=== PATIENT | male | born 1955 | race Caucasian/White ===

== ENCOUNTER → 2021-09-19 | Outpatient (CLI) | payer MEDICARE | LOC: CARD 11:30 | PROVIDERS: ATTEND Nurse Practitioner | DX: I35.1 Nonrheumatic aortic (valve) insufficiency (principal); I10 Essential (primary) hypertension | CPT/HCPCS: 93306 ==

== ENCOUNTER → 2021-11-07 | Outpatient (CLI) | payer MEDICARE ==
[~2021-11-07] MED LIST: RT-ALBUTEROL SULF 2.5 MG/3 ML PRE-MIX VIAL INH ONE
== END ==
LOC: RT 13:00
PROVIDERS: ATTEND Nurse Practitioner Family
DX: R06.02 Shortness of breath (principal)
CPT/HCPCS: 94060; 94726; 94729

== ENCOUNTER → 2021-11-09 | Outpatient (CLI) | payer MEDICARE ==
[~2021-11-09] MED LIST changes: +CATHETER FLUSH 10 ML SYR IVP PRN; +REGADENOSON 0.4 MG/5 ML SYR (LEXISCAN) IV ONE; -RT-ALBUTEROL SULF 2.5 MG/3 ML PRE-MIX VIAL INH ONE
[2021-11-09 08:48] VITALS: BP 148/60
== END ==
LOC: CARD 07:53
PROVIDERS: ATTEND Internal Medicine Cardiovascular Disease
DX: R06.09 Other forms of dyspnea (principal)
CPT/HCPCS: 78452; 93017; A9502

== ENCOUNTER → 2021-11-13 | Outpatient (CLI) | payer MEDICARE ==
[~2021-11-13] MED LIST changes: -CATHETER FLUSH 10 ML SYR IVP PRN; +GADOTERATE 0.5 MMOL/ML (CLARISCAN) 20 ML VIAL IV ONE; -REGADENOSON 0.4 MG/5 ML SYR (LEXISCAN) IV ONE
--- NOTE | 2021-11-13 15:44 | Diagnostic Imaging Report ---
PROCEDURE: MR imaging of the brain with and without contrast. TECHNIQUE: Multiplanar, multisequence MR imaging of the brain was performed with and without contrast. INDICATION: Balance issues. COMPARISON: No prior studies are available for comparison. FINDINGS: Ventricles and sulci are prominent, consistent with cerebral atrophy. Extensive periventricular and subcortical white matter changes are noted, consistent with chronic microvascular ischemia. 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 There appears to be an old infarct in the left occipital lobe. No diffusion restriction is seen to suggest acute ischemia. There are old infarcts in the bilateral thalami. The normal expected flow-voids within the carotid siphons are seen. No abnormal enhancement is identified following contrast administration. The corpus callosum is unremarkable. The sella and parasellar structures are unremarkable. IMPRESSION: Chronic changes, as described. No acute abnormality is detected. Dictated by: Dictated on workstation # [id number]
== END ==
LOC: RAD 14:45
PROVIDERS: ATTEND Nurse Practitioner
DX: R26.89 Other abnormalities of gait and mobility (principal)
CPT/HCPCS: 70553

== ENCOUNTER 2021-12-25 16:51 | Emergency (ER) | payer MEDICARE ==
[~2021-12-25] VITALS: Ht 177 cm; Wt 69.0 kg
[2021-12-25] MEDS ORDERED: LACTATED RINGERS 1,000 ML IV STA (17:08)
--- NOTE | 2021-12-25 17:14 | ED General ---
General Chief Complaint: Dizziness/Syncope Stated Complaint: MULTIPLE FALLS,LIGHTHEADED,DIZZY Nursing Triage Note: PT TO ED IN WC WITH DAUGHTER BY [place] WITH C/O DIZZINESS X 2 DAYS. DENIES CP, SOB, N/V/D, URINARTY SX, FEVER, OR ANY OTHER SX AT THIS TIME. PT REPORTS HE FELL MULTIPLE TIMES OVER THE LAST FEW DAYS. DENIES INJURIES, LOC, OR HEAD INJURY. Source of Information: Patient, Family Exam Limitations: No Limitations History of Present Illness Date Seen by Provider: Dec 25, 2021 Time Seen by Provider: 16:53 Initial Comments 66-year-old male with past medical history of CAD with no stenting and normal cardiac work-up recently (within the past couple months has had a normal stress test, carotid duplex ultrasound with no concerns, and TTE with no concerns), hypertension, hyperlipidemia, depression, current smoker coming in due to feeling lightheaded and multiple falls over the past few days. He states he has not been eating and drinking well, and when he stands his vision starts to go out. If he sits back down it gets better. The falls started over the weekend and he has had at least 5 of them. He states he always can feel it coming because he starts to blackout, and he is able to get himself to the ground slowly. He has not had any big falls where he hit his head or pass out. He always has maintained his consciousness each time without full loss of it. He is able to get up and ambulate after each event as well. He is denying any pain anywhere including any chest pain, shortness of breath, abdominal pain, nausea, vomiting, diarrhea, fever, chills, weakness focally, numbness, headache, vision changes, neck stiffness, or any other concerns. He recently started an antidepressant, but otherwise has been on his blood pressure medicine for several months. Allergies and Home Medications Allergies Coded Allergies: morphine (Unverified Allergy, Mild, Itching, 11/07/21) Uncoded Allergies: codine (Allergy, Mild, Itching, 11/07/21) Patient Home Medication List Home Medication List Reviewed: Yes Review of Systems Review of Systems Constitutional: No fever EENTM: No blurred vision Respiratory: no symptoms reported Cardiovascular: other (Near syncope) Gastrointestinal: no symptoms reported Genitourinary: no symptoms reported Musculoskeletal: no symptoms reported Skin: no symptoms reported Psychiatric/Neurological: Other (Lightheaded) Hematologic/Lymphatic: No Symptoms Reported Immunological/Allergic: no symptoms reported All Other Systems Reviewed Negative Unless Noted: Yes Past Diasvzz-Kcsfyb-Cwcytp Hx Patient Social History Tobacco Use?: Yes Tobacco type used: Cigarettes Past Medical History Surgery/Hospitalization HX: femoral bypass, meniscus, hernia repair Surgeries: Yes Physical Exam Vital Signs Vital Signs - First Documented 12/25/21 16:59 Temp 36.3 Pulse 84 Resp 21 B/P (MAP) 142/102 (115) Pulse Ox 98 O2 Delivery Room Air Capillary Refill : Less Than 3 Seconds Height, Weight, BMI Height: '" Weight: lbs. oz. kg; 22.00 BMI Method: General Appearance: No Apparent Distress, WD/WN Eyes: Bilateral Eye Normal Inspection, Bilateral Eye PERRL, Bilateral Eye EOMI HEENT: PERRL/EOMI, Normal ENT Inspection, Pharynx Normal Neck: Full Range of Motion, Normal Inspection, Non Tender, Supple Respiratory: Chest Non Tender, Lungs Clear, Normal Breath Sounds, No Accessory Muscle Use, No Respiratory Distress Cardiovascular: Regular Rate, Rhythm, No Edema, Normal Peripheral Pulses Gastrointestinal: Normal Bowel Sounds, Non Tender, Soft; No Distended, No Guarding Back: Normal Inspection, No CVA Tenderness, No Vertebral Tenderness Extremity: Normal Capillary Refill, Normal Inspection, Normal Range of Motion, Non Tender, No Calf Tenderness, No Pedal Edema Neurologic/Psychiatric: Alert, Oriented x3, No Motor/Sensory Deficits, Normal 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, 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 Norm as Tested, Other (Normal zdvyqs-hj-kweo, normal fndc-ff-ieet, normal gait, normal voice, normal recognition, normal visual ac uity and visual waddell) Skin: Normal Color, Warm/Dry Lymphatic: No Adenopathy Progress/Results/Core Measures Suspected Sepsis SIRS Temperature: Pulse: 84 Respiratory Rate: 21 Laboratory Tests 12/25/21 17:03: White Blood Count 6.8 Blood Pressure 142 /102 Mean: 115 Laboratory Tests 12/25/21 17:03: Creatinine 0.88, Platelet Count 173, Total Bilirubin 0.5 Results/Orders Lab Results Laboratory Tests Test 12/25/21 17:03 Range/Units White Blood Count 6.8 4.3-11.0 10^3/uL Red Blood Count 4.45 4.30-5.52 10^6/uL Hemoglobin 14.7 13.3-17.7 g/dL Hematocrit 42 40-54 % Mean Corpuscular Volume 95 80-99 fL Mean Corpuscular Hemoglobin 33 25-34 pg Mean Corpuscular Hemoglobin Concent 35 32-36 g/dL Red Cell Distribution Width 12.0 10.0-14.5 % Platelet Count 173 130-400 10^3/uL Mean Platelet Volume 10.2 9.0-12.2 fL Immature Granulocyte % (Auto) 0 % Neutrophils (%) (Auto) 74 42-75 % Lymphocytes (%) (Auto) 18 12-44 % Monocytes (%) (Auto) 7 0-12 % Eosinophils (%) (Auto) 1 0-10 % Basophils (%) (Auto) 0 0-10 % Neutrophils # (Auto) 5.0 1.8-7.8 10^3/uL Lymphocytes # (Auto) 1.2 1.0-4.0 10^3/uL Monocytes # (Auto) 0.5 0.0-1.0 10^3/uL Eosinophils # (Auto) 0.0 0.0-0.3 10^3/uL Basophils # (Auto) 0.0 0.0-0.1 10^3/uL Immature Granulocyte # (Auto) 0.0 0.0-0.1 10^3/uL Sodium Level 138 135-145 MMOL/L Potassium Level 4.1 3.6-5.0 MMOL/L Chloride Level 103 98-107 MMOL/L Carbon Dioxide Level 24 21-32 MMOL/L Anion Gap 11 5-14 MMOL/L Blood Urea Nitrogen 14 7-18 MG/DL Creatinine 0.88 0.60-1.30 MG/DL Estimat Glomerular Filtration Rate 94 BUN/Creatinine Ratio 16 Glucose Level 257 H 70-105 MG/DL Calcium Level 10.1 8.5-10.1 MG/DL Corrected Calcium 10.2 H 8.5-10.1 MG/DL Magnesium Level 2.0 1.6-2.4 MG/DL Total Bilirubin 0.5 0.1-1.0 MG/DL Aspartate Amino Transf (AST/SGOT) 13 5-34 U/L Alanine Aminotransferase (ALT/SGPT) 17 0-55 U/L Alkaline Phosphatase 70 40-136 U/L Troponin I < 0.028 <0.028 NG/ML B-Type Natriuretic Peptide 84.8 <100.0 PG/ML Total Protein 6.4 6.4-8.2 GM/DL Albumin 3.9 3.2-4.5 GM/DL My Orders Orders - LORENA GILBERT MD Chest 1 View, Ap/Pa Only (12/25/21 17:08) Bnp [place] (12/25/21 17:08) Cbc With Automated Diff (12/25/21 17:08) Comprehensive Metabolic Panel (12/25/21 17:08) Magnesium (12/25/21 17:08) Troponin I [place] (12/25/21 17:08) Ed Iv/Invasive Line Start (12/25/21 17:08) Ekg Tracing (12/25/21:) Monitor-Rhythm Ecg Trace Only (12/25/21 17:08) Lactated Ringers (Lr 1000 Ml Iv Solution (12/25/21 17:08) Vital Signs/I&O 12/25/21 16:59 Temp 36.3 Pulse 84 Resp 21 B/P (MAP) 142/102 (115) Pulse Ox 98 O2 Delivery Room Air Capillary Refill : Less Than 3 Seconds Blood Pressure Mean: 115 Progress Note : Progress Note 66-year-old male with above history coming in feeling lightheaded with multiple near syncopal episodes. He had multiple falls where he is slowly taken himself to the ground with no real trauma or injury. EKG with no acute ischemic changes. An IV was placed and basic labs were obtained including cardiac biomarkers. Chest x-ray ordered as well. I personally did orthostatics on the patient and his blood pressure dropped 30 points and his heart rate jumped by 20 which is consistent with orthostasis. He has within the past several months increased blood pressure medications and recently has been eating and drinking less. We will give him some IV fluids here. Patient's labs unremarkable including negative troponin. Chest x-ray with no acute findings. The patient previously had alcohol use disorder, and has recently stopped drinking quite a bit over the past couple months. I will recommend he start B12, thiamine, and folate at home. ECG Initial ECG Impression Date: Dec 25, 2021 Initial ECG Impression Time: 17:12 Initial ECG Rate: 63 Initial ECG Rhythm: Normal Sinus Comment Normal sinus rhythm, narrow QRS, normal axis, no significant ST changes or T wave abnormalities Diagnostic Imaging Diagonstic Imaging: Xray Plain Films/CT/US/NM/MRI: chest Comments [facility]. [place], [place] NAME: JUSTIN HERNANDEZ I [facility] REC#: [id number] PT STATUS: REG ER : 1955 PHYSICIAN: LORENA GILBERT MD ADMIT DATE: 12/25/21/ER Draft Date of Exam:12/25/21 CHEST 1 VIEW, AP/PA ONLY INDICATION: syncope and multiple falls COMPARISON: None FINDINGS: Single frontal view of the chest demonstrates normal heart size and pulmonary vascularity. The lungs are well aerated and clear. No large pleural effusion or pneumothorax is seen. The visualized osseous structures show no acute abnormalities. IMPRESSION: 1. No acute cardiopulmonary process. Dictated on workstation # [id number] Dict: 12/25/211734 Trans: 12/25/211735 CVB [id number] Interpreted by: BULMARO MCKEON MD Electronically signed by: Departure Impression Primary Impression: Orthostatic dizziness Disposition: HOME, SELF-CARE Condition: Stable Departure-Patient Inst. Decision time for Depature: 18:00 [place]: [facility] [place] Primary Care Physician CODY BEAN APRN (Family) Primary Care Physician Patient Instructions: Orthostatic Hypotension (DC) Add. Discharge Instructions: Your blood pressure does drop and your heart rate races when you stand up from lying while in the ER. This typically is related to medications or being dehydrated. We did give you some IV fluids. Her lab work was otherwise unremar kable. It is less likely to be the new paroxetine and more likely to be related to your blood pressure medicines. I would try cutting your amlodipine back in half for a week to see if your symptoms improve. Follow-up with your regular doctor if things are not improving to discuss other medication changes potentially. I do recommend you buy [id number]-[id number] vitamin B1, B12, and folate. I recommend taking this daily. Work/School Note: Work Release Form Date Seen in the Emergency Department: Dec 25, 2021 Return to Work: Dec 26, 2021 Restrictions: No Restrictions LORENA GILBERT MD Dec 25, 2021 17:14
[2021-12-25 17:21] LABS: BASOPHILS % (AUTO) 0 % (0-10); EOSINOPHILS % (AUTO) 1 % (0-10); HEMATOCRIT 42 % (40-54); HEMOGLOBIN 14.7 g/dL (13.3-17.7); LYMPHOCYTES # (AUTO) 1.2 10^3/uL (1.0-4.0); LYMPHOCYTES % (AUTO) 18 % (12-44); MEAN CORPUSCULAR HEMOGLOBIN 33 pg (25-34); MEAN CORPUSCULAR HGB CONC 35 g/dL (32-36); MEAN CORPUSCULAR VOLUME 95 fL (80-99); MEAN PLATELET VOLUME 10.2 fL (9.0-12.2); MONOCYTES # (AUTO) 0.5 10^3/uL (0.0-1.0); MONOCYTES % (AUTO) 7 % (0-12); NEUTROPHILS % (AUTO) 74 % (42-75); PLATELET COUNT 173 10^3/uL (130-400); WHITE BLOOD COUNT 6.8 10^3/uL (4.3-11.0)
--- NOTE | 2021-12-25 17:37 | Diagnostic Imaging Report ---
INDICATION: syncope and multiple falls COMPARISON: None FINDINGS: Single frontal view of the chest demonstrates normal heart size and pulmonary vascularity. The lungs are well aerated and clear. No large pleural effusion or pneumothorax is seen. The visualized osseous structures show no acute abnormalities. IMPRESSION: 1. No acute cardiopulmonary process. Dictated by: Dictated on workstation # [id number]
[2021-12-25 17:41] LABS: ALANINE AMINOTRANSFERASE 17 U/L (0-55); ALBUMIN 3.9 GM/DL (3.2-4.5); ALKALINE PHOSPHATASE 70 U/L (40-136); BILIRUBIN,TOTAL 0.5 MG/DL (0.1-1.0); BUN/CREATININE RATIO 16; CALCIUM 10.1 MG/DL (8.5-10.1); CARBON DIOXIDE 24 MMOL/L (21-32); CHLORIDE 103 MMOL/L (98-107); CREATININE SERUM 0.88 MG/DL (0.60-1.30); GFR ESTIMATED 94; GLUCOSE 257 MG/DL (70-105); POTASSIUM 4.1 MMOL/L (3.6-5.0); SODIUM 138 MMOL/L (135-145); TOTAL PROTEIN 6.4 GM/DL (6.4-8.2)
[2021-12-25 18:00] VITALS: BP 136/82
== END 2021-12-25 18:00 | disposition home or self-care (01) ==
LOC: EDUNIT# 16:51 → ER 16:54
DX: R42 Dizziness and giddiness (principal); R55 Syncope and collapse; R29.6 Repeated falls; F17.210 Nicotine dependence, cigarettes, uncomplicated; Z28.310 Unvaccinated for COVID-19
CPT/HCPCS: 36415; 71045; 80053; 83735; 83880; 84484; 85025; 93005; 93041

== ENCOUNTER → 2022-01-14 | Outpatient (CLI) | payer MEDICARE ==
[~2022-01-14] MED LIST changes: +FUROSEMIDE 40 MG/4 ML INJ (LASIX) IVP ONE; +FUROSEMIDE 40 MG/4 ML INJ (LASIX) ONE; -GADOTERATE 0.5 MMOL/ML (CLARISCAN) 20 ML VIAL IV ONE
[2022-01-14] MEDS: CATHETER FLUSH 10 ML SYR IVP PRN ×2 (07:22→07:37)
--- NOTE | 2022-01-14 15:42 | Diagnostic Imaging Report ---
EXAMINATION: Lasix renogram INDICATION: Left ureteral obstruction COMPARISON: None TECHNIQUE: Following the IV administration of 4.99 mCi of Tc 99m MAG3, sequential dynamic images of the kidneys were obtained in the posterior projection for 30 minutes. After the IV administration of Lasix, 40 mg, additional images were acquired for 30 minutes. Time activity whole kidney curves were analyzed. FINDINGS: There is slight asymmetric uptake and distribution of the radiopharmaceutical within the renal cortex of each kidney and the differential function is 45.2 % for the right and 54.8 % for the left kidney. The right kidney is slightly smaller than the left kidney. On the right, the time to peak activity is 4.48 minutes with a T-one-half emptying time of 7 minutes. Following Lasix administration, there is continued emptying of the pelvis with a Lasix T-one-half emptying time of 4.5 minutes. On the left, the time to peak activity is delayed at 16.48minutes with a T-one-half emptying time of 10 minutes. Following Lasix administration, there is continued emptying of the pelvis with a Lasix T-one-half emptying time of 10 minutes. IMPRESSION: 1. Slightly smaller right kidney compared to the left kidney. 2. Relatively normal function of the RIGHT kidney. 3. Findings do suggest obstructive features of the LEFT kidney/ureter. Dictated by: Dictated on workstation # [id number]
== END ==
LOC: CARD 07:00
PROVIDERS: ATTEND Urology
DX: N27.0 Small kidney, unilateral (principal); N13.5 Crossing vessel and stricture of ureter without hydronephrosis
CPT/HCPCS: 78708; A9562

== ENCOUNTER → 2022-02-22 | Outpatient (CLI) | payer MEDICARE ==
--- NOTE | 2022-02-22 16:11 | Diagnostic Imaging Report ---
CLINICAL INDICATION: Patient has chronic cervical spine pain. Patient has history of old injury. EXAM: MRI of the cervical spine performed without IV contrast. Sequences include sagittal T2, sagittal T1, sagittal STIR, and axial T2. COMPARISON: None. FINDINGS: There is no acute cervical spine fracture or dislocation. There are Modic type I degenerative signal changes involving the C3-C4 and C5-C6 levels. There are hypertrophic spurs involving the cervical spine and facet arthropathy. Limited visualization of posterior fossa is unremarkable. There is intraosseous hemangioma within the T3 vertebra. There is localized deformity of the cord seen at the C5-C6 levels. There is motion artifact and CSF flow artifact which limits evaluation of the cervical cord. There are hypertrophic spurs involving the cervical spine. C1-C2: There are degenerative spurs involving the atlantoodontoid interval. There is no significant central canal narrowing. C2-C3: There is mild bilateral facet arthropathy. There is a small posterior disk bulge. There is no significant central canal narrowing. There is mild right neural foramen narrowing. There is no significant left neural foramen narrowing. C3-C4: There is mild diffuse disk bulge. There are hypertrophic disk spurs in the right subarticular region. There is mild to moderate central canal stenosis. There is severe right neural foramen narrowing. There is no significant left neural foramen narrowing. C4-C5: There is diffuse disk bulge and small right uncinate spurs. There is mild central canal narrowing. There is moderate to severe bilateral neural foramen narrowing with the right side worse than the left. C5-C6: There is a diffuse disk bulge with moderate loss of disk space height and bilateral uncinate spurs. There is severe bilateral neural foramen narrowing. There is severe central canal stenosis. C6-C7: There is diffuse disk bulge with a posterior disk bulge. There is moderate left facet arthropathy/hypertrophy and moderate right facet arthropathy. There is mild to moderate central canal stenosis. There is moderate left neural foramen narrowing and mild right neural foramen narrowing. C7-T1: There is no significant central canal or neural foramen narrowing. T1-T2: There is a small posterior disk bulge. There is no significant central canal narrowing. There is mild bilateral neural foramen narrowing. IMPRESSION: There is multilevel cervical spine degenerative disk disease which is described above. Dictated by: Dictated on workstation # [id number]
== END ==
LOC: RAD 14:45
PROVIDERS: ATTEND Nurse Practitioner
DX: M48.03 Spinal stenosis, cervicothoracic region (principal); M48.05 Spinal stenosis, thoracolumbar region; M47.812 Spondylosis without myelopathy or radiculopathy, cervical region; M50.23 Other cervical disc displacement, cervicothoracic region; Z87.828 Personal history of other (healed) physical injury and trauma
CPT/HCPCS: 72141

== ENCOUNTER 2022-03-04 22:52 | Emergency (ER) | payer MEDICARE ==
[~2022-03-04] VITALS: Ht 177.8 cm; Wt 70.3 kg
[2022-03-04 23:06] LABS: BASOPHILS % (AUTO) 1 % (0-10); EOSINOPHILS % (AUTO) 1 % (0-10); HEMATOCRIT 41 % (40-54); HEMOGLOBIN 14.3 g/dL (13.3-17.7); LYMPHOCYTES # (AUTO) 1.1 10^3/uL (1.0-4.0); LYMPHOCYTES % (AUTO) 19 % (12-44); MEAN CORPUSCULAR HEMOGLOBIN 33 pg (25-34); MEAN CORPUSCULAR HGB CONC 35 g/dL (32-36); MEAN CORPUSCULAR VOLUME 93 fL (80-99); MEAN PLATELET VOLUME 9.9 fL (9.0-12.2); MONOCYTES # (AUTO) 0.4 10^3/uL (0.0-1.0); MONOCYTES % (AUTO) 7 % (0-12); NEUTROPHILS # (AUTO) 4.2 10^3/uL (1.8-7.8); NEUTROPHILS % (AUTO) 72 % (42-75); PLATELET COUNT 181 10^3/uL (130-400); WHITE BLOOD COUNT 5.8 10^3/uL (4.3-11.0)
[2022-03-04 23:15] LABS: POTASSIUM 3.9 MMOL/L (3.6-5.0)
[2022-03-04] MEDS ORDERED: LACTATED RINGERS 1,000 ML IV ONE (23:15)
[2022-03-04 23:16] LABS: CALCIUM 9.5 MG/DL (8.5-10.1)
[2022-03-04 23:21] LABS: CREATININE SERUM 0.84 MG/DL (0.60-1.30)
[2022-03-04 23:23] LABS: MAGNESIUM 2.1 MG/DL (1.6-2.4)
[2022-03-04 23:53] LABS: BILIRUBIN,URINE NEGATIVE (NEGATIVE); CLARITY,URINE CLEAR; COLOR,URINE YELLOW; GLUCOSE, URINE (UA) 1+ (NEGATIVE); KETONES,URINE NEGATIVE (NEGATIVE); LEUKOCYTE ESTERASE ,URINE TRACE (NEGATIVE); NITRITE,URINE NEGATIVE (NEGATIVE); PROTEIN,URINE NEGATIVE (NEGATIVE)
[2022-03-05 00:13] LABS: BACTERIA,URINE NEGATIVE /HPF
[2022-03-05] MEDS ORDERED: TETANUS,DIPTH,PERTUSS P/F (BOOSTRIX) 0.5 ML VIAL IM ONE (02:30)
--- NOTE | 2022-03-05 02:33 | ED Fall/Injury ---
General Chief Complaint: Trauma-Non Activation Stated Complaint: FALL,ALCOHOL INTOXICATION Nursing Triage Note: PT TO ED BY EMS WITH C/O FALL AND ETOH/MARIJUANA INTOXICATION. EMS REPORTS THEY WERE CALLED BY PT FOR FALL, PT HAD GOTTEN OFF FLOOR AND AMB BACK TO BED PRIOR TO EMS ARRIVAL. C/O R SHOULDER AND ELBOW PAIN. DENIES LOC. PT REPORTS HE DRANK A 6 PACK AND AND SMOKE 2 BOWLS OF MARIJUANA TONIGHT. Source: patient, EMS, old records Exam Limitations: no limitations (KULWANT TILLEY) History of Present Illness Date Seen by Provider: Mar 04, 2022 Time Seen by Provider: 22:53 Initial Comments This is a 66yo M with pmhx of HTN, HLD, CAD, depression, tobacco use d/o, alcohol use d/o, marijuana use, stroke (most recent 8mo ago), T2DM, and orthostatic hypotension who was brought by EMS following a fall on the night of 04Mar2022. Endorses drinking a 6 pack of beer and smoking 2 bowls of marijuana the same night prior to the fall. Pt was urinating when he fell in the bathroom and remembers the fall. Fell on his right side, denies loss of consciousness or trauma to the head or neck. Pt was able to ambulate himself back to the bed which was where EMS found the patient. Blood sugar 188, BP 114/96 by EMS. Patient lives on his own and ambulates with a walker. Occurred: just prior to arrival Severity: mild Injuries/Pain Location: head (abrasion at right ear), upper extremity (abration at right and left upper extremity) Context: other (EtOH and Marijuana Intoxication) Loss of Consciousness: no loss of consciousness (KULWANT TILLEY) Allergies and Home Medications Allergies Coded Allergies: morphine (Unverified Allergy, Mild, Itching, 11/07/21) Uncoded Allergies: codine (Allergy, Mild, Itching, 11/07/21) Patient Home Medication List Home Medication List Reviewed: Yes (BASHIR VAIL MD) Review of Systems Review of Systems Constitutional: no symptoms reported Eyes: No Symptoms Reported Respiratory: no symptoms reported Cardiovascular: no symptoms reported Gastrointestinal: no symptoms reported Musculoskeletal: muscle pain (right shoulder and neck), muscle stiffness (right shoulder and neck) Skin: other (Abrasions of right arm, left arm, and right ear) (KULWANT TILLEY) Past Xgtkhbg-Kuvbfz-Jqttno Hx Patient Social History Tobacco Use?: Yes Tobacco type used: Cigarettes Smoking Status: Current Everyday Smoker Use of E-Cig and/or Vaping dev: No Substance use?: Yes Substance type: Marijuana Substance frequency: Daily Alcohol Use?: Yes Alcohol type: Beer Alcohol Frequency: Couple times a week Pt feels they are or have been: No (KULWANT TILLEY) Immunizations Up To Date Influenza Vaccine Up-to-Date: No; Not Current (KULWANT TILLEY) Past Medical History Surgery/Hospitalization HX: femoral bypass, meniscus, hernia repair, HTN Surgeries: Yes (KULWANT TILLEY) Physical Exam Vital Signs Vital Signs - First Documented 03/04/22 22:55 Temp 36.5 Pulse 80 Resp 16 B/P (MAP) 130/85 (100) Pulse Ox 97 O2 Delivery Room Air (BASHIR VAIL MD) Vital Signs Capillary Refill : Less Than 3 Seconds (KULWANT TILLEY) Height, Weight, BMI Height: '" Weight: lbs. oz. kg; 22.00 BMI Method: General Appearance: WD/WN, no apparent distress Cardiovascular: regular rate, rhythm, no edema, no murmur Respiratory: chest non-tender, lungs clear, normal breath sounds, no respiratory distress, no accessory muscle use Extremities: normal range of motion, other (abrasions on right ear, right arm, and left arm. Muscle spasms of the upper cervical spine and right shoulder that patient endorsed "feels good" as it is palpated.) Neurologic/Psychiatric: oriented x 3, abnormal gait (Shuffling gait, pt does use a walker at home but has some ability to ambulate without walker), other (Intoxicated on marijuana and alcohol, euphoric in demeanor) Skin: normal color, warm/dry (KULWANT TILLEY) [place] Coma Score Best Eye Response: (4) Open Spontaneously Best Verbal Response: (5) Oriented Best Motor Response: (6) Obeys Commands Mariia Total: 15 (KULWANT TILLEY) Progress/Results/Core Measures Results/Orders Lab Results Laboratory Tests Test 03/04/22 22:58 03/04/22 23:48 Range/Units White Blood Count 5.8 4.3-11.0 10^3/uL Red Blood Count 4.40 4.30-5.52 10^6/uL Hemoglobin 14.3 13.3-17.7 g/dL Hematocrit 41 40-54 % Mean Corpuscular Volume 93 80-99 fL Mean Corpuscular Hemoglobin 33 25-34 pg Mean Corpuscular Hemoglobin Concent 35 32-36 g/dL Red Cell Distribution Width 12.2 10.0-14.5 % Platelet Count 181 130-400 10^3/uL Mean Platelet Volume 9.9 9.0-12.2 fL Immature Granulocyte % (Auto) 0 % Neutrophils (%) (Auto) 72 42-75 % Lymphocytes (%) (Auto) 19 12-44 % Monocytes (%) (Auto) 7 0-12 % Eosinophils (%) (Auto) 1 0-10 % Basophils (%) (Auto) 1 0-10 % Neutrophils # (Auto) 4.2 1.8-7.8 10^3/uL Lymphocytes # (Auto) 1.1 1.0-4.0 10^3/uL Monocytes # (Auto) 0.4 0.0-1.0 10^3/uL Eosinophils # (Auto) 0.0 0.0-0.3 10^3/uL Basophils # (Auto) 0.0 0.0-0.1 10^3/uL Immature Granulocyte # (Auto) 0.0 0.0-0.1 10^3/uL Sodium Level 136 135-145 MMOL/L Potassium Level 3.9 3.6-5.0 MMOL/L Chloride Level 103 98-107 MMOL/L Carbon Dioxide Level 22 21-32 MMOL/L Anion Gap 11 5-14 MMOL/L Blood Urea Nitrogen 12 7-18 MG/DL Creatinine 0.84 0.60-1.30 MG/DL Estimat Glomerular Filtration Rate 95 BUN/Creatinine Ratio 14 Glucose Level 172 H 70-105 MG/DL Calcium Level 9.5 8.5-10.1 MG/DL Magnesium Level 2.1 1.6-2.4 MG/DL Serum Alcohol 155 H <10 MG/DL Urine Color YELLOW Urine Clarity CLEAR Urine pH 6.0 5-9 Urine Specific [place] <=1.005 1.016-1.022 Urine Protein NEGATIVE NEGATIVE Urine Glucose (UA) 1+ H NEGATIVE Urine Ketones NEGATIVE NEGATIVE Urine Nitrite NEGATIVE NEGATIVE Urine Bilirubin NEGATIVE NEGATIVE Urine Urobilinogen 0.2 < = 1.0 MG/DL Urine Leukocyte Esterase TRACE H NEGATIVE Urine RBC (Auto) NEGATIVE NEGATIVE Urine RBC NONE /HPF Urine WBC NONE /HPF Urine Crystals NONE /LPF Urine Bacteria NEGATIVE /HPF Urine Casts NONE /LPF Urine Mucus NEGATIVE /LPF Urine Culture Indicated NO (BASHIR VAIL MD) My Orders Orders - BASHIR VAIL MD Alcohol (03/04/22 23:01) Basic Metabolic Panel (03/04/22 23:01) Cbc With Automated Diff (03/04/22 23:01) Magnesium (03/04/22 23:01) Ed Iv/Invasive Line Start (03/04/22 23:01) Ua Culture If Indicated (03/04/22 23:01) Ct Head/Cervical Spine Wo (03/04/22 23:01) Chest 1 View, Ap/Pa Only (03/04/22 23:01) Lactated Ringers (Lr 1000 Ml Iv Solution (03/04/22 23:15) Dipht,Pertuss(Acell),Tet Adult (Boostrix (03/05/22 02:30) (BASHIR VALI MD) Medications Given in ED (BASHIR VAIL MD) Vital Signs/I&O 03/04/22 03/05/22 22:55 03:00 Temp 36.5 Pulse 80 72 Resp 16 18 B/P (MAP) 130/85 (100) 124/79 Pulse Ox 97 97 O2 Delivery Room Air Room Air 03/05/22 00:00 Intake Total 1000 ml Balance 1000 ml (BASHIR VAIL MD) Blood Pressure Mean: 100 Progress Progress Note : Progress Note Patient was interviewed and examined by me personally along with MS 4. He was found to have some minor abrasions of the upper extremities and the right shoulder. He was experiencing muscle tension in the musculature of the upper back medial to the right scapula. He was noted to have a spasming muscle in this area that was tender to palpation but he felt relief with pressure on palpation. Patient was alert and oriented but appeared intoxicated. He was cheerful and demeanor. CT of the head and cervical spine revealed no significant injury. Labs were relatively unremarkable except for elevated alcohol level. Patient was hydrated and allowed to sober for about 4 hours. He demonstrated safe ambulation at baseline. He normally uses a walker. He was discharged home in stable condition with his daughter. He is scheduled to have some urologic procedures in the near future. He was strongly advised to quit drinking so as to not cause complications or interference with these needed procedures. Patient had multiple abrasions and a tetanus booster was administered. (BASHIR VAIL MD) Diagnostic Imaging Diagonstic Imaging: CT Plain Films/CT/US/NM/MRI: c-spine, head Comments CT head and cervical spine [facility] reports reviewed. There were no acute intracranial injuries or skull fractures appreciated. There was moderate spondylosis with protruding disc disease and mild spinal stenosis noted on the CT of cervical spine. No acute traumatic injury was noted to the cervical spine. NAME: JUSTIN HERNANDEZ REC#: [id number] PT STATUS: DEP ER : 1955 PHYSICIAN: BASHIR VAIL MD ADMIT DATE: 03/04/22/ER Draft Date of Exam:03/04/22 CT HEAD/CERVICAL SPINE WO Clinical Indication: Patient is status post fall. Exam: Head CT without IV contrast with sagittal and coronal reformations. Axial CT scan of the cervical spine with sagittal and coronal reformations. Auto Exposure Controls were utilized during the CT exam to meet ALARA standards for radiation dose reduction. Comparison: MRI of the brain without contrast dated 11/13/2021. MRI of the cervical spine without contrast dated 02/22/2022. Findings: Head CT: There is no evidence of acute intracranial process, brain herniation or midline shift. There is no hydrocephalus. Stable small chronic infarct involving left cerebellar hemisphere and left parietal lobe. Stable small chronic infarcts involving the bilateral thalamic region and posterior limb of the right internal capsule region. There are multiple focal, patchy and confluent areas of low-attenuation white matter changes involving both cerebral hemispheres and periventricular regions, likely representing chronic small vessel ischemic disease and necrosis. Stable low-density area involving the right side of the andrae right midbrain which may be related to a layering and degeneration. The extracranial soft tissues, skull, and orbits are unremarkable. Paranasal sinuses and mastoid air cells are clear. Cervical spine: No acute cervical spine fracture or dislocation. There are diffuse disk bulges seen at the C3-C7 levels. There is moderate left C5-C6 neural foramen narrowing due to uncinate spurs. There is severe right C3-C4 neural foramen narrowing due to uncinate spurs. There is at least mild central canal narrowing seen from the C2-C7 levels. Small calcifications within left thyroid lobe is seen. Emphysematous lung disease is seen. IMPRESSION: 1: There is no evidence of acute intracranial process. There is no intracranial hemorrhage. There is no skull fracture. 2: There is cervical spine degenerative disease with no acute fracture or dislocation. I agree with [facility] report. Dictated on workstation # [id number] Dict: 03/05/22 0803 Trans: 03/05/22 0915 [facility] [id number] Interpreted by: YOHANA TRAN MD Diagonstic Imaging: Xray Plain Films/CT/US/NM/MRI: chest Comments Chest x-ray was viewed by me. Radiologist report not available. No acute abnormalities were appreciated by my interpretation. (BASHIR VAIL MD) Departure Impression Primary Impression: Alcohol intoxication Qualified Codes: F10.920 - Alcohol use, unspecified with intoxication, u ncomplicated Additional Impressions: Fall on same level Qualified Codes: W18.30XA - Fall on same level, unspecified, initial encounter Multiple abrasions Disposition: HOME, SELF-CARE Condition: Improved Departure-Patient Inst. Decision time for Depature: 02:54 (BASHIR VAIL MD) Referrals: [facility] [place] (PCP) Primary Care Physician CODY BEAN APRN (Family) Primary Care Physician Patient Instructions: ALCOHOL AND SUBSTANCE ABUSE, Preventing Falls ED Add. Discharge Instructions: Avoid drinking alcohol as this greatly increases your risk for falls. Follow-up with your primary care provider soon as possible. Use your walker when you get up and ambulate. Return to care if you have any worsening of symptoms. All discharge instructions reviewed with patient and/or family. Voiced understanding. Medical Student Attestation and Attending Note: I have personally interviewed and examined this patient along with Kulwant Tilley, MS 4. I have reviewed student documentation including history, physical, and assessments. I agree with the documentation except where otherwise noted. Exam: General: Alert, oriented, no acute distress, well developed, appears intoxicated HEENT: Normocephalic and atraumatic, abrasion on the pinna of the right ear without active bleeding Heart: Regular rate and rhythm without murmur Lungs: Clear to auscultation bilaterally with normal effort Abdomen: Soft, nontender, nondistended, normal bowel sounds Extremities: Normal range of motion, scattered abrasions on the arms and right shoulder Neuropsych: Alert, oriented, no focal deficits Skin: Warm and dry without rashes (BASHIR VAIL MD) Copy Copies To 1: [facility]/KULWANT GAVIRIA Mar 05, 2022 02:33 BASHIR VAIL MD Mar 05, 2022 02:55
[2022-03-05 03:00] VITALS: BP 124/79
--- NOTE | 2022-03-05 09:15 | Diagnostic Imaging Report ---
Clinical Indication: Patient is status post fall. Exam: Head CT without IV contrast with sagittal and coronal reformations. Axial CT scan of the cervical spine with sagittal and coronal reformations. Auto Exposure Controls were utilized during the CT exam to meet ALARA standards for radiation dose reduction. Comparison: MRI of the brain without contrast dated 11/13/2021. MRI of the cervical spine without contrast dated 02/22/2022. Findings: Head CT: There is no evidence of acute intracranial process, brain herniation or midline shift. There is no hydrocephalus. Stable small chronic infarct involving left cerebellar hemisphere and left parietal lobe. Stable small chronic infarcts involving the bilateral thalamic region and posterior limb of the right internal capsule region. There are multiple focal, patchy and confluent areas of low-attenuation white matter changes involving both cerebral hemispheres and periventricular regions, likely representing chronic small vessel ischemic disease and necrosis. Stable low-density area involving the right side of the andrae right midbrain which may be related to a layering and degeneration. The extracranial soft tissues, skull, and orbits are unremarkable. Paranasal sinuses and mastoid air cells are clear. Cervical spine: No acute cervical spine fracture or dislocation. There are diffuse disk bulges seen at the C3-C7 levels. There is moderate left C5-C6 neural foramen narrowing due to uncinate spurs. There is severe right C3-C4 neural foramen narrowing due to uncinate spurs. There is at least mild central canal narrowing seen from the C2-C7 levels. Small calcifications within left thyroid lobe is seen. Emphysematous lung disease is seen. IMPRESSION: 1: There is no evidence of acute intracranial process. There is no intracranial hemorrhage. There is no skull fracture. 2: There is cervical spine degenerative disease with no acute fracture or dislocation. I agree with [facility] report. Dictated by: Dictated on workstation # [id number]
--- NOTE | 2022-03-05 10:29 | Diagnostic Imaging Report ---
INDICATION: Fall with chest pain Frontal chest obtained at 1126 p.m. COMPARISON: 12/25/2021 The heart is mildly enlarged. Mediastinal silhouette is unremarkable. There are chronic appearing increased interstitial markings. There is no definite consolidation or pneumothorax or pleural fluid. There is a calcified granulomata in the left midlung IMPRESSION: Marked COPD changes with hyperinflation and chronic increased interstitial markings. No acute process in the chest. Dictated by: Dictated on workstation # [id number]
== END 2022-03-05 03:00 | disposition home or self-care (01) ==
LOC: EDUNIT# 22:52 → ER 22:53
DX: S40.211A Abrasion of right shoulder, initial encounter (principal); S00.411A Abrasion of right ear, initial encounter; S40.812A Abrasion of left upper arm, initial encounter; S40.811A Abrasion of right upper arm, initial encounter; F10.229 Alcohol dependence with intoxication, unspecified; F17.210 Nicotine dependence, cigarettes, uncomplicated; Y90.6 Blood alcohol level of 120-199 mg/100 ml; Z28.310 Unvaccinated for COVID-19; W18.30XA Fall on same level, unspecified, initial encounter; Y92.002 Bathroom of unspecified non-institutional (private) residence as the place of occurrence of the external cause
CPT/HCPCS: 70450; 71045; 72125; 80048; 81000; 83735; 85025; 99283; G0480; 36415; 80320; 90715

== ENCOUNTER 2022-03-05 05:34 | Outpatient (CLI) | payer MEDICARE ==
[~2022-03-05] VITALS: Ht 175.3 cm; Wt 70.3 kg
[2022-03-07] MEDS ORDERED: TIOT18CA2 IH (11:38)
[2022-03-07] MEDS ORDERED: BUDE10.2 IH (11:38)
[2022-03-07] MEDS ORDERED: LISI40TA9 PO (11:38)
[2022-03-07] MEDS ORDERED: FLUO10CA29 PO (11:38)
[2022-03-07] MEDS ORDERED: ASPI-999 PO (11:38)
[2022-03-07] MEDS ORDERED: ATOR20TA66 PO (11:38)
[2022-03-07] MEDS ORDERED: ALBU8.5H6 (11:38)
[2022-03-07] MEDS ORDERED: AMLO-250 PO (11:38)
== END 2022-03-07 11:48 | disposition home or self-care (01) ==
LOC: PREOP 05:34
PROVIDERS: ATTEND Surgery
DX: Z01.818 Encounter for other preprocedural examination (principal)

== ENCOUNTER 2022-03-12 09:35 | Day surgery (SDC) | payer MEDICARE ==
[2022-03-12] VITALS (8 sets, daily range): BP systolic 112–162; BP diastolic 69–85
[~2022-03-12] VITALS: Ht 175.3 cm; Wt 70.3 kg
[~2022-03-12 09:35] MED LIST changes: +ALBU8.5H6; +AMLO-250 PO; +ASPI-999 PO; +ATOR20TA66 PO; +BUDE10.2 IH; +FLUO10CA29 PO; -FUROSEMIDE 40 MG/4 ML INJ (LASIX) IVP ONE; -FUROSEMIDE 40 MG/4 ML INJ (LASIX) ONE; +LISI40TA9 PO; +TIOT18CA2 IH
[2022-03-12] MEDS ORDERED: LACTATED RINGERS 1,000 ML IV STA (09:36)
[2022-03-12] MEDS ORDERED: HURRICAINE EXT TUBE (BENZOCAINE) XX PRN (09:45)
[2022-03-12] MEDS ORDERED: PROPOFOL INJECTION 50 ML IV ONE (10:08)
[2022-03-12] MEDS ORDERED: KETAMINE 50 MG/5 ML SYRINGE ONE (10:09)
[2022-03-12] MEDS ORDERED: TMSL.4C PO (10:19)
[2022-03-12] MEDS ORDERED: MONT-40 PO (10:19)
[2022-03-12] MEDS ORDERED: CETI10TA17 PO (10:19)
[2022-03-12] MEDS ORDERED: MELA1TAB15 PO (10:19)
[2022-03-12] MEDS ORDERED: ATOR40TA70 PO (10:19)
[2022-03-12] MEDS ORDERED: FLUO10CA33 PO (10:19)
--- NOTE | 2022-03-12 10:46 | Discharge Inst-Simple/Standard ---
Discharge Inst-Standard Patient Instructions/Follow Up Plan of Care/Instructions/FU: Becca - 2 weeks Activity as Tolerated: Yes Discharge Diet: Regular Diet RAHUL VALLEJO DO Mar 12, 2022 10:46
--- NOTE | 2022-03-12 10:56 | Anesthesia-General Post-Op ---
MAC Patient Condition Mental Status/LOC: Same as Preop Cardiovascular: Satisfactory Nausea/Vomiting: Absent Respiratory: Satisfactory Pain: Controlled Complications: Absent Post Op Complications Complications None Follow Up Care/Instructions Patient Instructions None needed. Anesthesiology Discharge Order Discharge Order Patient is doing well, no complaints, stable vital signs, no apparent adverse anesthesia problems. No complications reported per nursing. BRITTNI MARCANO CRNA Mar 12, 2022 10:56
--- NOTE | 2022-03-12 19:19 | OPERATIVE REPORT ---
DATE OF SERVICE: 03/12/2022 PREOPERATIVE DIAGNOSIS: GERD and screening colonoscopy. POSTOPERATIVE DIAGNOSIS: Reactive gastropathy and sigmoid colon polyp. PROCEDURE: EGD with biopsies, colonoscopy with snare polypectomy x1. SURGEON: Rahul Brown DO ANESTHESIA: Per DATABASE PROGRAMMER. ESTIMATED BLOOD LOSS: None. COMPLICATIONS: None. INDICATIONS: The patient is a 66-year-old male with GERD symptoms and needing screening colonoscopy. He understands risks and benefits of procedure and wished to proceed. Consent was on chart. DESCRIPTION OF PROCEDURE: The patient was taken to the endoscopy suite, placed in left lateral position. A timeout was performed. Scope was inserted in the mouth, down the esophagus, stomach and into the duodenum without difficulty. There were no polyps, masses or ulcerations within the duodenum. Scope was slowly retracted. The stomach was further insufflated. Changes appear noted with reactive gastropathy present. Biopsy antrum was obtained. Scope was retroflexed noting no other pathology. Scope was returned to neutral position slowly withdrawn. The distal esophagus, some changes of some possible reflux esophagitis with slight mucosal change at the GE junction. Biopsy of this area was obtained. Scope was slowly retracted back completely removed, noting no other pathology. Digital rectal exam was performed. No palpable polyps, masses or ulcerations. Scope was inserted in the rectum and advanced all the way to the cecum with minimal difficulty. Prep was adequate. Scope was slowly retracted back. No polyps, masses, or ulceration in the cecum, ascending, transverse and descending colon. Sigmoid colon polyp was present where snare polypectomy was performed. Scope was then continuously directed back no pulse pressure ulcerations with remainder of the sigmoid and colon. Scope was then continued to be drawn back into the rectum, which also retroflexed noting some internal hemorrhoids. Scope was returned to its normal position. Slowly withdrawn until completely removed. The patient tolerated the procedure well without any complications, taken to recovery room in stable condition. RECOMMENDATIONS: The patient will need repeat colonoscopy in 5 years and any issues before that we will see him at that time. We will await biopsy results for further recommendations of the EGD. I would continue on all current medications. Job ID: [id number] DocumentID: [id number] Dictated Date: 03/12/2022 10:54:29 Restaurant Crew Person Date: 03/12/2022 19:18:00 Dictated By: RAHUL BROWN DO
== END 2022-03-12 11:50 | disposition home or self-care (01) ==
LOC: ENDO 09:35
PROVIDERS: ATTEND Surgery
DX: Z12.11 Encounter for screening for malignant neoplasm of colon (principal); D12.5 Benign neoplasm of sigmoid colon; K21.00 Gastro-esophageal reflux disease with esophagitis, without bleeding; K29.70 Gastritis, unspecified, without bleeding; K31.89 Other diseases of stomach and duodenum; E11.9 Type 2 diabetes mellitus without complications; F17.210 Nicotine dependence, cigarettes, uncomplicated; Z28.310 Unvaccinated for COVID-19
CPT/HCPCS: 82947

== ENCOUNTER → 2022-04-09 | Outpatient (CLI) | payer MEDICARE ==
[~2022-04-09] MED LIST changes: +ATOR40TA70 PO; +CETI10TA17 PO; +FLUO10CA33 PO; +MELA1TAB15 PO; +MONT-40 PO; +TMSL.4C PO
--- NOTE | 2022-04-09 18:14 | Diagnostic Imaging Report ---
PROCEDURE: US Bilateral lower extremity arterial. TECHNIQUE: Multiple real-time grayscale images are obtained through both lower extremity arterial systems with color Doppler imaging and color Doppler spectral analysis. INDICATION: Peripheral vascular disease. Hypertension, coronary artery disease, and smoking. COMPARISON: None available. FINDINGS: RIGHT SIDE: Common femoral, proximal deep femoral, superficial femoral, popliteal, posterior tibial, and dorsalis pedis arteries are all patent by color Doppler imaging. There are predominantly biphasic waveforms throughout the right lower extremity. A femoral-femoral bypass graft is present, and there is a focal stenosis at its anastomosis with the right common femoral artery, and peak systolic velocity is 412 cm/s in this region. LEFT SIDE: Color Doppler imaging shows patency of the common femoral, proximal deep femoral, superficial femoral, popliteal, posterior tibial, and dorsalis pedis arteries. There are triphasic waveforms above the knee. Below the knee, there is a mixture of biphasic and monophasic waveforms. No stenosis at the anastomosis of the femoral-femoral bypass graft. Ankle-brachial indices were not reported on this exam. IMPRESSION: 1. Patent femoral-femoral bypass graft likely supplying [id number] flow. There is severe stenosis at the anastomosis of the bypass graft with the right common femoral artery. 2. No additional sites of high-grade arterial stenosis in the bilateral lower extremities. Dictated by: Dictated on workstation # [id number]
== END ==
LOC: RAD 12:30
PROVIDERS: ATTEND Internal Medicine Cardiovascular Disease
DX: I70.701 Unspecified atherosclerosis of other type of bypass graft(s) of the extremities, right leg (principal); I10 Essential (primary) hypertension; F17.210 Nicotine dependence, cigarettes, uncomplicated
CPT/HCPCS: 93925

== ENCOUNTER 2022-05-23 19:00 | Emergency (ER) | payer MEDICARE ==
[~2022-05-23] VITALS: Ht 177.8 cm; Wt 63.3 kg
[2022-05-23 19:07] VITALS: BP 126/82
--- NOTE | 2022-05-23 19:34 | ED General ---
General Chief Complaint: General Problems/Pain Stated Complaint: WEIGHT LOSS/NAUSEA/NOT EATING/LIGHTHEADED/DIZZY Nursing Triage Note: Pt presents via wheelchair to ER. Pt's daughter states he's had overall health decline over the past approx 2 weeks. Pt without specific complaint at this time. Pt daughter states he has had increased weight loss, decreased appetite, nausea, dizziness and light headedness that is worse than normal. Pt was to see his PCP today and was rescheduled for next week prompting the ER visit. Source of Information: Patient Exam Limitations: No Limitations History of Present Illness Date Seen by Provider: May 23, 2022 Time Seen by Provider: 19:22 Initial Comments Patient is a 66-year-old male with multiple chronic medical problems including diabetes, chronic neck and back pain, coronary artery disease and peripheral vascular disease who presents with his daughter with a chief complaint of concern for dehydration and poor nutrition. The daughter provides the majority of the history and states that he has had fairly significant weight loss over the last 2 weeks, not eating and drinking as much as she feels he needs to. He is a former alcoholic. Still smokes a significant amount. He was unable to get into his primary care physician today and they recommended that he come to the emergency room for evaluation. Patient endorses dizziness with position change. He feels lightheaded and near syncopal when he gets up and moves around. His dizziness has been going on for "months". He has fairly significant cervical spine disease according to his daughter and is awaiting surgery for this. He gets nauseous when he starts to eat. Daughter reports that he has had both fair ly recent EGD and colonoscopy which were unremarkable. He denies any chest pain or shortness of breath. No discrete abdominal pain. No diarrhea, black or bloody stool. No urinary complaints. No swelling in his legs. Daughter is concerned that he might have a urinary tract infection however he has no complaints of urgency frequency hesitancy. In discussion with the patient he really has no complaints whatsoever currently other than dizziness when he gets up and moves around. Patient has a follow-up appointment with his primary care provider next week. Timing/Duration: Other (chronic, worsening) Modifying Factors: improves with Movement (Movement makes his dizziness worse) Associated Systoms: Loss of Appetite, Malaise, Nausea/Vomiting (Nausea without vomiting) Allergies and Home Medications Allergies Coded Allergies: morphine (Unverified Allergy, Mild, Itching, 03/07/22) Uncoded Allergies: codine (Allergy, Mild, Itching, 11/07/21) Patient Home Medication List Home Medication List Reviewed: Yes Albuterol Sulfate (Ventolin Hfa) Unknown Strength Hfa.aer.ad, Unknown Dose, (Reported) Entered as Reported by: GREGORY ESQUIVEL on 03/07/22 1138 Amlodipine Besylate (Amlodipine Besylate) 5 Mg Tablet, 5 MG PO DAILY, (Reported) Entered as Reported by: GREGORY ESQUIVEL on 03/07/22 1138 Aspirin (Aspirin) 81 Mg Tab.chew, 81 MG PO DAILY, (Reported) Entered as Reported by: GREGORY ESQUIVEL on 03/07/22 1138 Atorvastatin Calcium (Atorvastatin Calcium) 40 Mg Tablet, 40 MG PO DAILY, (Reported) Entered as Reported by: JOAO BAEZA on 03/12/22 1019 Budesonide/Formoterol Fumarate (Symbicort 160-4.5 Mcg Inhaler) 160 Mcg-4.5 Mcg/Actuation Hfa.aer.ad, 2 PUFF IH BID, (Reported) Entered as Reported by: GREGORY ESQUIVEL on 03/07/22 1138 Cetirizine HCl (Cetirizine HCl) 10 Mg Tablet, 10 MG PO DAILY, (Reported) Entered as Reported by: JOAO BAEZA on 03/12/22 1019 Fluoxetine HCl (Fluoxetine HCl) 10 Mg Capsule, 10 MG PO DAILY, (Reported) Entered as Reported by: JOAO BAEZA on 03/12/22 1019 Lisinopril (Lisinopril) 40 Mg Tablet, 40 MG PO DAILY, (Reported) Entered as Reported by: GREGORY ESQUIVEL on 03/07/22 1138 Meclizine HCl (Meclizine HCl) 25 Mg Tablet, 25 MG PO Q6H PRN for DIZZINESS Prescribed by: COLE NEWTON on 05/23/222051 Melatonin/Pyridoxine (Melatonin 5 mg Tablet) 5 Mg-1 Mg Tablet, 1 EACH PO DAILY, (Reported) Entered as Reported by: JOAO BAEZA on 03/12/22 1019 Montelukast Sodium (Montelukast Sodium) 10 Mg Tablet, 10 MG PO DAILY, (Reported) Entered as Reported by: JOAO BAEZA on 03/12/22 1019 Ondansetron (Ondansetron Odt) 4 Mg Tab.rapdis, 4 MG SL Q8H PRN for NAUSEA/VOMITING Prescribed by: COLE NEWTON on 05/23/222051 Tamsulosin HCl (Flomax) 0.4 Mg Cap, 0.4 MG PO DAILY, (Reported) Entered as Reported by: JOAO BAEZA on 03/12/22 1019 Review of Systems Review of Systems Constitutional: see HPI EENTM: no symptoms reported Respiratory: no symptoms reported Cardiovascular: no symptoms reported Gastrointestinal: loss of appetite, nausea, other (Weight loss) Genitourinary: no symptoms reported Musculoskeletal: back pain (Chronic neck and back pain) Skin: no symptoms reported Psychiatric/Neurological: Other (Dizziness with position to) All Other Systems Reviewed Negative Unless Noted: Yes Past Lnoqvcp-Wjyczg-Soinxa Hx Immunizations Up To Date First/Initial COVID19 Vaccinat: no Second COVID19 Vaccination Sriram: no Third COVID19 Vaccination Date: no Seasonal Allergies Seasonal Allergies: No Past Medical History Surgery/Hospitalization HX: femoral bypass, meniscus, hernia repair, HTN Surgeries: Yes (HERNIA REPAIR W/MESH, 3 FEMORAL ARTERY BYPASS LAST ONE 2016) Respiratory: Yes COPD Cardiac: Yes (CAROTID <50%, BILATERAL CAROTID STENOSIS) Coronary Artery Disease, High Cholesterol, Hypertension Neurological: Yes Stroke, TIA Genitourinary: Yes ( 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)) Kidney Stones Gastrointestinal: Yes (HERNIA) Gastroesophageal Reflux Musculoskeletal: Yes Degenerate Disk Disease, Arthritis Endocrine: Yes (TYPE ii JUST RECENTLY DIAGNOSED WILL SEE PCP FOR MEDICATION) HEENT: Yes Hearing Impairment: Hard of Hearing 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 oz. kg; 20.00 BMI Method: General Appearance: No Apparent Distress, Thin Eyes: Bilateral Eye Normal Inspection, Bilateral Eye PERRL, Bilateral Eye EOMI HEENT: PERRL/EOMI, Pharynx Normal (Appears adequately hydrated) Neck: Normal Inspection, Supple Respiratory: Lungs Clear, Normal Breath Sounds, No Accessory Muscle Use, No Respiratory Distress Cardiovascular: Regular Rate, Rhythm, Normal Peripheral Pulses (2+ radial pulses bilaterally) Gastrointestinal: Non Tender, Soft Extremity: Normal Capillary Refill, Normal Inspection, Normal Range of Motion, Non Tender, No Pedal Edema, Other (Mild calf tenderness bilaterally without swelling or palpable cords) Neurologic/Psychiatric: Alert, Oriented x3, No Motor/Sensory Deficits, Normal Mood/Affect, tie cutter II-XII Norm as Tested, Other (Patient does look to his daughter for answers to questions) Skin: Normal Color, Warm/Dry Progress/Results/Core Measures Suspected Sepsis SIRS Temperature: Pulse: 88 Respiratory Rate: 18 Laboratory Tests 05/23/22 19:15: White Blood Count 7.9 Blood Pressure 126 /82 Mean: 97 Laboratory Tests 05/23/22 19:15: Creatinine 0.86, Platelet Count 198 Results/Orders Lab Results Laboratory Tests Test 05/23/22 19:15 Range/Units White Blood Count 7.9 4.3-11.0 10^3/uL Red Blood Count 4.54 4.30-5.52 10^6/uL Hemoglobin 14.9 13.3-17.7 g/dL Hematocrit 42 40-54 % Mean Corpuscular Volume 93 80-99 fL Mean Corpuscular Hemoglobin 33 25-34 pg Mean Corpuscular Hemoglobin Concent 35 32-36 g/dL Red Cell Distribution Width 12.7 10.0-14.5 % Platelet Count 198 130-400 10^3/uL Mean Platelet Volume 10.5 9.0-12.2 fL Immature Granulocyte % (Auto) 0 % Neutrophils (%) (Auto) 73 42-75 % Lymphocytes (%) (Auto) 19 12-44 % Monocytes (%) (Auto) 7 0-12 % Eosinophils (%) (Auto) 1 0-10 % Basophils (%) (Auto) 1 0-10 % Neutrophils # (Auto) 5.7 1.8-7.8 10^3/uL Lymphocytes # (Auto) 1.5 1.0-4.0 10^3/uL Monocytes # (Auto) 0.5 0.0-1.0 10^3/uL Eosinophils # (Auto) 0.1 0.0-0.3 10^3/uL Basophils # (Auto) 0.0 0.0-0.1 10^3/uL Immature Granulocyte # (Auto) 0.0 0.0-0.1 10^3/uL Sodium Level 141 135-145 MMOL/L Potassium Level 3.8 3.6-5.0 MMOL/L Chloride Level 105 98-107 MMOL/L Carbon Dioxide Level 24 21-32 MMOL/L Anion Gap 12 5-14 MMOL/L Blood Urea Nitrogen 20 H 7-18 MG/DL Creatinine 0.86 0.60-1.30 MG/DL Estimat Glomerular Filtration Rate 94 BUN/Creatinine Ratio 23 Glucose Level 126 H 70-105 MG/DL Calcium Level 10.2 H 8.5-10.1 MG/DL My Orders Orders - COLE NEWTON MD Ed Iv/Invasive Line Start (05/23/22 19:34) Cbc With Automated Diff (05/23/22 19:34) Basic Metabolic Panel (05/23/22 19:34) Vital Signs/I&O 05/23/22 19:07 Temp 35.3 Pulse 88 Resp 18 B/P (MAP) 126/82 (97) Capillary Refill : Less Than 3 Seconds 2 Blood Pressure Mean: 97 Progress Note : Time: 20:40 Progress Note Patient seen and evaluated by me. Evaluation today includes physical exam, CBC, basic metabolic panel. Physical exam pertinent for thin appearing elderly male in no acute distress. HEENT exam is generally unremarkable, moist mucous membranes. Heart is regular, lungs are clear albeit diminished at the bases. Abdomen is soft. Moves all extremities equally. Skin turgor is good, prominent veins indicating adequate hydration. He does appear to have some memory issues as he looks at his daughter frequently for answers to questions. He is pleasant and affable in no acute distress. Differential diagnosis based on history and physical, metabolic derangement, hypokalemia, hyponatremia secondary to poor nutrition. Dehydration. Labs independently reviewed by me, CBC is normal, basic metabolic panel is normal. Consideration for urinalysis however history and physical do not support the need. Consideration for chest x-ray however history and physical do not support the need. Low suspicion for sepsis picture as the patient is afebrile, not tachycardic, not hypotensive. No focal neurologic deficits to suggest any type of cerebrovascular accident or TIA. I do not feel at this time that the patient needs fluid resuscitation because clinically he looks well- hydrated and his labs reflect this. Reassurance provided to the patient and his daughter. Recommend keeping his follow-up appointment with his primary care provider next week. Return precautions given. They verbalized understanding. All questions are sought and answered. Patient is stable for discharge. Departure Impression Primary Impression: chronic dizziness Additional Impression: Poor appetite Disposition: HOME, SELF-CARE Condition: Stable Departure-Patient Inst. Decision time for Depature: 20:49 Referrals: [facility] (PCP) Primary Care Physician DARRELL STRATTON APRN (Family) Primary Care Physician Patient Instructions: Dealing With Poor Appetite From the Drugs You Take Add. Discharge Instructions: Smaller meals frequently throughout the day. Try and only drink fluids when you eat so you are not getting full on liquids during the day. Follow up with your primary care doctor. Meclizine 25mg every 6 hours as needed for dizziness. Zofran (ondansetron) every 8 hours as needed for nausea. Return to the Emergency Department for any new, emergent or concerning symptoms. Scripts Ondansetron (Ondansetron Odt) 4 Mg Tab.rapdis 4 MG SL Q8H PRN for NAUSEA/VOMITING, #20 TAB Prov: COLE NEWTON MD 05/23/22 Meclizine HCl (Meclizine HCl) 25 Mg Tablet 25 MG PO Q6H PRN for DIZZINESS, #30 TAB Prov: COLE NEWTON MD 05/23/22 Copy Copies To 1: BRIDGET LEONARDO KATHRYN M MD May 23, 2022 19:34
[2022-05-23 19:39] LABS: BASOPHILS % (AUTO) 1 % (0-10); EOSINOPHILS # (AUTO) 0.1 10^3/uL (0.0-0.3); EOSINOPHILS % (AUTO) 1 % (0-10); HEMATOCRIT 42 % (40-54); HEMOGLOBIN 14.9 g/dL (13.3-17.7); LYMPHOCYTES # (AUTO) 1.5 10^3/uL (1.0-4.0); LYMPHOCYTES % (AUTO) 19 % (12-44); MEAN CORPUSCULAR HEMOGLOBIN 33 pg (25-34); MEAN CORPUSCULAR HGB CONC 35 g/dL (32-36); MEAN CORPUSCULAR VOLUME 93 fL (80-99); MEAN PLATELET VOLUME 10.5 fL (9.0-12.2); MONOCYTES # (AUTO) 0.5 10^3/uL (0.0-1.0); MONOCYTES % (AUTO) 7 % (0-12); NEUTROPHILS # (AUTO) 5.7 10^3/uL (1.8-7.8); NEUTROPHILS % (AUTO) 73 % (42-75); PLATELET COUNT 198 10^3/uL (130-400); WHITE BLOOD COUNT 7.9 10^3/uL (4.3-11.0)
[2022-05-23 19:46] LABS: CALCIUM 10.2 MG/DL (8.5-10.1)
[2022-05-23 19:50] LABS: CREATININE SERUM 0.86 MG/DL (0.60-1.30)
[2022-05-23 20:16] LABS: POTASSIUM 3.8 MMOL/L (3.6-5.0)
[2022-05-23] MEDS ORDERED: MECL-149 PO (20:52)
[2022-05-23] MEDS ORDERED: ONDA4TAB11 SL (20:52)
== END 2022-05-23 21:15 | disposition home or self-care (01) ==
LOC: EDUNIT# 19:00 → ER 19:03
DX: R42 Dizziness and giddiness (principal); R63.0 Anorexia; R11.0 Nausea; R63.4 Abnormal weight loss; Z28.310 Unvaccinated for COVID-19
CPT/HCPCS: 36415; 80048; 85025

== ENCOUNTER 2022-05-30 10:46 | Emergency (ER) | payer MEDICARE ==
[~2022-05-30 10:46] MED LIST changes: +MECL-149 PO; +ONDA4TAB11 SL
--- NOTE | 2022-05-30 11:25 | ED GU-Male ---
General Chief Complaint: - Reproductive Stated Complaint: CANNOT URINATE Nursing Triage Note: PT AMB TO [facility] 6 WITH C/O NOT BEING ABLE TO FULLY EMPTY BLADDER FOR ABOUT 2 WEEKS. PT STATES HE HAS THE URGE TO URINATE BUT JUST DRIBBLES. PT SEES UROLOGIST AT Source: patient, family Exam Limitations: no limitations History of Present Illness Date Seen by Provider: May 30, 2022 Time Seen by Provider: 11:00 Initial Comments 66-year-old male presents the ED with daughter for concerns of trouble emptying his bladder for 2 weeks. He reports that he has been dribbling. Reports urgency, states he begins dribbling if he does not get to the bathroom in time. Denies frequency and dysuria. Reports feeling like he is unable to empty his bladder completely. States that his last urologist told him he had mildly enlarged prostate in December 2021. He currently sees Dr. Sue, urology, at . He reports that he has been drinking a lot of water. Patient seems to have some trouble with memory. He was seen 1 week ago, and he did not mention these symptoms to the provider. When questioning patient about this, he states that the symptoms started after he was here. Daughter states that he just told her about it 2 days ago. 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 Daughter reports that he had a normal renal scan in April. He denies fevers, chest pain, shortness of breath, abdominal pain, nausea, vomiting, flank pain. Past medical history includes coronary artery disease, peripheral vascular disease, HDL, HTN, DM type II, COPD. Allergies and Home Medications Allergies Coded Allergies: morphine (Unverified Allergy, Mild, Itching, 03/07/22) Uncoded Allergies: codine (Allergy, Mild, Itching, 11/07/21) Patient Home Medication List Home Medication List Reviewed: Yes Albuterol Sulfate (Ventolin Hfa) Unknown Strength Hfa.aer.ad, Unknown Dose, (Reported) Entered as Reported by: GREGORY ESQUIVEL on 03/07/22 1138 Amlodipine Besylate (Amlodipine Besylate) 5 Mg Tablet, 5 MG PO DAILY, (Reported) Entered as Reported by: GREGORY ESQUIVEL on 03/07/22 1138 Aspirin (Aspirin) 81 Mg Tab.chew, 81 MG PO DAILY, (Reported) Entered as Reported by: GREGORY ESQUIVEL on 03/07/22 1138 Atorvastatin Calcium (Atorvastatin Calcium) 40 Mg Tablet, 40 MG PO DAILY, (Reported) Entered as Reported by: JOAO BAEZA on 03/12/22 1019 Budesonide/Formoterol Fumarate (Symbicort 160-4.5 Mcg Inhaler) 160 Mcg-4.5 Mcg/Actuation Hfa.aer.ad, 2 PUFF IH BID, (Reported) Entered as Reported by: GREGORY ESQUIVEL on 03/07/22 1138 Cefuroxime Axetil (Cefuroxime) 500 Mg Tablet, 500 MG PO BID Prescribed by: Romina Velazquez on 05/30/22 1301 Cetirizine HCl (Cetirizine HCl) 10 Mg Tablet, 10 MG PO DAILY, (Reported) Entered as Reported by: JOAO BAEZA on 03/12/22 1019 Fluoxetine HCl (Fluoxetine HCl) 10 Mg Capsule, 10 MG PO DAILY, (Reported) Entered as Reported by: JOAO BAEZA on 03/12/22 1019 Lisinopril (Lisinopril) 40 Mg Tablet, 40 MG PO DAILY, (Reported) Entered as Reported by: GREGORY ESQUIVEL on 03/07/22 1138 Meclizine HCl (Meclizine HCl) 25 Mg Tablet, 25 MG PO Q6H PRN for DIZZINESS Prescribed by: COLE NEWTON on 05/23/222051 Melatonin/Pyridoxine (Melatonin 5 mg Tablet) 5 Mg-1 Mg Tablet, 1 EACH PO DAILY, (Reported) Entered as Reported by: JOAO BAEZA on 03/12/22 1019 Montelukast Sodium (Montelukast Sodium) 10 Mg Tablet, 10 MG PO DAILY, (Reported) Entered as Reported by: JOAO BAEZA on 03/12/22 1019 Ondansetron (Ondansetron Odt) 4 Mg Tab.rapdis, 4 MG SL Q8H PRN for NAUSEA/VOMITING Prescribed by: COLE NEWTON on 05/23/222051 Tamsulosin HCl (Flomax) 0.4 Mg Cap, 0.4 MG PO DAILY, (Reported) Entered as Reported by: JOAO BAEZA on 03/12/22 1019 Review of Systems Review of Systems Constitutional: see HPI Past Gaycbdk-Xrllbo-Vztsmz Hx Patient Social History Tobacco Use?: Yes Tobacco type used: Cigarettes Substance use?: Yes Substance type: Marijuana Alcohol Use?: No Pt feels they are or have been: No Immunizations Up To Date Influenza Vaccine Up-to-Date: No; Not Current First/Initial COVID19 Vaccinat: no Second COVID19 Vaccination Sriram: no Third COVID19 Vaccination Date: no Seasonal Allergies Seasonal Allergies: No Past Medical History Surgery/Hospitalization HX: femoral bypass, meniscus, hernia repair, HTN, RENAL STENT, GERD, DM, HLD, COPD Surgeries: Yes (HERNIA REPAIR W/MESH, 3 FEMORAL ARTERY BYPASS LAST ONE 2016) Respiratory: Yes COPD Cardiac: Yes (CAROTID <50%, BILATERAL CAROTID STENOSIS) Coronary Artery Disease, High Cholesterol, Hypertension Neurological: Yes Stroke, TIA Genitourinary: Yes ( 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)) Kidney Stones Gastrointestinal: Yes (HERNIA) Gastroesophageal Reflux Musculoskeletal: Yes Degenerate Disk Disease, Arthritis Endocrine: Yes (TYPE ii JUST RECENTLY DIAGNOSED WILL SEE PCP FOR MEDICATION) HEENT: Yes Hearing Impairment: Hard of Hearing 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 oz. kg; 20.00 BMI Method: General Appearance: WD/WN, no apparent distress Neck: supple, normal inspection Cardiovascular: regular rate, rhythm, no edema, no gallop, no JVD Respiratory: lungs clear, normal breath sounds, no respiratory distress, no accessory muscle use Extremities: normal range of motion, normal inspection Neurologic/Psychiatric: alert, normal mood/affect Skin: normal color, warm/dry Progress/Results/Core Measures Suspected Sepsis SIRS Temperature: Pulse: 83 Respiratory Rate: 20 Laboratory Tests 05/30/22 11:49: White Blood Count 5.7 Blood Pressure 128 /78 Mean: 95 Laboratory Tests 05/30/22 11:49: Creatinine 0.88, Platelet Count 197 Results/Orders Lab Results Laboratory Tests Test 05/30/22 11:49 05/30/22 12:08 Range/Units White Blood Count 5.7 4.3-11.0 10^3/uL Red Blood Count 4.29 L 4.30-5.52 10^6/uL Hemoglobin 13.7 13.3-17.7 g/dL Hematocrit 40 40-54 % Mean Corpuscular Volume 92 80-99 fL Mean Corpuscular Hemoglobin 32 25-34 pg Mean Corpuscular Hemoglobin Concent 35 32-36 g/dL Red Cell Distribution Width 13.1 10.0-14.5 % Platelet Count 197 130-400 10^3/uL Mean Platelet Volume 10.0 9.0-12.2 fL Immature Granulocyte % (Auto) 0 % Neutrophils (%) (Auto) 78 H 42-75 % Lymphocytes (%) (Auto) 13 12-44 % Monocytes (%) (Auto) 7 0-12 % Eosinophils (%) (Auto) 1 0-10 % Basophils (%) (Auto) 1 0-10 % Neutrophils # (Auto) 4.5 1.8-7.8 10^3/uL Lymphocytes # (Auto) 0.8 L 1.0-4.0 10^3/uL Monocytes # (Auto) 0.4 0.0-1.0 10^3/uL Eosinophils # (Auto) 0.1 0.0-0.3 10^3/uL Basophils # (Auto) 0.0 0.0-0.1 10^3/uL Immature Granulocyte # (Auto) 0.0 0.0-0.1 10^3/uL Sodium Level 141 135-145 MMOL/L Potassium Level 4.2 3.6-5.0 MMOL/L Chloride Level 109 H 98-107 MMOL/L Carbon Dioxide Level 22 21-32 MMOL/L Anion Gap 10 5-14 MMOL/L Blood Urea Nitrogen 23 H 7-18 MG/DL Creatinine 0.88 0.60-1.30 MG/DL Estimat Glomerular Filtration Rate 94 BUN/Creatinine Ratio 26 Glucose Level 177 H 70-105 MG/DL Calcium Level 9.6 8.5-10.1 MG/DL Urine Color YELLOW Urine Clarity CLEAR Urine pH 7.5 5-9 Urine Specific [place] 1.020 1.016-1.022 Urine Protein 1+ H NEGATIVE Urine Glucose (UA) 3+ H NEGATIVE Urine Ketones TRACE H NEGATIVE Urine Nitrite NEGATIVE NEGATIVE Urine Bilirubin NEGATIVE NEGATIVE Urine Urobilinogen 1.0 < = 1.0 MG/DL Urine Leukocyte Esterase TRACE H NEGATIVE Urine RBC (Auto) 3+ H NEGATIVE Urine RBC >100 H /HPF Urine WBC 25-50 H /HPF Urine Squamous Epithelial Cells RARE /HPF Urine Crystals NONE /LPF Urine Bacteria NEGATIVE /HPF Urine Casts NONE /LPF Urine Mucus NEGATIVE /LPF Urine Culture Indicated YES My Orders Orders - ROMINA VELAZQUEZ APRN Ua Culture If Indicated (05/30/22 10:59) Cbc With Automated Diff (05/30/22 11:18) Basic Metabolic Panel (05/30/22 11:18) Urine Culture (05/30/22 12:08) Ceftriaxone (Rocephin) (05/30/22 13:00) Lidocaine 1% Inj 20 Ml (Xylocaine 1% Inj (05/30/22 13:00) Lidocaine 1% Inj 10 Ml (Xylocaine 1% Inj (05/30/22 13:01) Medications Given in ED Current Medications Medications Dose Ordered Sig/Gadiel Route Start Time Stop Time Status Last Admin Dose Admin Ceftriaxone Sodium 1,000 mg ONCE ONCE IM 05/30/22 13:00 05/30/22 13:01 DC 05/30/22 13:06 1,000 MG Lidocaine HCl 10 ml STK-MED ONCE .ROUTE 05/30/22 13:01 05/30/22 13:03 DC 05/30/22 13:09 2.1 ML Vital Signs/I&O 05/30/22 05/30/22 10:58 13:25 Temp 35.0 35.0 Pulse 83 80 Resp 20 20 B/P (MAP) 128/78 (95) 120/68 Capillary Refill : Blood Pressure Mean: 95 Progress Note : Time: 11:26 Progress Note Patient seen and evaluated, resting comfortably, no acute distress. Based on exam and symptoms, differential diagnosis includes but is not limited to, UTI, enlarged prostate, kidney failure. Work-up initiated included CBC, BMP, UA. 1257 Labs reviewed. CBC shows slightly decreased RBC 4.29, slightly elevated neutrophils 78. CMP shows slightly elevated chloride 109, slightly elevated BUN 3, creatinine 0.88, GFR 94. Kidney function similar to previous labs done 1 week ago. Glucose elevated 177. UA shows trace leukocytes, greater than 100 RBCs, 25-50 WBCs. Will treat for urinary tract infection. Considered CT or abdominal x-ray due to elevated RBCs. Patient denies any flank pain, so deferred. Will have patient follow-up with his urologist. Patient's daughter states that he has had blood in his urine in the past due to his kidney issues, but it was clear the last time they checked. Discharge instructions and return precautions provided. Departure Impression Primary Impression: Urinary tract infection Disposition: HOME, SELF-CARE Condition: Stable Departure-Patient Inst. Decision time for Depature: 13:00 Referrals: [facility] (PCP) Primary Care Physician DARRELL STRATTON APRN (Family) Primary Care Physician Patient Instructions: Urinary Tract Infection, Adult (DC) Add. Discharge Instructions: Complete full course of antibiotic, even if symptoms improve. Follow-up with urology, call them today. Return for inability to urinate, fever, recurrent vomiting, or any other new, concerning, or worsening symptoms. All discharge instructions reviewed with patient and/or family. Voiced understanding. Scripts Cefuroxime Axetil (Cefuroxime) 500 Mg Tablet 500 MG PO BID for 14 Days, #20 TAB 0 Refills Prov: ROMINA VELAZQUEZ APRN 05/30/22 ROMINA VELAZQUEZ APRN May 30, 2022 11:25
[2022-05-30 11:56] LABS: BASOPHILS % (AUTO) 1 % (0-10); EOSINOPHILS # (AUTO) 0.1 10^3/uL (0.0-0.3); EOSINOPHILS % (AUTO) 1 % (0-10); HEMATOCRIT 40 % (40-54); HEMOGLOBIN 13.7 g/dL (13.3-17.7); LYMPHOCYTES # (AUTO) 0.8 10^3/uL (1.0-4.0); LYMPHOCYTES % (AUTO) 13 % (12-44); MEAN CORPUSCULAR HEMOGLOBIN 32 pg (25-34); MEAN CORPUSCULAR HGB CONC 35 g/dL (32-36); MEAN CORPUSCULAR VOLUME 92 fL (80-99); MONOCYTES # (AUTO) 0.4 10^3/uL (0.0-1.0); MONOCYTES % (AUTO) 7 % (0-12); NEUTROPHILS # (AUTO) 4.5 10^3/uL (1.8-7.8); NEUTROPHILS % (AUTO) 78 % (42-75); PLATELET COUNT 197 10^3/uL (130-400); WHITE BLOOD COUNT 5.7 10^3/uL (4.3-11.0)
[2022-05-30 12:09] LABS: POTASSIUM 4.2 MMOL/L (3.6-5.0)
[2022-05-30 12:10] LABS: CALCIUM 9.6 MG/DL (8.5-10.1)
[2022-05-30 12:15] LABS: CREATININE SERUM 0.88 MG/DL (0.60-1.30)
[2022-05-30 12:17] LABS: BILIRUBIN,URINE NEGATIVE (NEGATIVE); CLARITY,URINE CLEAR; COLOR,URINE YELLOW; GLUCOSE, URINE (UA) 3+ (NEGATIVE); KETONES,URINE TRACE (NEGATIVE); LEUKOCYTE ESTERASE ,URINE TRACE (NEGATIVE); NITRITE,URINE NEGATIVE (NEGATIVE); PH,URINE 7.5 (5-9); PROTEIN,URINE 1+ (NEGATIVE)
[2022-05-30 12:34] LABS: BACTERIA,URINE NEGATIVE /HPF; RBC,URINE >100 /HPF; SQUAMOUS EPITHELIAL CELL,UR RARE /HPF; WBC,URINE 25-50 /HPF
[2022-05-30] MEDS ORDERED: cefTRIAXone 1,000 MG VIAL IM ONE (13:00)
[2022-05-30] MEDS ORDERED: LIDOCAINE 1% INJ 20 ML VIAL INJ ONE (13:00)
[2022-05-30] MEDS ORDERED: LIDOCAINE 1% INJ 10 ML VIAL ONE (13:01)
[2022-05-30] MEDS ORDERED: CEFU500T63 PO (13:01)
[2022-05-30 13:25] VITALS: BP 120/68
== END 2022-05-30 13:29 | disposition home or self-care (01) ==
LOC: EDUNIT# 10:46 → ER 10:48
DX: N39.0 Urinary tract infection, site not specified (principal); E87.8 Other disorders of electrolyte and fluid balance, not elsewhere classified; R71.8 Other abnormality of red blood cells; R79.89 Other specified abnormal findings of blood chemistry; F17.210 Nicotine dependence, cigarettes, uncomplicated; Z28.310 Unvaccinated for COVID-19
CPT/HCPCS: 36415; 80048; 81000; 85025; 87088; 99284

== ENCOUNTER 2022-06-10 17:33 | Emergency (ER) | payer MEDICARE ==
[~2022-06-10 17:33] MED LIST changes: +CEFU500T63 PO
[2022-06-10] MEDS ORDERED: ORPHENADRINE 60 MG/2 ML (NORFLEX) AMP (ED ONLY) IM ONE (18:45)
[2022-06-10] MEDS ORDERED: HYDROcodone/APAP 5 MG/325 MG (LORTAB) TAB PO ONE (18:45)
[2022-06-10] MEDS ORDERED: KETOROLAC 30 MG/ML VIAL IM ONE (18:45)
--- NOTE | 2022-06-10 18:48 | ED Neck-Back Pain/Injury ---
General Chief Complaint: Head/Cervical Problems Stated Complaint: NECK PAIN Nursing Triage Note: PT AMB TO RM 7 WITH CC OF NECK PAIN SINCE TODAY. PT STATES HAS HX OF STNOSIS. PT SCHEDULED FOR SX NEXT FRIDAY. PT DENIES INJURY. Source of Information: Patient Exam Limitations: No Limitations (LORENA PATHAK) History of Present Illness Date Seen by Provider: Jun 10, 2022 Time Seen by Provider: 18:44 Initial Comments Patient is a 66-year-old male with a history of cervical spinal stenosis who presents to ED with neck pain. This started few hours ago. Patient Was leaving his Cardilogist appointment from Dr. Gonzalez to get clear for a neck fusion next week at [facility]. Patient has surgery scheduled by Dr. Davila neurosurgeon for a fusion of his cervical spine next week. History of chronic n lina pain. Typically can keep his head still during episodes of pain which improved except today he started having spasming in the neck with a sharp shooting pain down the right arm. He states that he is starting develop numbness and tingling to his hand secondary to a cervical stenosis. He is able to use the right and left hand. Denies of any fever, chest pain, shortness of breath, cough, headache, dizziness, visual changes. Patient denies taking thing for pain. Typically takes Tylenol as needed. Patient had a cervical MRI performed January of last year that showed multilevel degenerative disc disease (LORENA PATHAK) Allergies and Home Medications Allergies Coded Allergies: morphine (Unverified Allergy, Mild, Itching, 03/07/22) Uncoded Allergies: codine (Allergy, Mild, Itching, 11/07/21) Patient Home Medication List Home Medication List Reviewed: Yes (LORENA PATHAK) Albuterol Sulfate (Ventolin Hfa) Unknown Strength Hfa.aer.ad, Unknown Dose, (Rep orted) Entered as Reported by: GREGORY ESQUIVEL on 03/07/22 1138 Amlodipine Besylate (Amlodipine Besylate) 5 Mg Tablet, 5 MG PO DAILY, (Reported) Entered as Reported by: GREGORY ESQUIVEL on 03/07/22 1138 Aspirin (Aspirin) 81 Mg Tab.chew, 81 MG PO DAILY, (Reported) Entered as Reported by: GREGORY ESQUIVEL on 03/07/22 1138 Atorvastatin Calcium (Atorvastatin Calcium) 40 Mg Tablet, 40 MG PO DAILY, (Reported) Entered as Reported by: JOAO BAEZA on 03/12/22 1019 Budesonide/Formoterol Fumarate (Symbicort 160-4.5 Mcg Inhaler) 160 Mcg-4.5 Mcg/Actuation Hfa.aer.ad, 2 PUFF IH BID, (Reported) Entered as Reported by: GREGORY ESQUIVEL on 03/07/22 1138 Cefuroxime Axetil (Cefuroxime) 500 Mg Tablet, 500 MG PO BID Prescribed by: Romina Villafana on 05/30/22 1301 Cetirizine HCl (Cetirizine HCl) 10 Mg Tablet, 10 MG PO DAILY, (Reported) Entered as Reported by: JOAO BAEZA on 03/12/22 1019 Cyclobenzaprine HCl (Cyclobenzaprine HCl) 10 Mg Tablet, 10 MG PO TID Prescribed by: RADHA EID on 06/12/22 1308 Fluoxetine HCl (Fluoxetine HCl) 10 Mg Capsule, 10 MG PO DAILY, (Reported) Entered as Reported by: JOAO BAEZA on 03/12/22 1019 Hydrocodone/Acetaminophen (Hydrocodone-Acetamin 5-325 mg) 5 Mg-325 Mg Tablet, 1 TAB PO Q4H PRN for PAIN-MODERATE (5-7) Prescribed by: RADHA EID on 06/12/22 1309 Lisinopril (Lisinopril) 40 Mg Tablet, 40 MG PO DAILY, (Reported) Entered as Reported by: GREGORY ESQUIVEL on 03/07/22 1138 Meclizine HCl (Meclizine HCl) 25 Mg Tablet, 25 MG PO Q6H PRN for DIZZINESS Prescribed by: COLE NEWTON on 05/23/222051 Melatonin/Pyridoxine (Melatonin 5 mg Tablet) 5 Mg-1 Mg Tablet, 1 EACH PO DAILY, (Reported) Entered as Reported by: JOAO BAEZA on 03/12/22 1019 Montelukast Sodium (Montelukast Sodium) 10 Mg Tablet, 10 MG PO DAILY, (Reported) Entered as Reported by: JOAO BAEZA on 03/12/22 1019 Ondansetron (Ondansetron Odt) 4 Mg Tab.rapdis, 4 MG SL Q8H PRN for NAUSEA/VOMITING Prescribed by: COLE NEWTON on 05/23/222051 Tamsulosin HCl (Flomax) 0.4 Mg Cap, 0.4 MG PO DAILY, (Reported) Entered as Reported by: JOAO BAEZA on 03/12/22 1019 Review of Systems Constitutional: No chills, No diaphoresis, No malaise, No weakness EENTM: No ear pain, No blurred vision, No double vision Respiratory: No cough, No dyspnea on exertion Cardiovascular: No chest pain Gastrointestinal: No abdominal pain, No diarrhea, No nausea, No vomiting Musculoskeletal: No back pain; joint pain; No joint swelling; muscle pain, muscle stiffness Skin: No change in color, No change in hair/nails (LORENA PATHAK) Past Ovqtumc-Ovpfsa-Xmkiie Hx Patient Social History Tobacco Use?: Yes Tobacco type used: Cigarettes Substance use?: Yes Substance type: Marijuana Substance frequency: Daily Alcohol Use?: No Pt feels they are or have been: No (LORENA PATHAK) Immunizations Up To Date First/Initial COVID19 Vaccinat: no Second COVID19 Vaccination Sriram: no Third COVID19 Vaccination Date: no (LORENA PATHAK) Seasonal Allergies Seasonal Allergies: No (LORENA PATHAK) Past Medical History Surgery/Hospitalization HX: femoral bypass, meniscus, hernia repair, HTN, RENAL STENT, GERD, DM, HLD, COPD Surgeries: Yes (HERNIA REPAIR W/MESH, 3 FEMORAL ARTERY BYPASS LAST ONE 2016) Respiratory: Yes COPD Cardiac: Yes (CAROTID <50%, BILATERAL CAROTID STENOSIS) Coronary Artery Disease, High Cholesterol, Hypertension Neurological: Yes Stroke, TIA Genitourinary: Yes ( 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)) Kidney Stones Gastrointestinal: Yes (HERNIA) Gastroesophageal Reflux Musculoskeletal: Yes Degenerate Disk Disease, Arthritis Endocrine: Yes (TYPE ii JUST RECENTLY DIAGNOSED WILL SEE PCP FOR MEDICATION) HEENT: Yes Hearing Impairment: Hard of Hearing 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 oz. kg; 20.00 BMI Method: General Appearance: No Apparent Distress, WD/WN HEENT: PERRL/EOMI, TMs Normal, Normal ENT Inspection, Pharynx Normal Neck: Full Range of Motion, Normal Inspection, Non Tender, Supple, Other (Neg ative Spurling sign. 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 Afebrile. No meningeal signs. Patient playing on his phone without any difficulties. 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 Negative Spurling sign. Muscular tension versus chronic cervical neck pain. MRI cervical spine performed January 2022 showed multilevel degenerative disc disease. Spinal stenosis. Scheduled for a fusion at [facility] Dr. Davila next week. Patient received IM Toradol, Norflex and a dose of [place]. Improvement of pain. Patient without any focal neural deficits. Denies chest pain or shortness of breath. Return precaution were discussed such as worsening pain. No emergent intervention without any acute neurological red flag findings. (LORENA PATHAK) Impression Primary Impression: Neck pain Disposition: 01 HOME, SELF-CARE Condition: Stable Departure-Patient Inst. Decision time for Depature: 18:48 (LORENA PATHAK) Referrals: [facility] (PCP) Primary Care Physician DARRELL STRATTON APRN (Family) Primary Care Physician Patient Instructions: Neck Pain ED ATTENDING PHYSICIAN NOTE: I WAS PHYSICALLY PRESENT ER PHYSICIAN, BUT I WAS NOT INVOLVED IN ANY DECISION MAKING OR ANY CARE OF THIS PATIENT AND I AM NOT COLLABORATING PHYSICIAN. (JUSTIN DOWNS DO) LORENA PATHAK Jun 10, 2022 18:48 JUSTIN DOWNS DO Jun 13, 2022 01:39
[2022-06-10 19:33] VITALS: BP 150/89
== END 2022-06-10 19:34 | disposition home or self-care (01) ==
LOC: EDUNIT# 17:33 → ER 17:35
DX: M48.02 Spinal stenosis, cervical region (principal); F17.210 Nicotine dependence, cigarettes, uncomplicated; Z88.5 Allergy status to narcotic agent; Z28.310 Unvaccinated for COVID-19
CPT/HCPCS: 99284

== ENCOUNTER 2022-06-12 12:38 | Emergency (ER) | payer MEDICARE ==
[~2022-06-12] VITALS: Ht 177.8 cm; Wt 62.5 kg
--- NOTE | 2022-06-12 13:07 | ED Neck-Back Pain/Injury ---
General Chief Complaint: Head/Cervical Problems Stated Complaint: NECK PAIN Source of Information: Patient Exam Limitations: No Limitations History of Present Illness Date Seen by Provider: Jun 12, 2022 Time Seen by Provider: 13:02 Initial Comments Patient is a 66-year-old male who presents ED with right-sided neck pain. Patient has a history of degenerative disc disease in his neck. He reports numbness and tingling bilateral hands which she states is been getting worse over the past few months. He scheduled follow-up with Dr. Davila neurosurgeon at [facility] this next Friday for effusion. Patient states they did not tell him that this neck pain would likely get worse. Patient denies any fall. Patient was seen here Friday improvement after injection of pain medication. States pain started last night difficulty sleeping secondary to the pain of the right side of the neck. Shooting pain down into the right arm. Denies chest pain, cough, shortness of breath, vomiting, diarrhea, fever, chills. Some pain with right-sided head movement. Denies taking thing for pain at home. Has a scheduled follow-up with his primary care physician tomorrow Allergies and Home Medications Allergies Coded Allergies: morphine (Unverified Allergy, Mild, Itching, 03/07/22) Uncoded Allergies: codine (Allergy, Mild, Itching, 11/07/21) Patient Home Medication List Home Medication List Reviewed: Yes Albuterol Sulfate (Ventolin Hfa) Unknown Strength Hfa.aer.ad, Unknown Dose, (Reported) Entered as Reported by: GREGORY ESQUIVEL on 03/07/22 1138 Amlodipine Besylate (Amlodipine Besylate) 5 Mg Tablet, 5 MG PO DAILY, (Reported) Entered as Reported by: GREGORY ESQUIVEL on 03/07/22 1138 Aspirin (Aspirin) 81 Mg Tab.chew, 81 MG PO DAILY, (Reported) Entered as Reported by: GREGORY ESQUIVEL on 03/07/22 1138 Atorvastatin Calcium (Atorvastatin Calcium) 40 Mg Tablet, 40 MG PO DAILY, (Re ported) Entered as Reported by: JOAO BAEZA on 03/12/22 1019 Budesonide/Formoterol Fumarate (Symbicort 160-4.5 Mcg Inhaler) 160 Mcg-4.5 Mcg/Actuation Hfa.aer.ad, 2 PUFF IH BID, (Reported) Entered as Reported by: GREGORY ESQUIVEL on 03/07/22 1138 Cefuroxime Axetil (Cefuroxime) 500 Mg Tablet, 500 MG PO BID Prescribed by: Romina Villafana on 05/30/22 1301 Cetirizine HCl (Cetirizine HCl) 10 Mg Tablet, 10 MG PO DAILY, (Reported) Entered as Reported by: JOAO BAEZA on 03/12/22 1019 Cyclobenzaprine HCl (Cyclobenzaprine HCl) 10 Mg Tablet, 10 MG PO TID Prescribed by: RADHA EID on 06/12/22 1308 Fluoxetine HCl (Fluoxetine HCl) 10 Mg Capsule, 10 MG PO DAILY, (Reported) Entered as Reported by: JOAO BAEZA on 03/12/22 1019 Hydrocodone/Acetaminophen (Hydrocodone-Acetamin 5-325 mg) 5 Mg-325 Mg Tablet, 1 TAB PO Q4H PRN for PAIN-MODERATE (5-7) Prescribed by: RADHA EID on 06/12/22 1309 Lisinopril (Lisinopril) 40 Mg Tablet, 40 MG PO DAILY, (Reported) Entered as Reported by: GREGORY ESQUIVEL on 03/07/22 1138 Meclizine HCl (Meclizine HCl) 25 Mg Tablet, 25 MG PO Q6H PRN for DIZZINESS Prescribed by: COLE NEWTON on 05/23/222051 Melatonin/Pyridoxine (Melatonin 5 mg Tablet) 5 Mg-1 Mg Tablet, 1 EACH PO DAILY, (Reported) Entered as Reported by: JOAO BAEZA on 03/12/22 1019 Montelukast Sodium (Montelukast Sodium) 10 Mg Tablet, 10 MG PO DAILY, (Reported) Entered as Reported by: JOAO BAEZA on 03/12/22 1019 Ondansetron (Ondansetron Odt) 4 Mg Tab.rapdis, 4 MG SL Q8H PRN for NAUSEA/VOMITING Prescribed by: COLE NEWTON on 05/23/222051 Tamsulosin HCl (Flomax) 0.4 Mg Cap, 0.4 MG PO DAILY, (Reported) Entered as Reported by: JOAO BAEZA on 03/12/22 1019 Review of Systems Constitutional: No chills, No diaphoresis, No malaise, No weakness EENTM: No ear pain, No double vision, No vision loss, No mouth pain, No mouth swelling, No nose pain, No throat pain Respiratory: No cough, No dyspnea on exertion, No orthopnea, No short of breath Cardiovascular: No chest pain Gastrointestinal: No abdominal pain, No diarrhea, No nausea, No vomiting Genitourinary: No decreased output Musculoskeletal: No back pain; joint pain, muscle pain All Other Systems Reviewed Negative Unless Noted: Yes Past Vvlnsor-Dvpfft-Qsrmqb Hx Patient Social History Tobacco Use?: Yes Tobacco type used: Cigars Substance use?: Yes Substance type: Marijuana Alcohol Use?: No Immunizations Up To Date First/Initial COVID19 Vaccinat: no Second COVID19 Vaccination Sriram: no Third COVID19 Vaccination Date: no Seasonal Allergies Seasonal Allergies: No Past Medical History Surgery/Hospitalization HX: femoral bypass, meniscus, hernia repair, HTN, RENAL STENT, GERD, DM, HLD, COPD Surgeries: Yes (HERNIA REPAIR W/MESH, 3 FEMORAL ARTERY BYPASS LAST ONE 2016) Respiratory: Yes COPD Cardiac: Yes (CAROTID <50%, BILATERAL CAROTID STENOSIS) Coronary Artery Disease, High Cholesterol, Hypertension Neurological: Yes Stroke, TIA Genitourinary: Yes ( 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)) Kidney Stones Gastrointestinal: Yes (HERNIA) Gastroesophageal Reflux Musculoskeletal: Yes Degenerate Disk Disease, Arthritis Endocrine: Yes (TYPE ii JUST RECENTLY DIAGNOSED WILL SEE PCP FOR MEDICATION) HEENT: Yes Hearing Impairment: Hard of Hearing Cancer: Yes (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 oz. kg; 20.00 BMI Method: General Appearance: No Apparent Distress, WD/WN HEENT: PERRL/EOMI, TMs Normal, Normal ENT Inspection, Pharynx Normal Neck: Full Range of Motion, Normal Inspection, Supple, Other (Tenderness to palpate right trapezius muscle. No cervical midline tenderness. Negative Spurling sign) Cardiovascular: Regular Rate, Rhythm, No Edema, No Gallop, No JVD, No Murmur Respiratory: Chest Non Tender, Lungs Clear, Normal Breath Sounds, No Accessory Muscle Use, No Respiratory Distress Gastrointestinal: Normal Bowel Sounds, No Organomegaly, No Pulsatile Mass, Non Tender Back: Normal Inspection, No CVA Tenderness, No Vertebral Tenderness Extremity: Normal Capillary Refill, Normal Inspection, Non Tender, Other (Limited range of motion the right shoulder.) Skin: Normal Color, Warm/Dry Progress/Results/Core Measures Results/Orders My Orders Orders - LORENA PATHAK Orphenadrine Inj (Ed Only) (Norflex Inje (06/12/22 13:15) Ketorolac Injection (Toradol Injection) (06/12/22 13:15) Hydrocodone/Apap 5/325 Tablet (Lortab 5 (06/12/22 13:15) Medications Given in ED Current Medications Medications Dose Ordered Sig/Gadiel Route Start Time Stop Time Status Last Admin Dose Admin Acetaminophen/ Hydrocodone Bitart 1 ea ONCE ONCE PO 06/12/22 13:15 06/12/22 13:16 DC 06/12/22 13:15 1 EA Ketorolac Tromethamine 30 mg ONCE ONCE IM 06/12/22 13:15 06/12/22 13:16 DC 06/12/22 13:15 30 MG Orphenadrine Citrate 60 mg ONCE ONCE IM 06/12/22 13:15 06/12/22 13:16 DC 06/12/22 13:14 60 MG Vital Signs/I&O 06/12/22 12:53 Pulse 70 B/P (MAP) 164/99 (120) Pulse Ox 97 O2 Delivery Room Air Departure Communication (PCP) Patient with a history of degenerative disc disease in his neck. Patient reports numbness and tingling bilateral upper extremities over the past few months that has progressively worsened. Does have appropriate strength on exam. Equal pulses bilateral. Patient currently playing on his phone. denies chest pain or shortness of breath. Tenderness to palpate the right trapezius. Negative Spurling sign. Adequate strength of upper extremities bilateral upper extremity. patient was seen here Friday and received IM Toradol and Norflex with improvement of his pain. Was given a another dose here with hydrocodone with improvement. He scheduled follow-up with Dr. Davila neurosurgeon at [facility] next Friday. Refused any further lab work, imaging at this time. Due to the tenderness on palpation suspect more muscular. MRI 02/22/2022 showed There is multilevel cervical spine degenerative disk disease which is described above. Patient states symptoms improved significantly after shot. He is requesting be discharged. He has a follow-up with primary care physician tomorrow. If any worsening symptoms return back to ED for further evaluation. Impression Primary Impression: Neck pain Disposition: HOME, SELF-CARE Condition: Stable Departure-Patient Inst. Decision time for Depature: 13:04 Referrals: [facility] [place] [place] ([place]P) Primary Care Physician DARRELL STRATTON APRN (Family) Primary Care Physician Patient Instructions: Neck Pain ED Scripts Cyclobenzaprine HCl (Cyclobenzaprine HCl) 10 Mg Tablet 10 MG PO TID, #14 TAB Prov: LORENA PATHAK 06/12/22 Hydrocodone/Acetaminophen (Hydrocodone-Acetamin 5-325 mg) 5 Mg-325 Mg Tablet 1 TAB PO Q4H PRN for PAIN-MODERATE (5-7), #8 TAB Prov: LORENA PATHAK 06/12/22 LORENA PATHAK Jun 12, 2022 13:07
[2022-06-12] MEDS ORDERED: ACHD5005 PO (13:08)
[2022-06-12] MEDS ORDERED: CYCL10TA25 PO (13:08)
[2022-06-12] MEDS ORDERED: KETOROLAC 30 MG/ML VIAL IM ONE (13:15)
[2022-06-12] MEDS ORDERED: ORPHENADRINE 60 MG/2 ML (NORFLEX) AMP (ED ONLY) IM ONE (13:15)
[2022-06-12] MEDS ORDERED: HYDROcodone/APAP 5 MG/325 MG (LORTAB) TAB PO ONE (13:15)
[2022-06-12 13:45] VITALS: BP 158/90
== END 2022-06-12 13:45 | disposition home or self-care (01) ==
LOC: EDUNIT# 12:38 → ER 12:40
DX: M54.2 Cervicalgia (principal); F17.290 Nicotine dependence, other tobacco product, uncomplicated; Z88.6 Allergy status to analgesic agent
CPT/HCPCS: 99284

== ENCOUNTER 2022-07-23 16:39 | Emergency (ER) | payer MEDICARE ==
[~2022-07-23] VITALS: Ht 177 cm; Wt 60.3 kg
[~2022-07-23 16:39] MED LIST changes: +ACHD5005 PO; +CYCL10TA25 PO
[2022-07-23] MEDS ORDERED: NS IV 1000 ML 1,000 ML IV STA (17:20)
[2022-07-23 17:21] LABS: BILIRUBIN,URINE NEGATIVE (NEGATIVE); CLARITY,URINE SL CLOUDY; COLOR,URINE YELLOW; GLUCOSE, URINE (UA) NEGATIVE (NEGATIVE); KETONES,URINE TRACE (NEGATIVE); LEUKOCYTE ESTERASE ,URINE 3+ (NEGATIVE); NITRITE,URINE NEGATIVE (NEGATIVE); PROTEIN,URINE 2+ (NEGATIVE)
--- NOTE | 2022-07-23 17:23 | ED GU-Male ---
General Chief Complaint: - Reproductive Stated Complaint: DIFFICULTY URINATING Nursing Triage Note: PT PRESENTS TO ED WITH COMPLAINTS OF DIFFICULTY WITH URINATION. PT STATES HE HAD A STENT PLACED IN HIS L KIDNEY AND HAD 2 STONES REMOVED 07/04. PT STATES HE STARTED TO DRINKING BEER TO GET HIMSELF TO URINATE WHICH SEEMED TO HELP. PT ALSO REPORTS L FLANK PAIN. Source: patient Exam Limitations: no limitations History of Present Illness Date Seen by Provider: July 23, 2022 Time Seen by Provider: 17:21 Initial Comments Patient is a 66-year-old male with a history of kidney stones who presents ED with difficulty urinating. Symptoms over the past 2 or 3 days. States he has noticed a slight decrease in urination. Reports dribbling of urine. Mild burning with urination. Started drinking alcohol beer which seemed to improve. Has had some mild left flank discomfort but no specific pain at this time. Patient states he had 2 stones removed 07/04 at . Patient had a ureter stent placed. Patient reports history of urinary tract infections since that he had a stent placed back in March. States he did vomit once a few days ago. Denies of any diarrhea, chest pain, abdominal pain, headache, dizziness, fever, chills, body aches. Allergies and Home Medications Allergies Coded Allergies: morphine (Unverified Allergy, Mild, Itching, 03/07/22) Uncoded Allergies: codine (Allergy, Mild, Itching, 11/07/21) Patient Home Medication List Home Medication List Reviewed: Yes Albuterol Sulfate (Ventolin Hfa) Unknown Strength Hfa.aer.ad, Unknown Dose, (Reported) Entered as Reported by: GREGORY ESQUIVEL on 03/07/22 1138 Amlodipine Besylate (Amlodipine Besylate) 5 Mg Tablet, 5 MG PO DAILY, (Reported) Entered as Reported by: GREGORY ESQUIVEL on 03/07/22 1138 Aspirin (Aspirin) 81 Mg Tab.chew, 81 MG PO DAILY, (Reported) Entered as Reported by: GREGORY ESQUIVEL on 03/07/22 1138 Atorvastatin Calcium (Atorvastatin Calcium) 40 Mg Tablet, 40 MG PO DAILY, (Reported) Entered as Reported by: JOAO BAEZA on 03/12/22 1019 Budesonide/Formoterol Fumarate (Symbicort 160-4.5 Mcg Inhaler) 160 Mcg-4.5 Mcg/Actuation Hfa.aer.ad, 2 PUFF IH BID, (Reported) Entered as Reported by: GREGORY ESQUIVEL on 03/07/22 1138 Cefuroxime Axetil (Cefuroxime) 500 Mg Tablet, 500 MG PO BID Prescribed by: Romina Villafana on 05/30/22 1301 Cephalexin (Cephalexin) 500 Mg Tablet, 500 MG PO BID Prescribed by: RADHA EID on 07/23/22 1827 Cetirizine HCl (Cetirizine HCl) 10 Mg Tablet, 10 MG PO DAILY, (Reported) Entered as Reported by: JOAO BAEZA on 03/12/22 1019 Cyclobenzaprine HCl (Cyclobenzaprine HCl) 10 Mg Tablet, 10 MG PO TID Prescribed by: RADHA EID on 06/12/22 1308 Fluoxetine HCl (Fluoxetine HCl) 10 Mg Capsule, 10 MG PO DAILY, (Reported) Entered as Reported by: JOAO BAEZA on 03/12/22 1019 Hydrocodone/Acetaminophen (Hydrocodone-Acetamin 5-325 mg) 5 Mg-325 Mg Tablet, 1 TAB PO Q4H PRN for PAIN-MODERATE (5-7) Prescribed by: RADHA EID on 06/12/22 1309 Lisinopril (Lisinopril) 40 Mg Tablet, 40 MG PO DAILY, (Reported) Entered as Reported by: GREGORY ESQUIVEL on 03/07/22 1138 Meclizine HCl (Meclizine HCl) 25 Mg Tablet, 25 MG PO Q6H PRN for DIZZINESS Prescribed by: COLE NEWTON on 05/23/222051 Melatonin/Pyridoxine (Melatonin 5 mg Tablet) 5 Mg-1 Mg Tablet, 1 EACH PO DAILY, (Reported) Entered as Reported by: JOAO BAEZA on 03/12/22 101 Montelukast Sodium (Montelukast Sodium) 10 Mg Tablet, 10 MG PO DAILY, (Reported) Entered as Reported by: JOAO BAEZA on 03/12/22 101 Ondansetron (Ondansetron Odt) 4 Mg Tab.rapdis, 4 MG SL Q8H PRN for NAUSEA/VOMITING Prescribed by: COLE NEWTON on 05/23/222051 Tamsulosin HCl (Flomax) 0.4 Mg Cap, 0.4 MG PO DAILY, (Reported) Entered as Reported by: JOAO BAEZA on 03/12/22 1019 Review of Systems Review of Systems Constitutional: No chills, No diaphoresis, No fever, No malaise, No weakness EENTM: No ear pain, No blurred vision, No double vision Respiratory: No dyspnea on exertion Cardiovascular: No chest pain Gastrointestinal: No abdominal pain, No diarrhea; nausea, vomiting Genitourinary: burning; denies discharge; dysuria, frequency, other (Decreased urine output) Psychiatric/Neurological: Denies Anxiety, Denies Depressed All Other Systemes Reviewed Negative Unless Noted: Yes Past Psmdgzn-Jsrpfs-Hwbfmy Hx Patient Social History Tobacco Use?: Yes Tobacco type used: Cigarettes Smoking Status: Current Everyday Smoker Substance use?: Yes Substance type: Marijuana Alcohol Use?: Yes Alcohol Frequency: Rarely Pt feels they are or have been: No Immunizations Up To Date First/Initial COVID19 Vaccinat: no Second COVID19 Vaccination Sriram: no Third COVID19 Vaccination Date: no Seasonal Allergies Seasonal Allergies: No Past Medical History Surgery/Hospitalization HX: femoral bypass, meniscus, hernia repair, HTN, RENAL STENT, GERD, DM, HLD, COPD Surgeries: Yes (HERNIA REPAIR W/MESH, 3 FEMORAL ARTERY BYPASS LAST ONE 2016) Respiratory: Yes COPD Cardiac: Yes (CAROTID <50%, BILATERAL CAROTID STENOSIS) Coronary Artery Disease, High Cholesterol, Hypertension Neurological: Yes Stroke, TIA Genitourinary: Yes ( 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)) Kidney Stones Gastrointestinal: Yes (HERNIA) Gastroesophageal Reflux Musculoskeletal: Yes Degenerate Disk Disease, Arthritis Endocrine: Yes (TYPE ii JUST RECENTLY DIAGNOSED WILL SEE PCP FOR MEDICATION) HEENT: Yes Hearing Impairment: Hard of Hearing 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 oz. kg; 19.00 BMI Method: General Appearance: WD/WN, no apparent distress HEENT: PERRL/EOMI, normal ENT inspection, TMs normal, pharynx normal Neck: non-tender, full range of motion, supple Cardiovascular: regular rate, rhythm, no edema, no gallop, no JVD Respiratory: chest non-tender, lungs clear, normal breath sounds, no respiratory distress, no accessory muscle use Gastrointestinal: normal bowel sounds, non tender, soft, no organomegaly, no pulsatile mass Back: normal inspection, no CVA tenderness, no vertebral tenderness Neurologic/Psychiatric: data typist II-XII nml as tested, no motor/sensory deficits, alert, normal mood/affect, oriented x 3 Skin: normal color, warm/dry Progress/Results/Core Measures Suspected Sepsis SIRS Temperature: Pulse: 92 Respiratory Rate: 18 Laboratory Tests 07/23/22 17:48: White Blood Count 4.5 Blood Pressure 160 /60 Mean: 93 Laboratory Tests 07/23/22 17:48: Creatinine 0.84, Platelet Count 239, Total Bilirubin 0.5 Results/Orders Lab Results Laboratory Tests Test 07/23/22 17:15 07/23/22 17:48 Range/Units Urine Color YELLOW Urine Clarity SL CLOUDY Urine pH 6.0 5-9 Urine Specific [place] 1.020 1.016-1.022 Urine Protein 2+ H NEGATIVE Urine Glucose (UA) NEGATIVE NEGATIVE Urine Ketones TRACE H NEGATIVE Urine Nitrite NEGATIVE NEGATIVE Urine Bilirubin NEGATIVE NEGATIVE Urine Urobilinogen 0.2 < = 1.0 MG/DL Urine Leukocyte Esterase 3+ H NEGATIVE Urine RBC (Auto) 2+ H NEGATIVE Urine RBC 2-5 H /HPF Urine WBC >100 H /HPF Urine Crystals NONE /LPF Urine Bacteria MODERATE H /HPF Urine Casts NONE /LPF Urine Mucus NEGATIVE /LPF Urine Yeast MODERATE H /HPF Urine Culture Indicated YES White Blood Count 4.5 4.3-11.0 10^3/uL Red Blood Count 5.05 4.30-5.52 10^6/uL Hemoglobin 15.9 13.3-17.7 g/dL Hematocrit 47 40-54 % Mean Corpuscular Volume 94 80-99 fL Mean Corpuscular Hemoglobin 32 25-34 pg Mean Corpuscular Hemoglobin Concent 34 32-36 g/dL Red Cell Distribution Width 13.1 10.0-14.5 % Platelet Count 239 130-400 10^3/uL Mean Platelet Volume 9.4 9.0-12.2 fL Immature Granulocyte % (Auto) 0 % Neutrophils (%) (Auto) 60 42-75 % Lymphocytes (%) (Auto) 25 12-44 % Monocytes (%) (Auto) 12 0-12 % Eosinophils (%) (Auto) 1 0-10 % Basophils (%) (Auto) 1 0-10 % Neutrophils # (Auto) 2.7 1.8-7.8 X 10^3 Lymphocytes # (Auto) 1.2 1.0-4.0 X 10^3 Monocytes # (Auto) 0.6 0.0-1.0 X 10^3 Eosinophils # (Auto) 0.1 0.0-0.3 10^3/uL Basophils # (Auto) 0.0 0.0-0.1 10^3/uL Immature Granulocyte # (Auto) 0.0 0.0-0.1 10^3/uL Sodium Level 139 135-145 MMOL/L Potassium Level 4.2 3.6-5.0 MMOL/L Chloride Level 103 98-107 MMOL/L Carbon Dioxide Level 23 21-32 MMOL/L Anion Gap 13 5-14 MMOL/L Blood Urea Nitrogen 10 7-18 MG/DL Creatinine 0.84 0.60-1.30 MG/DL Estimat Glomerular Filtration Rate 95 BUN/Creatinine Ratio 12 Glucose Level 162 H 70-105 MG/DL Calcium Level 10.7 H 8.5-10.1 MG/DL Corrected Calcium 10.6 H 8.5-10.1 MG/DL Total Bilirubin 0.5 0.1-1.0 MG/DL Aspartate Amino Transf (AST/SGOT) 11 5-34 U/L Alanine Aminotransferase (ALT/SGPT) 9 0-55 U/L Alkaline Phosphatase 80 40-136 U/L Total Protein 7.2 6.4-8.2 GM/DL Albumin 4.1 3.2-4.5 GM/DL My Orders Orders - LORENA PATHAK Ua Culture If Indicated (07/23/22 16:48) Bladder Scan (07/23/22 16:48) Cbc With Automated Diff (07/23/22 17:20) Comprehensive Metabolic Panel (07/23/22 17:20) Ns Iv 1000 Ml (Sodium Chloride 0.9%) (07/23/22 17:20) Ct Abd/Pelvis Wo(Kidney Stone) (07/23/22 17:20) Urine Culture (07/23/22 17:15) Ceftriaxone Pre-Mix (Rocephin Pre-Mix) (07/23/22 17:42) Vital Signs/I&O 07/23/22 16:46 Temp 36.5 Pulse 92 Resp 18 B/P (MAP) 160/60 (93) Pulse Ox 98 Capillary Refill : Blood Pressure Mean: 93 Departure Communication (PCP) Reviewed previous ER visits, H&P, lab testing. Patient follows a urologist at [facility]. Patient Had a ureter stent placed on July 04. Patient reports difficulty urinating over the past few days. Reports dribbling with urination. Has been drinking beer to help urinate. Patient was able to provide urine sample here. He is afebrile. Reports some mild left flank pain but that pain improves. No current abdominal pain or perineum pain. Does not appear in acute distress. CBC, CMP, urinalysis, CT abdomen pelvis was ordered. CBC, CMP grossly unremarkable. Refuse anything for pain. Urinalysis positive for infection. Postvoid bladder scan did not show urine. Not concern for outlet obstruction. CT abdomen pelvis shows nonobstructing left-sided nephrolithiasis 12 mm. Double-J nephroureteral stent on the left. No calculi along the course of the stent. Moderate dilation of the left renal pelvis. Prostamegaly. History of enlarged prostate. Patient received a dose of Rocephin. Patient Was able to urinate twice here. Concern for cystitis versus prostatitis. He states he has a known history of enlarged prostate. We will start patient on Keflex at this time. Patient has no perineal pain suggesting prostatitis. If no improvement may need to switch to Bactrim versus Cipro. Patient will follow-up with his urologist tomorrow regarding the nephrolithiasis. Patient does not appear toxic or septic. Return precaution were discussed Impression Primary Impression: Nephrolithiasis Additional Impression: UTI (urinary tract infection) Disposition: HOME, SELF-CARE Condition: Stable Departure-Patient Inst. Decision time for Depature: 18:27 Referrals: [facility] (PCP) Primary Care Physician DARRELL STRATTON APRN (Family) Primary Care Physician Patient Instructions: Urinary Tract Infection, Adult (DC) Add. Discharge Instructions: Take antibiotics as prescribed. Follow-up with urology. If not able to urinate with increasing abdominal pain to return back to ED All discharge instructions reviewed with patient and/or family. Voiced understanding. Scripts Fluconazole (Diflucan) 150 Mg Tablet 150 MG PO DAILY, #1 TAB Prov: LORENA PATHAK 07/23/22 Cephalexin (Cephalexin) 500 Mg Tablet 500 MG PO BID for 10 Days, #20 TAB Prov: LORENA PATHAK 07/23/22 LORENA PATHAK July 23, 2022 17:23
[2022-07-23 17:41] LABS: BACTERIA,URINE MODERATE /HPF; WBC,URINE >100 /HPF; YEAST,URINE MODERATE /HPF
[2022-07-23] MEDS ORDERED: cefTRIAXone PRE-MIX 50 ML IV STA (17:42)
--- NOTE | 2022-07-23 17:48 | Diagnostic Imaging Report ---
PROCEDURE: CT urinary tract, rule out kidney stone. TECHNIQUE: Multiple contiguous axial images were obtained through the abdomen and pelvis without the use of intravenous contrast. Auto Exposure Controls were utilized during the CT exam to meet ALARA standards for radiation dose reduction. INDICATION: Difficulty urinating. Patient had a recent ureteral stent placement. No prior studies are available for comparison. FINDINGS: The lung bases are clear. There is a small low-attenuation lesion in the left lobe of the liver measuring 12 mm, most consistent with a cyst. The gallbladder is unremarkable. There is no biliary ductal dilatation. The pancreas and spleen are unremarkable. No adrenal mass is identified. The right kidney is unremarkable. The left kidney does contain nonobstructing calculi, largest in the lower pole measuring approximately 12 mm. There is a double-J nephroureteral stent extending from the renal pelvis into the bladder. Renal pelvis is moderately dilated. No definite calculi are identified along the course of the stent. No bladder calculi are seen. Aorta is heavily calcified but nonaneurysmal. Bowel loops are normal in caliber. There is no ascites. Prostate is enlarged. IMPRESSION: 1. Nonobstructing left-sided nephrolithiasis. There is a double-J nephroureteral stent on the left. No definite calculi are identified along the course of the stent. There is moderate dilatation of the left renal pelvis. 2. Prostatomegaly. 3. No other significant abnormality is detected. Dictated by: Dictated on workstation # [id number]
[2022-07-23 17:52] LABS: BASOPHILS % (AUTO) 1 % (0-10); EOSINOPHILS # (AUTO) 0.1 10^3/uL (0.0-0.3); EOSINOPHILS % (AUTO) 1 % (0-10); HEMATOCRIT 47 % (40-54); HEMOGLOBIN 15.9 g/dL (13.3-17.7); LYMPHOCYTES # (AUTO) 1.2 X 10^3 (1.0-4.0); LYMPHOCYTES % (AUTO) 25 % (12-44); MEAN CORPUSCULAR HEMOGLOBIN 32 pg (25-34); MEAN CORPUSCULAR HGB CONC 34 g/dL (32-36); MEAN CORPUSCULAR VOLUME 94 fL (80-99); MEAN PLATELET VOLUME 9.4 fL (9.0-12.2); MONOCYTES # (AUTO) 0.6 X 10^3 (0.0-1.0); MONOCYTES % (AUTO) 12 % (0-12); NEUTROPHILS # (AUTO) 2.7 X 10^3 (1.8-7.8); NEUTROPHILS % (AUTO) 60 % (42-75); PLATELET COUNT 239 10^3/uL (130-400); WHITE BLOOD COUNT 4.5 10^3/uL (4.3-11.0)
[2022-07-23 18:16] LABS: ALBUMIN 4.1 GM/DL (3.2-4.5); POTASSIUM 4.2 MMOL/L (3.6-5.0)
[2022-07-23 18:17] LABS: CALCIUM 10.7 MG/DL (8.5-10.1)
[2022-07-23 18:18] LABS: TOTAL PROTEIN 7.2 GM/DL (6.4-8.2)
[2022-07-23 18:20] LABS: BILIRUBIN,TOTAL 0.5 MG/DL (0.1-1.0)
[2022-07-23 18:22] LABS: CREATININE SERUM 0.84 MG/DL (0.60-1.30)
[2022-07-23] MEDS ORDERED: CEPH500T PO (18:27)
[2022-07-23 18:46] VITALS: BP 166/80
[2022-07-23] MEDS ORDERED: FLUC150T PO (18:46)
== END 2022-07-23 18:46 | disposition home or self-care (01) ==
LOC: EDUNIT# 16:39 → ER 16:41
DX: N20.0 Calculus of kidney (principal); N39.0 Urinary tract infection, site not specified; F17.210 Nicotine dependence, cigarettes, uncomplicated; Z28.310 Unvaccinated for COVID-19; Z96.0 Presence of urogenital implants
CPT/HCPCS: 36415; 74176; 80053; 81000; 85025; 87088

== ENCOUNTER 2022-10-01 16:14 | Emergency (ER) | payer MEDICARE ==
[~2022-10-01] VITALS: Ht 178 cm; Wt 57.0 kg
[~2022-10-01 16:14] MED LIST changes: +CEPH500T PO; +FLUC150T PO
--- NOTE | 2022-10-01 16:31 | ED Syncope ---
General Chief Complaint: Neurological Problems Stated Complaint: STROKE LIKE SYMPTOMS Nursing Triage Note: PT WITH DAUGHTER SENT FROM [facility] WITH CC OF DIZZY SPELL, INABILITY TO SPEAK, VISUAL ISSUESS THAT STARTED ABOUT 1400, EQUAL WEAKNESS IN ARMS AND LEGS BOTH, STROKE 05/2021 AND TIA'S. THIS HAS HAPPENED A FEW TIMES OVER THE LAST COUPLE MONTHS. PT HAS FALLEN FROM THIS AND IT HAPPENS AFTER HE STANDS UP Source of Information: Patient Exam Limitations: No Limitations (BASHIR VAIL MD) History of Present Illness Date Seen by Provider: Oct 01, 2022 Time Seen by Provider: 16:19 Initial Comments Patient was referred to ER by the [facility] clinic. He has reported multiple episodes of near syncope and a couple episodes of syncope at home over the past few months, usually upon standing. He is on Lisinopril 40 mg and Amlodipine 5 mg daily. Family comments that his dosing requirements may have changed as he has lost weight recently. Patient reported carotid artery ultrasound performed in the clinic setting with Dr. Sylvester within the last year demonstrating less than 50% stenosis. He denies chest pain or SOA. There are not focal neurologic deficits that persist beyond a few minutes after the episodes. He presently has a left renal stent and sees urology at [facility]. (BASHIR VAIL MD) Initial Comments This is a 67 year old male who presents to the ED complaining of dizzy spells and weakness in arms and legs. The patients daughter is present who helps facilitate history. Daughter states that he came from the [facility] clinic when the episode happened at around 2pm and his BP was 90/68. The patient takes Amlodipine and Lisinopril for HTN. Patient reports that when he has these "episodes" his legs become weak and the room spins. This has happened 2-3 times over the last couple months. Patient reports that he becomes dizzy when he stands up from his chair and if he tries to stand up from lying in his bed. He states that when this happens he has to grab onto something to prevent from falling down. Patient reports after the "episodes" it feels like he is floating around. Patient reports a history of stroke on 05/2021. Patient has a history of daily alcohol use, THC and smokes 1.5 PPD. Patient currently denies fever, chills, nausea, vomiting, palpitations, headache, changes in vision. (SHAE RICE) Allergies and Home Medications Allergies Coded Allergies: morphine (Unverified Allergy, Mild, Itching, 03/07/22) Uncoded Allergies: codine (Allergy, Mild, Itching, 11/07/21) Patient Home Medication List Home Medication List Reviewed: Yes (BASHIR VAIL MD) Albuterol Sulfate (Ventolin Hfa) Unknown Strength Hfa.aer.ad, Unknown Dose, (Reported) Entered as Reported by: GREGORY ESQUIVEL on 03/07/22 1138 Amlodipine Besylate (Amlodipine Besylate) 5 Mg Tablet, 5 MG PO DAILY, (Reported) Entered as Reported by: GREGORY ESQUIVEL on 03/07/22 1138 Aspirin (Aspirin) 81 Mg Tab.chew, 81 MG PO DAILY, (Reported) Entered as Reported by: GREGORY ESQUIVEL on 03/07/22 1138 Atorvastatin Calcium (Atorvastatin Calcium) 40 Mg Tablet, 40 MG PO DAILY, (Reported) Entered as Reported by: JOAO BAEZA on 03/12/22 1019 Budesonide/Formoterol Fumarate (Symbicort 160-4.5 Mcg Inhaler) 160 Mcg-4.5 Mcg/Actuation Hfa.aer.ad, 2 PUFF IH BID, (Reported) Entered as Reported by: GREGORY ESQUIVEL on 03/07/22 1138 Cefdinir (Cefdinir) 300 Mg Capsule, 300 MG PO BID Prescribed by: BASHIR FLANNERY on 10/01/22 194 Cefuroxime Axetil (Cefuroxime) 500 Mg Tablet, 500 MG PO BID Prescribed by: Romina Villafana on 05/30/22 1301 Cephalexin (Cephalexin) 500 Mg Tablet, 500 MG PO BID Prescribed by: RADHA EID on 07/23/22 1827 Cetirizine HCl (Cetirizine HCl) 10 Mg Tablet, 10 MG PO DAILY, (Reported) Entered as Reported by: JOAO BAEZA on 03/12/22 1019 Cyclobenzaprine HCl (Cyclobenzaprine HCl) 10 Mg Tablet, 10 MG PO TID Prescribed by: RADHA EID on 06/12/22 1308 Fluconazole (Diflucan) 150 Mg Tablet, 150 MG PO DAILY Prescribed by: RADHA EID on 07/23/22 1846 Fluoxetine HCl (Fluoxetine HCl) 10 Mg Capsule, 10 MG PO DAILY, (Reported) Entered as Reported by: JOAO BAEZA on 03/12/22 1019 Hydrocodone/Acetaminophen (Hydrocodone-Acetamin 5-325 mg) 5 Mg-325 Mg Tablet, 1 TAB PO Q4H PRN for PAIN-MODERATE (5-7) Prescribed by: RADHA EID on 06/12/22 1309 Lisinopril (Lisinopril) 40 Mg Tablet, 40 MG PO DAILY, (Reported) Entered as Reported by: GREGORY ESQUIVEL on 03/07/22 1138 Meclizine HCl (Meclizine HCl) 25 Mg Tablet, 25 MG PO Q6H PRN for DIZZINESS Prescribed by: COLE NEWTON on 05/23/222051 Melatonin/Pyridoxine (Melatonin 5 mg Tablet) 5 Mg-1 Mg Tablet, 1 EACH PO DAILY, (Reported) Entered as Reported by: JOAO BAEZA on 03/12/22 1019 Montelukast Sodium (Montelukast Sodium) 10 Mg Tablet, 10 MG PO DAILY, (Reported) Entered as Reported by: JOAO BAEZA on 03/12/22 1019 Ondansetron (Ondansetron Odt) 4 Mg Tab.rapdis, 4 MG SL Q8H PRN for NAUSEA/VOMITING Prescribed by: COLE NEWTON on 05/23/222051 Tamsulosin HCl (Flomax) 0.4 Mg Cap, 0.4 MG PO DAILY, (Reported) Entered as Reported by: JOAO BAEZA on 03/12/22 1019 Review of Systems Constitutional: weakness EENTM: see HPI Respiratory: no symptoms reported Cardiovascular: no symptoms reported Genitourinary: no symptoms reported Skin: no symptoms reported Psychiatric/Neurological: Denies Headache; Weakness (SHAE RICE) Past Bcovhcq-Oqqaaz-Ddpaum Hx Patient Social History Tobacco Use?: Yes Tobacco type used: Cigarettes Smoking Status: Current Everyday Smoker Substance use?: Yes Substance type: Marijuana Alcohol Use?: Yes Alcohol type: Beer Alcohol Frequency: Daily (BASHIR VAIL MD) Tobacco Use?: Yes Tobacco type used: Cigarettes Smoking Status: Current Everyday Smoker Use of E-Cig and/or Vaping dev: No Substance use?: Yes Substance type: Marijuana Alcohol Use?: Yes Alcohol type: Beer Alcohol Frequency: Daily (SHAE RICE) Immunizations Up To Date First/Initial COVID19 Vaccinat: no Second COVID19 Vaccination Sriram: no Third COVID19 Vaccination Date: no (BASHIR VAIL MD) Seasonal Allergies Seasonal Allergies: No (BASHIR VAIL MD) Past Medical History Surgery/Hospitalization HX: femoral bypass, meniscus, hernia repair, HTN, RENAL STENT, GERD, DM TYPE II, HLD, COPD Surgeries: Yes (HERNIA REPAIR W/MESH, 3 FEMORAL ARTERY BYPASS LAST ONE 2016) Respiratory: Yes COPD Cardiac: Yes (CAROTID <50%, BILATERAL CAROTID STENOSIS) Coronary Artery Disease, High Cholesterol, Hypertension Neurological: Yes Stroke, TIA Genitourinary: Yes ( 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), left ureteral stent) Kidney Stones Gastrointestinal: Yes (HERNIA) Gastroesophageal Reflux Musculoskeletal: Yes Degenerate Disk Disease, Arthritis Endocrine: Yes (TYPE ii JUST RECENTLY DIAGNOSED WILL SEE PCP FOR MEDICATION) HEENT: Yes Hearing Impairment: Hard of Hearing 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) What Type of Treatment Did You: Surgical Intervention Psychosocial: Yes Anxiety, Depression Integumentary: No Blood Disorders: No (BASHIR VAIL MD) Surgeries: Yes Orthopedic (meniscus repair) Respiratory: Yes COPD Cardiac: Yes Hypertension Neurological: No Gastrointestinal: Yes Gastroesophageal Reflux Musculoskeletal: No Endocrine: Yes Diabetes, Non-Insulin dep HEENT: No Cancer: No Psychosocial: No (SHAE RICE) Physical Exam Vital Signs Vital Signs - First Documented 10/01/22 16:17 Temp 36.5 Pulse 79 Resp 18 B/P (MAP) 119/85 (96) Pulse Ox 98 O2 Delivery Room Air (SHAE RICE) Vital Signs Capillary Refill : Less Than 3 Seconds (BASHIR VAIL MD) Height, Weight, BMI Height: '" Weight: lbs. oz. kg; 17.00 BMI Method: (BASHIR VAIL MD) General Appearance: No Apparent Distress HEENT: PERRL/EOMI Cardiovascular: Regular Rate, Rhythm, No Edema Respiratory: Normal Breath Sounds, No Accessory Muscle Use Gastrointestinal: Normal Bowel Sounds Extremities: Normal Capillary Refill Neurologic/Psychiatric: Alert, practice coordinator II-XII Norm as Tested Cranial Nerves: Normal Speech Skin: Normal Color, Warm/Dry (ANGELIQUENDALBERTO CONTRERASISON) Progress/Results/Core Measures Results/Orders Lab Results Laboratory Tests Test 10/01/22 16:19 Range/Units White Blood Count 9.2 4.3-11.0 10^3/uL Red Blood Count 4.56 4.30-5.52 10^6/uL Hemoglobin 14.6 13.3-17.7 g/dL Hematocrit 44 40-54 % Mean Corpuscular Volume 97 80-99 fL Mean Corpuscular Hemoglobin 32 25-34 pg Mean Corpuscular Hemoglobin Concent 33 32-36 g/dL Red Cell Distribution Width 14.7 H 10.0-14.5 % Platelet Count 238 130-400 10^3/uL Mean Platelet Volume 9.7 9.0-12.2 fL Immature Granulocyte % (Auto) 0 % Neutrophils (%) (Auto) 82 H 42-75 % Lymphocytes (%) (Auto) 11 L 12-44 % Monocytes (%) (Auto) 6 0-12 % Eosinophils (%) (Auto) 0 0-10 % Basophils (%) (Auto) 0 0-10 % Neutrophils # (Auto) 7.5 1.8-7.8 10^3/uL Lymphocytes # (Auto) 1.0 1.0-4.0 10^3/uL Monocytes # (Auto) 0.6 0.0-1.0 10^3/uL Eosinophils # (Auto) 0.0 0.0-0.3 10^3/uL Basophils # (Auto) 0.0 0.0-0.1 10^3/uL Immature Granulocyte # (Auto) 0.0 0.0-0.1 10^3/uL Sodium Level 136 135-145 MMOL/L Potassium Level 4.1 3.6-5.0 MMOL/L Chloride Level 102 98-107 MMOL/L Carbon Dioxide Level 23 21-32 MMOL/L Anion Gap 11 5-14 MMOL/L Blood Urea Nitrogen 15 7-18 MG/DL Creatinine 1.09 0.60-1.30 MG/DL Estimat Glomerular Filtration Rate 73 BUN/Creatinine Ratio 14 Glucose Level 172 H 70-105 MG/DL Calcium Level 10.7 H 8.5-10.1 MG/DL Corrected Calcium 10.6 H 8.5-10.1 MG/DL Magnesium Level 2.0 1.6-2.4 MG/DL Total Bilirubin 0.5 0.1-1.0 MG/DL Aspartate Amino Transf (AST/SGOT) 11 5-34 U/L Alanine Aminotransferase (ALT/SGPT) 8 0-55 U/L Alkaline Phosphatase 83 40-136 U/L Total Protein 7.2 6.4-8.2 GM/DL Albumin 4.1 3.2-4.5 GM/DL (SHAE RICE) Medications Given in ED Current Medications Medications Dose Ordered Sig/Gadiel Route Start Time Stop Time Status Last Admin Dose Admin Lactated Ringer's 1,000 ml @ 0 mls/hr Q0M ONCE IV 10/01/22 17:30 10/01/22 17:31 DC 10/01/22 17:31 999 MLS/HR (SHAE RICE) Vital Signs/I&O 10/01/22 10/01/22 16:17 17:22 Temp 36.5 Pulse 79 64 70 70 Resp 18 B/P (MAP) 119/85 (96) 112/69 (83) 91/63 (72) 89/66 (74) Pulse Ox 98 O2 Delivery Room Air (SHAE RICE) Blood Pressure Mean: 96 Progress Progress Note : Progress Note Patient was interviewed and examined shortly after arrival at 1619 during the triage process. PA student Shae Rice also performed physical and assisted with the history. Her documentation is included in this note. Patient was found to have no focal neurologic deficits during assessment. He did have positive orthostatic blood pressures. They are as follows: Supine 112/69, heart rate 64; sitting 91/63, heart rate 70; standing 89/66, heart rate 70. Patient was symptomatic during standing as well. He was hydrated with 1500 mL IV fluid. Symptoms greatly improved and orthostasis resolved with standing blood pressure in the 120s after hydration. Patient reported carotid arteries are being monitored in the outpatient setting. He currently does not have any critical stenosis based on ultrasound performed in the last 6 months. EKG was interpreted by me and there were no clinically significant abnormalities. See below. Labs were obtained and interpreted by me. CBC was grossly unremarkable. CMP demonstrated no significant abnormalities except for mild hyperglycemia and mildly elevated calcium, likely suggestive of hydration status. UA demonstrated pyuria suggestive of urinary tract infection. Rocephin was administered for treatment of UTI. Patient likely has a decreased requirement for antihypertensives with his weight loss. He was advised to stop amlodipine. He was also advised to keep tight control of his blood sugars to help prevent urinary tract infection and glycemic diuresis. Close follow-up with primary care and cardiology was recommended. See discharge instructions for further discussion. (BASHIR VAIL MD) Initial ECG Impression Date: Oct 01, 2022 Initial ECG Impression Time: 17:15 Initial ECG Rate: 67 Initial ECG Rhythm: Normal Sinus Initial ECG Intervals: Normal Comment Normal sinus rhythm with no ST elevation or depression. No abnormal intervals or axis deviation. (BASHIR VAIL MD) Departure Impression Primary Impression: Orthostatic hypotension Additional Impressions: Syncope Qualified Codes: R55 - Syncope and collapse Urinary tract infection Qualified Codes: N39.0 - Urinary tract infection, site not specified Disposition: HOME, SELF-CARE Condition: Improved Departure-Patient Inst. Decision time for Depature: 19:41 (BASHIR VAIL MD) Referrals: [facility] [place] Primary Care Physician DARRELL STRATTON APRN (Family) Primary Care Physician Patient Instructions: Urinary tract infections in adults, Orthostatic Hypotensi on (DC) Add. Discharge Instructions: Your syncope (passing out) is likely related to hydration status and overmedication with your blood pressure pills since you have lost weight. Stop amlodipine, but continue lisinopril. If you continue to have low blood pressure upon standing, cut the lisinopril in half until otherwise directed. Drink plenty of water to stay well-hydrated. Monitor your blood sugars closely. If your blood sugars are high, you may spill sugar into your urine. This will cause dehydration and predispose you to bladder infections. Follow-up with your primary care provider soon as possible. You need to review your medications, have a blood pressure check, and review urine cultures with your doctor. This should be done within the next week. Urine culture results should be available in about 48 hours. Please notify your urologist tomorrow morning that you have a urinary tract infection. This is very important to communicate as you still have a stent in your left ureter. If you have worsening symptoms such as escalating pain in your left flank or abdomen or develop fever, please return to the emergency room as this may indicate a severe infectious complication with your stent. Follow-up with Dr. Akers as soon as possible regarding your episodes of syncope (passing out). Although this is likely caused by your blood pressure and fluid status, there could be other causes such as heart rhythm issues. Discussed further monitoring and evaluation with Dr. Akers. External or internal cardiac monitoring may be an option. Return to the ER if you have any other worsening of symptoms that require urgent attention. All discharge instructions reviewed with patient and/or family. Voiced understanding. Scripts Cefdinir (Cefdinir) 300 Mg Capsule 300 MG PO BID, #20 CAP 0 Refills Prov: BASHIR VAIL MD 10/01/22 Medical Student Attestation and Attending Note: I have personally interviewed and examined this patient along with Shae Rice, RADHA student. I have reviewed student documentation including history, physical, and assessments. I agree with the documentation except where otherwise noted. Exam: General: Alert, oriented, no acute distress, well developed HEENT: Normocephalic and atraumatic Heart: Regular rate and rhythm without murmur Lungs: Clear to auscultation bilaterally with normal effort Abdomen: Soft, nontender, nondistended, normal bowel sounds Neuropsych: Alert, oriented, no focal deficits Skin: Warm and dry without rashes (BASHIR VAIL MD) Copy Copies To 1: [facility] [place] Copies To 2: SANDRA SYLVESTER MD, JOSHUA T MD Oct 01, 2022 16:30 SHAE RICE Oct 01, 2022 16:42
[2022-10-01 16:34] LABS: BASOPHILS % (AUTO) 0 % (0-10); EOSINOPHILS % (AUTO) 0 % (0-10); HEMATOCRIT 44 % (40-54); HEMOGLOBIN 14.6 g/dL (13.3-17.7); LYMPHOCYTES % (AUTO) 11 % (12-44); MEAN CORPUSCULAR HEMOGLOBIN 32 pg (25-34); MEAN CORPUSCULAR HGB CONC 33 g/dL (32-36); MEAN CORPUSCULAR VOLUME 97 fL (80-99); MEAN PLATELET VOLUME 9.7 fL (9.0-12.2); MONOCYTES # (AUTO) 0.6 10^3/uL (0.0-1.0); MONOCYTES % (AUTO) 6 % (0-12); NEUTROPHILS # (AUTO) 7.5 10^3/uL (1.8-7.8); NEUTROPHILS % (AUTO) 82 % (42-75); PLATELET COUNT 238 10^3/uL (130-400); WHITE BLOOD COUNT 9.2 10^3/uL (4.3-11.0)
[2022-10-01 16:55] LABS: ALBUMIN 4.1 GM/DL (3.2-4.5)
[2022-10-01 16:56] LABS: POTASSIUM 4.1 MMOL/L (3.6-5.0)
[2022-10-01 16:57] LABS: CALCIUM 10.7 MG/DL (8.5-10.1)
[2022-10-01 16:58] LABS: TOTAL PROTEIN 7.2 GM/DL (6.4-8.2)
[2022-10-01 17:00] LABS: BILIRUBIN,TOTAL 0.5 MG/DL (0.1-1.0)
[2022-10-01 17:02] LABS: CREATININE SERUM 1.09 MG/DL (0.60-1.30)
[2022-10-01 17:22] VITALS: BP_SYST 112; BP_SYST 89; BP_SYST 91; BP_DIAS 63; BP_DIAS 66; BP_DIAS 69
[2022-10-01] MEDS ORDERED: LACTATED RINGERS 1,000 ML IV ONE (17:30)
[2022-10-01 17:55] LABS: BILIRUBIN,URINE NEGATIVE (NEGATIVE); CLARITY,URINE CLOUDY; COLOR,URINE YELLOW; GLUCOSE, URINE (UA) 3+ (NEGATIVE); KETONES,URINE NEGATIVE (NEGATIVE); LEUKOCYTE ESTERASE ,URINE TRACE (NEGATIVE); NITRITE,URINE NEGATIVE (NEGATIVE); PROTEIN,URINE 2+ (NEGATIVE)
[2022-10-01 18:03] LABS: BACTERIA,URINE FEW /HPF; SQUAMOUS EPITHELIAL CELL,UR RARE /HPF; WBC,URINE TNTC /HPF
[2022-10-01] MEDS ORDERED: cefTRIAXone IV/IM 1,000 MG in NS (IVPB) 50 ML 50 ML IV STA (18:17)
[2022-10-01] MEDS ORDERED: NS IV 500 ML 500 ML IV ONE (18:30)
[2022-10-01] MEDS ORDERED: CEFD300C3 PO (19:45)
[2022-10-01 20:14] VITALS: BP 153/88
== END 2022-10-01 20:14 | disposition home or self-care (01) ==
LOC: EDUNIT# 16:14 → ER 16:15
DX: I95.1 Orthostatic hypotension (principal); N39.0 Urinary tract infection, site not specified; F17.210 Nicotine dependence, cigarettes, uncomplicated; Z87.442 Personal history of urinary calculi; Z96.0 Presence of urogenital implants; Z79.899 Other long term (current) drug therapy; Z28.310 Unvaccinated for COVID-19
CPT/HCPCS: 36415; 80053; 81000; 83735; 85025; 87088; 93005; 93041

== ENCOUNTER 2022-10-08 09:04 | Day surgery (SDC) | payer MEDICARE ==
[~2022-10-08] VITALS: Ht 175 cm; Wt 61.6 kg
[~2022-10-08 09:04] MED LIST changes: +CEFD300C3 PO
[2022-10-08] MEDS ORDERED: LIDOCAINE 1% INJ 20 ML VIAL ONE (09:20)
[2022-10-08] MEDS ORDERED: LIDOCAINE 1% INJ 20 ML VIAL INJ ONE (09:30)
[2022-10-08 09:40] VITALS: BP 148/91
--- NOTE | 2022-10-08 15:01 | OPERATIVE REPORT ---
DATE OF SERVICE: 10/08/2022 PREOPERATIVE DIAGNOSES: Dizziness and near syncope. POSTOPERATIVE DIAGNOSES: Dizziness and near syncope. PROCEDURE: Implantable loop recorder implantation. DESCRIPTION OF PROCEDURE: Implantable loop recorder implantation was carried out after having obtained informed consent. [facility] The left prepectoral area was prepared and draped in the usual sterile fashion. 1% lidocaine used for local anesthesia. The tools provided with the [employer] LINQ II Device were used to make a subcutaneous pocket anterior to the fourth intercostal space into which the device was placed and the wound edges were closed using Dermabond and Steri-Strips. The patient tolerated the procedure well. The serial number of the device is [id number]. Job ID: [id number] DocumentID: [id number] Dictated Date: 10/08/2022 10:17:23 Core Carrier Date: 10/08/2022 14:59:00 Dictated By: IRAIS WHITE MD; VANDA; FACP; FACC;
== END 2022-10-08 10:42 | disposition home or self-care (01) ==
LOC: CATH 09:04
PROVIDERS: ATTEND Internal Medicine Cardiovascular Disease
DX: R42 Dizziness and giddiness (principal); R55 Syncope and collapse; R06.02 Shortness of breath; I10 Essential (primary) hypertension; I65.23 Occlusion and stenosis of bilateral carotid arteries; I73.9 Peripheral vascular disease, unspecified; E11.9 Type 2 diabetes mellitus without complications; J44.9 Chronic obstructive pulmonary disease, unspecified; G47.33 Obstructive sleep apnea (adult) (pediatric); G89.29 Other chronic pain; R06.09 Other forms of dyspnea; M54.9 Dorsalgia, unspecified; E11.42 Type 2 diabetes mellitus with diabetic polyneuropathy; E78.2 Mixed hyperlipidemia; F17.210 Nicotine dependence, cigarettes, uncomplicated; F32.A Depression, unspecified; F12.90 Cannabis use, unspecified, uncomplicated; F10.10 Alcohol abuse, uncomplicated; Z91.199 Patient's noncompliance with other medical treatment and regimen due to unspecified reason; Z28.310 Unvaccinated for COVID-19; Z98.890 Other specified postprocedural states; Z86.79 Personal history of other diseases of the circulatory system; Z79.899 Other long term (current) drug therapy; Z79.84 Long term (current) use of oral hypoglycemic drugs; Z79.82 Long term (current) use of aspirin
CPT/HCPCS: 33285; C1764

== ENCOUNTER 2022-12-07 20:03 | Emergency (ER) | payer MEDICARE ==
[~2022-12-07] VITALS: Ht 177.8 cm; Wt 57.1 kg
[~2022-12-07 20:03] MED LIST changes: -MECL-149 PO; +MECL-291 PO
[2022-12-07 20:43] LABS: CLARITY,URINE CLOUDY; COLOR,URINE YELLOW; PH,URINE 5.5 (5-9)
[2022-12-07 20:44] LABS: BACTERIA,URINE TRACE /HPF; BILIRUBIN,URINE NEGATIVE (NEGATIVE); GLUCOSE, URINE (UA) 3+ (NEGATIVE); KETONES,URINE NEGATIVE (NEGATIVE); LEUKOCYTE ESTERASE ,URINE 1+ (NEGATIVE); NITRITE,URINE NEGATIVE (NEGATIVE); PROTEIN,URINE 1+ (NEGATIVE); WBC,URINE 50-100 /HPF
[2022-12-07] MEDS ORDERED: LIDOCAINE UROJET 2% GEL 10 ML PKG TOP ONE (20:45)
--- NOTE | 2022-12-07 20:48 | ED GU-Male ---
General Chief Complaint: - Reproductive Stated Complaint: UNABLE TO URINATE Nursing Triage Note: BROUGHT IN BY [facility] FOR URINARY RETENTION X3 MONTHS, WORSE TONIGHT. C/O LOWER ABDOMINAL PRESSURE. REPORTS FINISHING ABX FOR UTI 12/06/22 Source: patient Exam Limitations: no limitations History of Present Illness Date Seen by Provider: Dec 07, 2022 Time Seen by Provider: 20:23 Initial Comments 67-year-old male presents to the ER with concerns for a urinary tract infection. He reports urinary retention which has been going on for 3 months. He was recently on an antibiotic, states he finished it on Friday. He complains of pressure in his penis when he feels like he needs to urinate. States that he only urinates a small amount at a time. He also reports constipation, states that he has been having very small pebble-like bowel movements. States that after he has a bowel movement, his urination improves. Denies fevers, abdominal pain, vomiting, diarrhea, urinary. Allergies and Home Medications Allergies Coded Allergies: morphine (Unverified Allergy, Mild, Itching, 03/07/22) Uncoded Allergies: codine (Allergy, Mild, Itching, 11/07/21) Patient Home Medication List Home Medication List Reviewed: Yes Albuterol Sulfate (Ventolin Hfa) Unknown Strength Hfa.aer.ad, Unknown Dose, (Reported) Entered as Reported by: GREGORY ESQUIVEL on 03/07/22 1138 Amlodipine Besylate (Amlodipine Besylate) 5 Mg Tablet, 5 MG PO DAILY, (Reported) Entered as Reported by: GREGORY ESQUIVEL on 03/07/22 1138 Aspirin (Aspirin) 81 Mg Tab.chew, 81 MG PO DAILY, (Reported) Entered as Reported by: GREGORY ESQUIVEL on 03/07/22 1138 Atorvastatin Calcium (Atorvastatin Calcium) 40 Mg Tablet, 40 MG PO DAILY, (Reported) Entered as Reported by: JOAO BAEZA on 03/12/22 1019 Budesonide/Formoterol Fumarate (Symbicort 160-4.5 Mcg Inhaler) 160 Mcg-4.5 Mcg/Actuation Hfa.aer.ad, 2 PUFF IH BID, (Reported) Entered as Reported by: GREGORY ESQUIVEL on 03/07/22 1138 Cefdinir (Cefdinir) 300 Mg Capsule, 300 MG PO BID Prescribed by: BASHIR FLANNERY on 10/01/22 194 Cefuroxime Axetil (Cefuroxime) 500 Mg Tablet, 500 MG PO BID Prescribed by: Romina Villafana on 05/30/22 1301 Cefuroxime Axetil (Cefuroxime) 500 Mg Tablet, 500 MG PO BID Prescribed by: Romina Villafana on 12/07/22 211 Cephalexin (Cephalexin) 500 Mg Tablet, 500 MG PO BID Prescribed by: RADHA EID on 07/23/22 182 Cephalexin (Cephalexin) 500 Mg Tablet, 500 MG PO TID Prescribed by: RADHA EID on 11/18/22 191 Cetirizine HCl (Cetirizine HCl) 10 Mg Tablet, 10 MG PO DAILY, (Reported) Entered as Reported by: JOAO BAEZA on 03/12/22 1019 Cyclobenzaprine HCl (Cyclobenzaprine HCl) 10 Mg Tablet, 10 MG PO TID Prescribed by: RADHA EID on 06/12/22 1308 Fluconazole (Diflucan) 150 Mg Tablet, 150 MG PO DAILY Prescribed by: RADHA EID on 07/23/22 184 Fluconazole (Diflucan) 150 Mg Tablet, 150 MG PO ONCE Prescribed by: RADHA EID on 11/18/221957 Fluoxetine HCl (Fluoxetine HCl) 10 Mg Capsule, 10 MG PO DAILY, (Reported) Entered as Reported by: JOAO BAEZA on 03/12/22 1019 Hydrocodone/Acetaminophen (Hydrocodone-Acetamin 5-325 mg) 5 Mg-325 Mg Tablet, 1 TAB PO Q4H PRN for PAIN-MODERATE (5-7) Prescribed by: RADHA EID on 06/12/22 1309 Lisinopril (Lisinopril) 40 Mg Tablet, 40 MG PO DAILY, (Reported) Entered as Reported by: GREGORY ESQUIVEL on 03/07/22 1138 Meclizine HCl (Meclizine HCl) 25 Mg Tablet, 25 MG PO Q6H PRN for DIZZINESS Prescribed by: COLE NEWTON on 05/23/222051 Melatonin/Pyridoxine (Melatonin 5 mg Tablet) 5 Mg-1 Mg Tablet, 1 EACH PO DAILY, (Reported) Entered as Reported by: JOAO BAEZA on 03/12/22 1019 Montelukast Sodium (Montelukast Sodium) 10 Mg Tablet, 10 MG PO DAILY, (Reported) Entered as Reported by: JOAO BAEZA on 03/12/22 1019 Ondansetron (Ondansetron Odt) 4 Mg Tab.rapdis, 4 MG SL Q8H PRN for NAUSEA/VOMITING Prescribed by: COLE NEWTON on 05/23/222051 Tamsulosin HCl (Flomax) 0.4 Mg Cap, 0.4 MG PO DAILY, (Reported) Entered as Reported by: JOAO BAEZA on 03/12/22 1019 Review of Systems Review of Systems Constitutional: see HPI Past Ijupumu-Ubdvvz-[id number] Hx Patient Social History Tobacco Use?: Yes Substance use?: Yes Substance type: Marijuana Alcohol Use?: Yes Alcohol Frequency: Once in a while Pt feels they are or have been: No Immunizations Up To Date First/Initial COVID19 Vaccinat: no Second COVID19 Vaccination Sriram: no Third COVID19 Vaccination Date: no Seasonal Allergies Seasonal Allergies: No Past Medical History Surgery/Hospitalization HX: femoral bypass, meniscus, hernia repair, HTN, RENAL STENT, GERD, DM TYPE II, HLD, COPD, TIA, URINARY RETENTION, UTI Surgeries: Yes Orthopedic Respiratory: Yes COPD Cardiac: Yes High Cholesterol, Hypertension Neurological: No Stroke, TIA Genitourinary: Yes ( 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), left ureteral stent) Kidney Stones Gastrointestinal: Yes Abdominal Hernia, Gastroesophageal Reflux Musculoskeletal: No Degenerate Disk Disease, Arthritis Endocrine: Yes Diabetes, Non-Insulin dep HEENT: No Hearing Impairment: Hard of Hearing Cancer: No What Type of Treatment Did You: Surgical Intervention Psychosocial: No Anxiety, Depression Integumentary: No Blood Disorders: No Physical Exam Vital Signs Vital Signs - First Documented 12/07/22 20:06 Temp 36.6 Pulse 79 Resp 16 B/P (MAP) 144/110 (121) Pulse Ox 97 O2 Delivery Room Air Capillary Refill : Less Than 3 Seconds Height, Weight, BMI Height: '" Weight: lbs. oz. kg; 18.00 BMI Method: General Appearance: WD/WN, no apparent distress Neck: supple, normal inspection Cardiovascular: regular rate, rhythm Respiratory: lungs clear, normal breath sounds, no respiratory distress, no accessory muscle use Gastrointestinal: normal bowel sounds, non tender, soft Extremities: normal range of motion, normal inspection Neurologic/Psychiatric: alert, normal mood/affect Skin: normal color, warm/dry Progress/Results/Core Measures Suspected Sepsis SIRS Temperature: Pulse: 79 Respiratory Rate: 16 Blood Pressure 144 /110 Mean: 121 Results/Orders Lab Results Laboratory Tests Test 12/07/22 20:08 Range/Units Urine Color YELLOW Urine Clarity CLOUDY Urine pH 5.5 5-9 Urine Specific [place] <=1.005 1.016-1.022 Urine Protein 1+ H NEGATIVE Urine Glucose (UA) 3+ H NEGATIVE Urine Ketones NEGATIVE NEGATIVE Urine Nitrite NEGATIVE NEGATIVE Urine Bilirubin NEGATIVE NEGATIVE Urine Urobilinogen 0.2 < = 1.0 MG/DL Urine Leukocyte Esterase 1+ H NEGATIVE Urine RBC (Auto) 2+ H NEGATIVE Urine RBC 5-10 H /HPF Urine WBC 50-100 H /HPF Urine Squamous Epithelial Cells NONE /HPF Urine Crystals NONE /LPF Urine Bacteria TRACE /HPF Urine Casts NONE /LPF Urine Mucus SMALL H /LPF Urine Culture Indicated YES My Orders Orders - ROMINA CABRAL APRN Ua Culture If Indicated (12/07/22 20:23) Catheter(Urinary) Insert & Ass 03,15 (12/07/22 20:40) Lidocaine 2% (Urojet) (Lidocaine 2% (Uro (12/07/22 20:45) Urine Culture (12/07/22 20:08) Cephalexin Capsule (Cephalexin Capsule) (12/07/22 21:00) Medications Given in ED Current Medications Medications Dose Ordered Sig/Gadiel Route Start Time Stop Time Status Last Admin Dose Admin Cephalexin HCl 500 mg ONCE ONCE PO 12/07/22 21:00 12/07/22 21:01 DC 12/07/22 20:57 500 MG Lidocaine HCl 10 ml ONCE ONCE TOP 12/07/22 20:45 12/07/22 20:46 DC 12/07/22 20:57 10 ML Vital Signs/I&O 12/07/22 20:06 Temp 36.6 Pulse 79 Resp 16 B/P (MAP) 144/110 (121) Pulse Ox 97 O2 Delivery Room Air Capillary Refill : Less Than 3 Seconds Blood Pressure Mean: 121 Progress Note : Progress Note Patient seen and evaluated, during exam he had to use the urinal twice, no acute distress. Based on exam and symptoms, urinalysis ordered. Bladder scan showed over 300 mils of urine after urination. Patient states that he is willing to get a Hayes catheter. This has been ordered. 2052 urinalysis reviewed. It shows 1+ protein, 3+ glucose, 1+ leukocytes, 2+ R BCs, 50-100 WBCs, trace bacteria. First dose of Keflex ordered. 2105 Hayes catheter was placed by nursing staff. Will discharge with leg bag. Patient instructed to follow-up with urology. Will write prescription for Keflex. Patient also informed to take a stool softener [id number] because his constipation may be contributing to his urinary retention. Patient stable for discharge. Discharge instructions and return precautions provided. Departure Impression Primary Impression: Urinary tract infection Additional Impression: Hayes catheter in place Disposition: HOME, SELF-CARE Condition: Stable Departure-Patient Inst. Decision time for Depature: 21:08 Ref[place]: [facility] [place] Primary Care Physician Angela GARCIA MD Patient Instructions: How to Care for Your Hayes Catheter Add. Discharge Instructions: Complete full course of antibiotic as prescribed. Call Dr. Garcia's office on Friday to schedule follow-up appointment. Return for fever, no urine output in Hayes catheter after several hours, severe abdominal pain, or any other new, concerning, or worsening symptoms. All discharge instructions reviewed with patient and/or family. Voiced understanding. Scripts Cefuroxime Axetil (Cefuroxime) 500 Mg Tablet 500 MG PO BID, #20 TAB 0 Refills Prov: ROMINA CABRAL APRN 12/07/22 ROMINA CABRAL APRN Dec 07, 2022 20:48
[2022-12-07] MEDS ORDERED: CEPHALEXIN 250 MG CAPSULE PO ONE (21:00)
[2022-12-07] MEDS ORDERED: CEFU500T63 PO (21:11)
[2022-12-07 21:20] VITALS: BP 131/92
== END 2022-12-07 21:21 | disposition home or self-care (01) ==
LOC: EDUNIT# 20:03 → ER 20:05
DX: N39.0 Urinary tract infection, site not specified (principal); Z28.310 Unvaccinated for COVID-19
CPT/HCPCS: 51702; 81000; 87088

== ENCOUNTER 2022-12-20 15:17 | Inpatient (IN) | payer MEDICARE ==
[~2022-12-20] VITALS: Ht 179.3 cm; Wt 58.2 kg
[~2022-12-20 15:17] MED LIST changes: -ALBU8.5H6; +ALBU8.5H6 IH
--- NOTE | 2022-12-20 15:41 | ED Lower Extremity ---
General Chief Complaint: Lower Extremity Stated Complaint: FALL/LEFT LEG INJURY Source: patient Exam Limitations: no limitations (QING GUERIN DO) History of Present Illness Date Seen by Provider: Dec 20, 2022 Time Seen by Provider: 15:38 Initial Comments Very pleasant alert and oriented male 67 years old presents to emergency department with family member for inability to use left leg. States he fell last night onto his left hip. Patient denies pain but states he cannot use his leg. He has a chronic indwelling Miranda catheter and complains more about pain around the catheter site the last time it was changed was 2 weeks ago today. He does have dry excoriated skin at the head of his penis and around the urethral meatus as well as on the scrotum. It is red and irritated consistent more with dryness or yeast infection. Patient states he feels that he has a urinary tract infection as this is typically how it presents to him. Denies fever no nausea vomiting no constipation or diarrhea no other complaints he is alert and oriented. Onset: yesterday Severity: moderate Pain/Injury Location: left hip Method of Injury: fell (QING GUERIN DO) Allergies and Home Medications Allergies Coded Allergies: morphine (Unverified Allergy, Mild, Itching, 03/07/22) Uncoded Allergies: codine (Allergy, Mild, Itching, 11/07/21) Patient Home Medication List Home Medication List Reviewed: Yes (QING GUERIN DO) Albuterol Sulfate (Ventolin Hfa) Unknown Strength Hfa.aer.ad, Unknown Dose, (Reported) Entered as Reported by: GREGORY ESQUIVEL on 03/07/22 1138 Amlodipine Besylate (Amlodipine Besylate) 5 Mg Tablet, 5 MG PO DAILY, (Reported) Entered as Reported by: GREGORY ESQUIVEL on 03/07/22 1138 Aspirin (Aspirin) 81 Mg Tab.chew, 81 MG PO DAILY, (Reported) Entered as Reported by: GREGORY ESQUIVEL on 03/07/22 1138 Atorvastatin Calcium (Atorvastatin Calcium) 40 Mg Tablet, 40 MG PO DAILY, (Reported) Entered as Reported by: JOAO BAEZA on 03/12/22 1019 Budesonide/Formoterol Fumarate (Symbicort 160-4.5 Mcg Inhaler) 160 Mcg-4.5 Mcg/Actuation Hfa.aer.ad, 2 PUFF IH BID, (Reported) Entered as Reported by: GREGORY ESQUIVEL on 03/07/22 1138 Cefdinir (Cefdinir) 300 Mg Capsule, 300 MG PO BID Prescribed by: BASHIR FLANNERY on 10/01/22 194 Cefuroxime Axetil (Cefuroxime) 500 Mg Tablet, 500 MG PO BID Prescribed by: Romina Villafana on 05/30/22 1301 Cefuroxime Axetil (Cefuroxime) 500 Mg Tablet, 500 MG PO BID Prescribed by: Romina Villafana on 12/07/22 211 Cephalexin (Cephalexin) 500 Mg Tablet, 500 MG PO BID Prescribed by: RADHA EID on 07/23/22 182 Cephalexin (Cephalexin) 500 Mg Tablet, 500 MG PO TID Prescribed by: RADHA EID on 11/18/22 191 Cetirizine HCl (Cetirizine HCl) 10 Mg Tablet, 10 MG PO DAILY, (Reported) Entered as Reported by: JOAO BAEZA on 03/12/22 1019 Cyclobenzaprine HCl (Cyclobenzaprine HCl) 10 Mg Tablet, 10 MG PO TID Prescribed by: RADHA EID on 06/12/22 1308 Doxycycline Hyclate (Doxycycline Hyclate) 100 Mg Tablet, 100 MG PO BID Prescribed by: Qing Guerin on 12/20/22 175 Fluconazole (Diflucan) 150 Mg Tablet, 150 MG PO DAILY Prescribed by: RADHA EID on 07/23/22 1846 Fluconazole (Diflucan) 150 Mg Tablet, 150 MG PO ONCE Prescribed by: RADHA EID on 11/18/22 195 Fluoxetine HCl (Fluoxetine HCl) 10 Mg Capsule, 10 MG PO DAILY, (Reported) Entered as Reported by: JOAO BAEZA on 03/12/22 1019 Hydrocodone/Acetaminophen (Hydrocodone-Acetamin 5-325 mg) 5 Mg-325 Mg Tablet, 1 TAB PO Q4H PRN for PAIN-MODERATE (5-7) Prescribed by: RADHA EID on 06/12/22 1309 Lisinopril (Lisinopril) 40 Mg Tablet, 40 MG PO DAILY, (Reported) Entered as Reported by: GREGORY ESQUIVEL on 03/07/22 1138 Meclizine HCl (Meclizine HCl) 25 Mg Tablet, 25 MG PO Q6H PRN for DIZZINESS Prescribed by: COLE NEWTON on 05/23/222051 Melatonin/Pyridoxine (Melatonin 5 mg Tablet) 5 Mg-1 Mg Tablet, 1 EACH PO DAILY, (Reported) Entered as Reported by: JOAO BAEZA on 03/12/22 1019 Montelukast Sodium (Montelukast Sodium) 10 Mg Tablet, 10 MG PO DAILY, (Reported) Entered as Reported by: JOAO BAEZA on 03/12/22 1019 Ondansetron (Ondansetron Odt) 4 Mg Tab.rapdis, 4 MG SL Q8H PRN for NAUSEA/VOMITING Prescribed by: COLE NEWTON on 05/23/222051 Tamsulosin HCl (Flomax) 0.4 Mg Cap, 0.4 MG PO DAILY, (Reported) Entered as Reported by: JOAO BAEZA on 03/12/22 1019 Review of Systems Constitutional: no symptoms reported, see HPI EENTM: no symptoms reported Respiratory: no symptoms reported Cardiovascular: no symptoms reported Gastrointestinal: no symptoms reported Genitourinary: see HPI, dysuria, pain Musculoskeletal: see HPI, muscle weakness (Left hip) Skin: no symptoms reported Psychiatric/Neurological: No Symptoms Reported (QING GUERIN DO) All Other Systems Reviewed Negative Unless Noted: Yes (QING GUERIN DO) Past Nbwxtyr-Sjheie-Nzlmjg Hx Patient Social History Tobacco Use?: Yes Tobacco type used: Cigarettes Smoking Status: Current Everyday Smoker Substance use?: Yes Substance type: Marijuana Substance frequency: Daily Alcohol Use?: Yes Alcohol type: Beer Alcohol Frequency: Daily (JUSTIN DOWNS DO) Immunizations Up To Date First/Initial COVID19 Vaccinat: no Second COVID19 Vaccination Sriram: no Third COVID19 Vaccination Date: no (QING GUERIN DO) Seasonal Allergies Seasonal Allergies: No (QING GUERIN DO) Past Medical History Surgery/Hospitalization HX: femoral bypass, meniscus, hernia repair, HTN, RENAL STENT, GERD, DM TYPE II, HLD, COPD, TIA, URINARY RETENTION, UTI Surgeries: Yes Orthopedic Respiratory: Yes COPD Cardiac: Yes High Cholesterol, Hypertension Neurological: No Stroke, TIA Genitourinary: Yes ( 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), left ureteral stent) Kidney Stones Gastrointestinal: Yes Abdominal Hernia, Gastroesophageal Reflux Musculoskeletal: No Degenerate Disk Disease, Arthritis Endocrine: Yes Diabetes, Non-Insulin dep HEENT: No Hearing Impairment: Hard of Hearing Cancer: No What Type of Treatment Did You: Surgical Intervention Psychosocial: No Anxiety, Depression Integumentary: No Blood Disorders: No (QING GUERIN DO) Family Medical History SOCIAL HISTORY: -SMOKES AT LEAST 1 PPD -ETOH--WAS > 30 PACK / DAY, IN THE LAST YEAR DRINKS AT LEAST 12 PACK/DAY, NO HISTORY OF WITHDRAWL SYMPTOMS -DRUGS--THC DAILY PT MOVED HERE IN 2021 FROM [place] (JUSTIN DOWNS DO) Physical Exam Vital Signs Vital Signs - First Documented 12/20/22 15:33 Pulse 75 B/P (MAP) 175/127 (143) Pulse Ox 99 O2 Delivery Room Air (JUSTIN DOWNS DO) Vital Signs Capillary Refill : (QING GUERIN DO) Height, Weight, BMI Height: '" Weight: lbs. oz. kg; 18.00 BMI Method: (QING GUERIN [employer]) General Appearance: WD/WN, no apparent distress, other (UNKEMPT) HEENT: other (POOR DENTITION) Cardiovascular: regular rate, rhythm Respiratory: normal breath sounds Gastrointestinal: non tender, soft Back: no CVA tenderness Neurologic/Tendon: normal sensation, normal motor functions, normal tendon functions, other (BUT IS UNABLE TO STAND ON LEFT LEG. ) Neurologic/Psychiatric: no motor/sensory deficits, alert, normal mood/affect, oriented x 3 (BUT VERY POOR MEMORY) Skin: normal color, warm/dry; No rash (JUSTIN DOWNS [employer] ) Progress/Results/Core Measures Results/Orders Lab Results Laboratory Tests Test 12/20/22 16:17 12/20/22 18:35 Range/Units Urine Color YELLOW Urine Clarity CLEAR Urine pH 7.0 5-9 Urine Specific [place] 1.015 L 1.016-1.022 Urine Protein 2+ H NEGATIVE Urine Glucose (UA) 3+ H NEGATIVE Urine Ketones NEGATIVE NEGATIVE Urine Nitrite NEGATIVE NEGATIVE Urine Bilirubin NEGATIVE NEGATIVE Urine Urobilinogen 0.2 < = 1.0 MG/DL Urine Leukocyte Esterase TRACE H NEGATIVE Urine RBC (Auto) 2+ H NEGATIVE Urine RBC 25-50 H /HPF Urine WBC 5-10 H /HPF Urine Squamous Epithelial Cells NONE /HPF Urine Crystals NONE /LPF Urine Bacteria TRACE /HPF Urine Casts NONE /LPF Urine Mucus NEGATIVE /LPF Urine Other TRANS EPI RARE /HPF Urine Culture Indicated NO Urine Opiates Screen NEGATIVE NEGATIVE Urine Oxycodone Screen NEGATIVE NEGATIVE Urine Methadone Screen NEGATIVE NEGATIVE Urine Propoxyphene Screen NA NEGATIVE Urine Barbiturates Screen NEGATIVE NEGATIVE Ur Tricyclic Antidepressants Screen NEGATIVE NEGATIVE Urine Phencyclidine Screen NEGATIVE NEGATIVE Urine Amphetamines Screen NEGATIVE NEGATIVE Urine Methamphetamines Screen NEGATIVE NEGATIVE Urine Benzodiazepines Screen NEGATIVE NEGATIVE Urine Cocaine Screen NEGATIVE NEGATIVE Urine Cannabinoids Screen POSITIVE H NEGATIVE White Blood Count 9.4 4.3-11.0 10^3/uL Red Blood Count 4.54 4.30-5.52 10^6/uL Hemoglobin 14.6 13.3-17.7 g/dL Hematocrit 42 40-54 % Mean Corpuscular Volume 93 80-99 fL Mean Corpuscular Hemoglobin 32 25-34 pg Mean Corpuscular Hemoglobin Concent 34 32-36 g/dL Red Cell Distribution Width 13.2 10.0-14.5 % Platelet Count 217 130-400 10^3/uL Mean Platelet Volume 10.1 9.0-12.2 fL Immature Granulocyte % (Auto) 0 % Neutrophils (%) (Auto) 80 H 42-75 % Lymphocytes (%) (Auto) 12 12-44 % Monocytes (%) (Auto) 7 0-12 % Eosinophils (%) (Auto) 1 0-10 % Basophils (%) (Auto) 0 0-10 % Neutrophils # (Auto) 7.5 1.8-7.8 10^3/uL Lymphocytes # (Auto) 1.1 1.0-4.0 10^3/uL Monocytes # (Auto) 0.6 0.0-1.0 10^3/uL Eosinophils # (Auto) 0.1 0.0-0.3 10^3/uL Basophils # (Auto) 0.0 0.0-0.1 10^3/uL Immature Granulocyte # (Auto) 0.0 0.0-0.1 10^3/uL Sodium Level 134 L 135-145 MMOL/L Potassium Level 4.1 3.6-5.0 MMOL/L Chloride Level 102 98-107 MMOL/L Carbon Dioxide Level 23 21-32 MMOL/L Anion Gap 9 5-14 MMOL/L Blood Urea Nitrogen 13 7-18 MG/DL Creatinine 0.76 0.60-1.30 MG/DL Estimat Glomerular Filtration Rate 97 BUN/Creatinine Ratio 17 Glucose Level 346 H 70-105 MG/DL Calcium Level 9.8 8.5-10.1 MG/DL Corrected Calcium 10.0 8.5-10.1 MG/DL Magnesium Level 2.0 1.6-2.4 MG/DL Total Bilirubin 0.7 0.1-1.0 MG/DL Aspartate Amino Transf (AST/SGOT) 11 5-34 U/L Alanine Aminotransferase (ALT/SGPT) 10 0-55 U/L Alkaline Phosphatase 75 40-136 U/L Total Protein 6.5 6.4-8.2 GM/DL Albumin 3.7 3.2-4.5 GM/DL Serum Alcohol < 10 <10 MG/DL (JUSTIN DOWNS DO) My Orders Orders - JUSTIN DOWNS DO Ed Iv/Invasive Line Start (12/20/22 18:12) Ekg Tracing (12/20/22 18:12) Monitor-Rhythm Ecg Trace Only (12/20/22 18:12) Cbc And Automated Diff (12/20/22 18:12) Comprehensive Metabolic Panel (12/20/22 18:12) Magnesium (12/20/22 18:12) Alcohol (12/20/22 18:50) Drug Screen Stat (Urine) (12/20/22 18:50) Cefepime Injection (Cefepime Injection) (12/20/22 19:00) Ed Iv/Invasive Line Start (12/20/22 19:01) Ns Iv 1000 Ml (Ns Iv 1000 Ml) (12/20/22 19:15) Ns Iv 1000 Ml (Ns Iv 1000 Ml) (12/20/22 19:03) Ed Admission (Communication) (12/20/22 19:19) (JUSTIN DOWNS DO) Medications Given in ED Current Medications Medications Dose Ordered Sig/Gadiel Route Start Time Stop Time Status Last Admin Dose Admin Cefepime HCl 1000 mg/Sodium Chloride 50 ml @ 100 mls/hr ONCE ONCE IV 12/20/22 19:00 12/20/22 19:29 DC 12/20/22 19:04 100 MLS/HR Lidocaine HCl 10 ml STK-MED ONCE .ROUTE 12/20/22 15:49 12/20/22 15:52 DC 12/20/22 15:58 10 ML (JUSTIN DOWNS DO) Vital Signs/I&O 12/20/22 15:33 Pulse 75 B/P (MAP) 175/127 (143) Pulse Ox 99 O2 Delivery Room Air (JUSTIN DOWNS DO) Progress Progress Note : Time: 15:40 Progress Note Patient is alert and oriented. He is concerned as he is not able to use his left leg he can pick it up at the bed I can take it through passive range of motion without pain or clicks. He is more concerned about pain around his urethral meatus and the head of his penis where his chronic indwelling catheter is. The skin does appear dry and erythematous may be yeast infection as well. Discussed pelvis and left hip x-ray as family members concerned for his hip as he is unable to bear weight on this which is new since his fall last night. We will also change out his Miranda's catheter as it has been in place for 2 weeks and he is concerned that it is infected. X-ray of hip and pelvis are negative. Nystatin placed on groin area with relief the Miranda catheter was changed and urinalysis sent shows trace leukocyte esterase no indication for culture however I will place him on doxycycline for 5 days have him follow-up with primary care next week. Patient agrees. 180 discussed results with patient and family member and discharge. Patient seems pleased with this but family members concerned because patient cannot move his left lower extremity. Patient denies pain but then agrees that he cannot walk on this extremity and he does live at home alone. He then states that he has a history of bulging disks in his lumbar spine he does not have any pain. We will hold off on discharge and obtain a CT of his lumbar spine. However patient is unable to ambulate or care for himself and nobody can stay with him may have to consider admission versus transfer as there is no neuro spine available here. Family member agrees with this. Report given to oncoming physician (QING GUERIN DO) Progress Note : Progress Note 1800--ASSUMED CARE FROM DR. GUERIN. CT AND LABS PENDING PT HERE 12/07/22 FOR URINARY RETENTION, AND DX WITH UTI--GIVEN RX FOR KEFLEX. CULTURE GREW OUT YEAST PT LIVES ALONE, DAUGHTER IS DPOA. PT WITH POOR MEMORY, AND WORSE FOR THE LAST COUPLE OF WEEKS. SHE STATES SHE DOES NOT KNOW WHEN HE LAST TOOK ANY OF HIS MEDICATIONS, SHE KNOWS FOR CERTAIN THAT HE HAS NOT HAD ANY MEDICATIONS TODAY OR LAST NIGHT. SHE STATES SHE MOVED HIM HERE FROM [place] A YEAR AGO. DISCUSSED TEST RESULTS, NEED FOR ADMIT AND PT AND DAUGHTER ARE AGREEABLE TO PLAN. GIVEN: -IV FLUIDS -CEFEPIME FOR UTI LABS: -CBC NORMAL -CMP WITH GLUCOSE 346, OTHERWISE NORMAL -UA WITH 5-10 WBC, 25-50 RBC, TRACE LEUKOCYTES, TRACE BACTERIA -ETOH NEGATIVE -UDS + THC XRAYS OF PELVIS AND LEFT HIP--NO FRACTURE CT LUMBAR SPINE--NO FRACTURE, CHRONIC DEGENERATIVE CHANGES NO DETERIORATION IN PT'S CONDITION DURING ER STAY REVIEWED PRIOR RECORDS--MULTIPLE ER VISITS--1 ER VISITS, FOR VARIOUS COMPLAINTS, WELL OUTPATIENT PROCEDURES. (JUSTIN DOWNS DO) Initial ECG Impression Date: Dec 20, 2022 Initial ECG Impression Time: 18:31 Initial ECG Rate: 66 Initial ECG Rhythm: Normal Sinus Initial ECG Intervals PA 180 QRS 90 QT/QTC 377/390 Initial ECG Impression: Nonspecific Changes Initial ECG Comparisson: Unchanged Comment INTERPRETED BY ME (JUSTIN DOWNS DO) Diagnostic Imaging Diagonstic Imaging: Xray (Hip negative) (QING GUERIN DO) Comments XRAYS PELVIS AND LEFT HIP--PER RADIOLOGIST REPORT AT 1839 FINDINGS: There is no acute fracture or dislocation of the pelvis and left hip. Alignment is anatomic. The imaged joint spaces are preserved. No focal osseous lesions. There is partial visualization of the double-J ureteral stent on the left. IMPRESSION: 1. No acute fracture or dislocation of the pelvis and left hip. CT LUMBAR SPINE--PER RADIOLOGIST REPORT AT 1839 FINDINGS: Alignment is preserved. Vertebral body heights maintained. No fractures appreciated. There is mild intervertebral space narrowing with an anterior spurring at L2-L3. There is also a suspected bulging disc at this level with likely moderate central stenosis. Mild bulging disc material from L3-L4 through L5-S1 also suspected with no definite severe central narrowing appreciated. Diffuse atherosclerotic disease is seen along the aorta. There is a left ureteral stent. IMPRESSION: 1. Degenerative findings throughout the spine most pronounced at L2-L3 with multilevel bulging disc material noted causing at least moderate central stenosis at L2-L3. If there is concern for the central canal or nerve roots MRI could provide better characterization. Reviewed: Reviewed by Me (JUSTIN DOWNS DO) Departure Communication (Admissions) 1914--SPOKE WITH DR. DE LEON, HOSPITALIST FOR [facility] . ACCEPTS PT FOR ADMIT. SHE WILL DO ADMIT ORDERS (JUSTIN DOWNS DO) Impression Primary Impression: Yeast infection of the skin Additional Impressions: Fall on same level Qualified Codes: W18.30XA - Fall on same level, unspecified, initial encounter Miranda catheter in place UTI (urinary tract infection) Chronic back pain Degenerative disc disease, lumbar Left leg weakness Lumbar back pain with radiculopathy affecting left lower extremity Uncontrolled diabetes mellitus Uncontrolled hypertension Unable to care for self CHRONIC URINARY RETENTION WITH INDWELLING MIRANDA CATHETER IN PLACE Daily consumption of alcohol Cannabis abuse, daily use Cigarette smoker Disposition: HOME, SELF-CARE Condition: Stable Admissions Decision to Admit Reason: Admit from ER (General) Decision to Admit/Date: Dec 20, 2022 Time/Decision to Admit Time: 19:15 (JUSTIN DOWNS DO) Departure-Patient Inst. Referrals: ROMINA TIPTON MD,RESIDENT (PCP/Family) Primary Care Physician Patient Instructions: Yeast Infection (DC), Contusion (DC) Add. Discharge Instructions: Use the nystatin cream as instructed in the emergency department. All discharge instructions reviewed with patient and/or family. Voiced understanding. Scripts Doxycycline Hyclate (Doxycycline Hyclate) 100 Mg Tablet 100 MG PO BID for 5 Days, #10 TAB 0 Refills Prov: QING GUERIN DO 12/20/22 QING GUERIN DO Dec 20, 2022 15:41 JUSTIN DOWNS DO Dec 20, 2022 18:38
[2022-12-20] MEDS ORDERED: LIDOCAINE UROJET 2% GEL 10 ML PKG ONE (15:49)
--- NOTE | 2022-12-20 16:14 | Diagnostic Imaging Report ---
CLINICAL HISTORY: Fall. Pelvic and left leg pain. COMPARISON: 07/23/2022. TECHNIQUE: Three views of the pelvis and left hip. FINDINGS: There is no acute fracture or dislocation of the pelvis and left hip. Alignment is anatomic. The imaged joint spaces are preserved. No focal osseous lesions. There is partial visualization of the double-J ureteral stent on the left. IMPRESSION: 1. No acute fracture or dislocation of the pelvis and left hip. Dictated by: Dictated on workstation # [id number]
[2022-12-20] MEDS: NYSTATIN CREAM 30 GM TUBE TP SCH (16:27)
[2022-12-20 17:29] LABS: BACTERIA,URINE TRACE /HPF; BILIRUBIN,URINE NEGATIVE (NEGATIVE); CLARITY,URINE CLEAR; COLOR,URINE YELLOW; GLUCOSE, URINE (UA) 3+ (NEGATIVE); KETONES,URINE NEGATIVE (NEGATIVE); LEUKOCYTE ESTERASE ,URINE TRACE (NEGATIVE); NITRITE,URINE NEGATIVE (NEGATIVE); PROTEIN,URINE 2+ (NEGATIVE); RBC,URINE 25-50 /HPF; URINE OTHER TRANS EPI RARE /HPF
[2022-12-20] MEDS ORDERED: DOXY100T2 PO (17:51)
--- NOTE | 2022-12-20 18:34 | Diagnostic Imaging Report ---
PROCEDURE: CT lumbar spine without contrast. TECHNIQUE: Multiple contiguous axial images were obtained through the lumbar spine without the use of intravenous contrast. Sagittal and coronal reformations were then performed. Auto Exposure Controls were utilized during the CT exam to meet ALARA standards for radiation dose reduction. INDICATION: Left leg weakness, history of bulging disc. EXAMINATION: CT of the lumbar spine 12/20/2022. FINDINGS: Alignment is preserved. Vertebral body heights maintained. No fractures appreciated. There is mild intervertebral space narrowing with an anterior spurring at L2-L3. There is also a suspected bulging disc at this level with likely moderate central stenosis. Mild bulging disc material from L3-L4 through L5-S1 also suspected with no definite severe central narrowing appreciated. Diffuse atherosclerotic disease is seen along the aorta. There is a left ureteral stent. IMPRESSION: 1. Degenerative findings throughout the spine most pronounced at L2-L3 with multilevel bulging disc material noted causing at least moderate central stenosis at L2-L3. If there is concern for the central canal or nerve roots MRI could provide better characterization. Dictated by: Dictated on workstation # [id number]
[2022-12-20 18:48] LABS: BASOPHILS % (AUTO) 0 % (0-10); EOSINOPHILS # (AUTO) 0.1 10^3/uL (0.0-0.3); EOSINOPHILS % (AUTO) 1 % (0-10); HEMATOCRIT 42 % (40-54); HEMOGLOBIN 14.6 g/dL (13.3-17.7); LYMPHOCYTES # (AUTO) 1.1 10^3/uL (1.0-4.0); LYMPHOCYTES % (AUTO) 12 % (12-44); MEAN CORPUSCULAR HEMOGLOBIN 32 pg (25-34); MEAN CORPUSCULAR HGB CONC 34 g/dL (32-36); MEAN CORPUSCULAR VOLUME 93 fL (80-99); MEAN PLATELET VOLUME 10.1 fL (9.0-12.2); MONOCYTES # (AUTO) 0.6 10^3/uL (0.0-1.0); MONOCYTES % (AUTO) 7 % (0-12); NEUTROPHILS # (AUTO) 7.5 10^3/uL (1.8-7.8); NEUTROPHILS % (AUTO) 80 % (42-75); PLATELET COUNT 217 10^3/uL (130-400); WHITE BLOOD COUNT 9.4 10^3/uL (4.3-11.0)
[2022-12-20 18:50] LABS: ALBUMIN 3.7 GM/DL (3.2-4.5); POTASSIUM 4.1 MMOL/L (3.6-5.0)
[2022-12-20 18:51] LABS: CALCIUM 9.8 MG/DL (8.5-10.1)
[2022-12-20 18:52] LABS: TOTAL PROTEIN 6.5 GM/DL (6.4-8.2)
[2022-12-20 18:54] LABS: BILIRUBIN,TOTAL 0.7 MG/DL (0.1-1.0)
[2022-12-20 18:56] LABS: CREATININE SERUM 0.76 MG/DL (0.60-1.30)
[2022-12-20] MEDS ORDERED: CEFEPIME INJECTION 1,000 MG in NS (IVPB) 50 ML 50 ML IV ONE (19:00)
[2022-12-20] MEDS ORDERED: NS IV 1000 ML 1,000 ML ONE (19:03)
[2022-12-20] MEDS ORDERED: NS IV 1000 ML 1,000 ML IV SCH (19:15)
[2022-12-20 19:40] LABS: AMPHETAMINE SCREEN, URINE NEGATIVE (NEGATIVE); BARBITURATE SCREEN URINE NEGATIVE (NEGATIVE); CANNABINOID SCREEN, URINE POSITIVE (NEGATIVE); COCAINE SCREEN URINE NEGATIVE (NEGATIVE); METHADONE STAT NEGATIVE (NEGATIVE); OPIATE SCREEN URINE NEGATIVE (NEGATIVE); OXYCODONE STAT NEGATIVE (NEGATIVE); TRICYCLIC ANTIDEPRESSANTS SCRE NEGATIVE (NEGATIVE)
[2022-12-20 20:25] VITALS: BP 195/94
[2022-12-20 21:18] VITALS: BP 161/86
[2022-12-20] MEDS ORDERED: MILK OF MAGNESIA 400 MG/5 ML 30 ML UDC PO PRN (21:30)
[2022-12-20] MEDS ORDERED: LACTULOSE SYRUP 10GM/15ML 30ML UDC PO PRN (21:30)
[2022-12-20] MEDS ORDERED: BISACODYL 10 MG SUPPOSITORY PR PRN (21:30)
[2022-12-20] MEDS ORDERED: ONDANSETRON 4 MG ORAL DISSOLVE TABLET SL PRN (21:30)
[2022-12-20] MEDS ORDERED: ONDANSETRON 4 MG ORAL DISSOLVE TABLET PO PRN (21:30)
[2022-12-20] MEDS ORDERED: CALCIUM CARBONATE 500 MG CHEW TABLET PO PRN (21:30)
[2022-12-20] MEDS ORDERED: D5 1/2 NS 1,000 ML IV 1,000 ML IV PRN (21:30)
[2022-12-20] MEDS ORDERED: ANTACID SUSPENSION 30 ML UDC PO PRN ×2 (21:30)
[2022-12-20] MEDS ORDERED: 1/2 NS IV SOLUTION 1000 ML 1,000 ML IV PRN (21:30)
[2022-12-20] MEDS ORDERED: HYDROmorphone INJECTION 2 MG/ML VIAL IV PRN (21:30)
[2022-12-20] MEDS ORDERED: LIDOCAINE UROJET 2% GEL 10 ML PKG TOP ONE (21:30)
[2022-12-20] MEDS ORDERED: LORazepam 1 MG TABLET PO PRN (21:30)
[2022-12-20] MEDS ORDERED: ONDANSETRON INJECTION 4 MG/2 ML (SDV) IV PRN ×2 (21:30)
[2022-12-20] MEDS ORDERED: diphenhydrAMINE INJ 50 MG/ML VIAL IVP PRN (21:30)
[2022-12-20] MEDS ORDERED: ACETAMINOPHEN 325 MG TABLET PO PRN (21:30)
[2022-12-20] MEDS ORDERED: SENNA W/DOCUSATE TABLET PO PRN (21:30)
[2022-12-20] MEDS ORDERED: oxyCODONE IMMEDIATE RELEASE 5 MG TABLET PO PRN (21:30)
[2022-12-20] MEDS: NS IV 1000 ML 1,000 ML IV SCH (22:03)
[2022-12-20] MEDS ORDERED: RT-Ipratropium/Albuterol NEB 3 ML VIAL INH PRN (22:15)
[2022-12-20] MEDS ORDERED: inSUlin ASPART 1 UNIT/0.01 ML (PER UNIT) ONE (22:17)
[2022-12-20] MEDS: inSUlin ASPART 1 UNIT/0.01 ML (PER UNIT) SC SCH (22:18)
[2022-12-20] MEDS ORDERED: SENNOSIDES 8.6 MG TABLET ONE (22:44)
[2022-12-20] MEDS ORDERED: DOCUSATE SODIUM 100 MG CAPSULE PO ONE (22:44)
[2022-12-20] MEDS: SENNOSIDES 8.6 MG TABLET PO SCH (22:45)
[2022-12-20] MEDS: DOCUSATE SODIUM 100 MG CAPSULE PO SCH (22:45)
[2022-12-20] MEDS: MELATONIN 3 MG TABLET PO PRN (22:53)
[2022-12-20 22:55] VITALS: BP 168/84
[2022-12-21] MEDS: CEFEPIME INJECTION 1,000 MG in NS (IVPB) 50 ML 50 ML IV SCH ×4 (01:28→19:31)
[2022-12-21] MEDS ORDERED: FLUO20TA28 PO (03:10)
[2022-12-21] MEDS ORDERED: PANT40TA52 PO (03:43)
[2022-12-21] MEDS ORDERED: [UNRECOGNIZED DRUG - CODE] NSEACH (03:47)
[2022-12-21] MEDS ORDERED: EMPA25TA PO (03:47)
[2022-12-21] MEDS ORDERED: FINA5TAB6 PO (03:47)
[2022-12-21] MEDS ORDERED: TIOT18CA2 IH (03:49)
[2022-12-21 04:10] VITALS: BP 165/89
[2022-12-21 05:20] LABS: BASOPHILS % (AUTO) 1 % (0-10); EOSINOPHILS # (AUTO) 0.2 10^3/uL (0.0-0.3); EOSINOPHILS % (AUTO) 2 % (0-10); HEMATOCRIT 38 % (40-54); HEMOGLOBIN 12.8 g/dL (13.3-17.7); LYMPHOCYTES # (AUTO) 1.3 10^3/uL (1.0-4.0); LYMPHOCYTES % (AUTO) 18 % (12-44); MEAN CORPUSCULAR HEMOGLOBIN 32 pg (25-34); MEAN CORPUSCULAR HGB CONC 34 g/dL (32-36); MEAN CORPUSCULAR VOLUME 94 fL (80-99); MEAN PLATELET VOLUME 10.3 fL (9.0-12.2); MONOCYTES # (AUTO) 0.6 10^3/uL (0.0-1.0); MONOCYTES % (AUTO) 8 % (0-12); NEUTROPHILS # (AUTO) 5.2 10^3/uL (1.8-7.8); NEUTROPHILS % (AUTO) 71 % (42-75); PLATELET COUNT 191 10^3/uL (130-400); WHITE BLOOD COUNT 7.3 10^3/uL (4.3-11.0)
--- NOTE | 2022-12-21 05:22 | History & Physical ---
HPI History of Present Illness: CC: Lower extremity weakness Patient is a 67-year-old male with past medical history of COPD, urinary retention requiring chronic catheter placement, diabetes who presented due to a ground-level fall. He states that he was getting up from a seated position and felt his left lower extremity give out and ended up falling. He presented to the ED for evaluation as he was unable to move the leg at all. In the ED, scans were negative for any fractures. However it was noted that patient had significant weakness in his left lower extremity. In addition he was noted to have an ulceration on his urethral meatus and cloudy urine. Thus a urine sample was obtained which was mildly positive for UTI. He was thus admitted for UTI treatment and left lower extremity evaluation. Source: patient Exam Limitations: no limitations Date seen by provider: Dec 21, 2022 Time Seen by Provider: 06:45 Attending Physician Romina Escobar MD,Resident PCP Admitting Physician: Masha Yepez DO Attending Physician: Masha Yepez DO Consult Date of Admission Dec 20, 2022 at 20:23 Home Medications Home Medications Reviewed patient Home Medication Reconciliation performed by pharmacy medication reconciliations surface lay out technician and/or nursing. Patients Allergies have been reviewed. Allergies Coded Allergies: morphine (Unverified Allergy, Mild, Itching, 03/07/22) Uncoded Allergies: codine (Allergy, Mild, Itching, 11/07/21) [id number]-Xkqnpe Hx Patient Social History Smoking Status: Current Everyday Smoker 2nd Hand Smoke Exposure: Yes Recent Hopitalizations: No Alcohol Use?: Yes Substance type: Marijuana Tobacco type used: Cigarettes Immunizations Up To Date Influenza Vaccine Up-to-Date: No; Not Current First/Initial COVID19 Vaccinat: no Second COVID19 Vaccination Sriram: no Third COVID19 Vaccination Date: no Family Medical History Other Significan Family Hx: SOCIAL HISTORY: -SMOKES AT LEAST 1 PPD -ETOH--WAS > 30 PACK / DAY, IN THE LAST YEAR DRINKS AT LEAST 12 PACK/DAY, NO HISTORY OF WITHDRAWL SYMPTOMS -DRUGS--THC DAILY PT MOVED HERE IN 2021 FROM [place] Review of Systems ([facility]) Constitutional: No dizziness EENTM: No blurred vision Respiratory: cough (Chronic); No dyspnea on exertion, No short of breath Cardiovascular: No chest pain, No edema, No palpitations Gastrointestinal: No abdominal pain, No constipation, No diarrhea, No nausea, No vomiting Genitourinary: see HPI, discharge; No dysuria Musculoskeletal: other (Left lower extremity pain) Skin: no symptoms reported Psychiatric/Neurological: No Symptoms Reported Reviewed Test Results Reviewed Test Results Lab Laboratory Tests 12/20/22 16:17: Urine Color YELLOW, Urine Clarity CLEAR, Urine pH 7.0, Urine Specific Hiram 1.015L, Urine Protein 2+H, Urine Glucose (UA) 3+H, Urine Ketones NEGATIVE, Urine Nitrite NEGATIVE, Urine Bilirubin NEGATIVE, Urine Urobilinogen 0.2, Urine Leukocyte Esterase TRACEH, Urine RBC (Auto) 2+H, Urine RBC 25-50H, Urine WBC 5-10H, Urine Squamous Epithelial Cells NONE, Urine Crystals NONE, Urine Bacteria TRACE, Urine Casts NONE, Urine Mucus NEGATIVE, Urine Other TRANS EPI RARE, Urine Culture Indicated NO, Urine Opiates Screen NEGATIVE, Urine Oxycodone Screen NEGATIVE, Urine Methadone Screen NEGATIVE, Urine Propoxyphene Screen NA, Urine Barbiturates Screen NEGATIVE, Ur Tricyclic Antidepressants Screen NEGATIVE, Urine Phencyclidine Screen NEGATIVE, Urine Amphetamines Screen NEGATIVE, Urine Methamphetamines Screen NEGATIVE, Urine Benzodiazepines Screen NEGATIVE, Urine Cocaine Screen NEGATIVE, Urine Cannabinoids Screen POSITIVEH 12/20/22 18:35: White Blood Count 9.4, Red Blood Count 4.54, Hemoglobin 14.6, Hematocrit 42, Mean Corpuscular Volume 93, Mean Corpuscular Hemoglobin 32, Mean Corpuscular Hemoglobin Concent 34, Red Cell Distribution Width 13.2, Platelet Count 217, Mean Platelet Volume 10.1, Immature Granulocyte % (Auto) 0, Neutrophils (%) (Auto) 80H, Lymphocytes (%) (Auto) 12, Monocytes (%) (Auto) 7, Eosinophils (%) (Auto) 1, Basophils (%) (Auto) 0, Neutrophils # (Auto) 7.5, Lymphocytes # (Auto) 1.1, Monocytes # (Auto) 0.6, Eosinophils # (Auto) 0.1, Basophils # (Auto) 0.0, Immature Granulocyte # (Auto) 0.0, Sodium Level 134L, Potassium Level 4.1, Chloride Level 102, Carbon Dioxide Level 23, Anion Gap 9, Blood Urea Nitrogen 13, Creatinine 0.76, Estimat Glomerular Filtration Rate 97, BUN/Creatinine Ratio 17, Glucose Level 346H, Mean Blood Glucose [Pending], Hemoglobin A1c [Pending], Calcium Level 9.8, Corrected Calcium 10.0, Magnesium Level 2.0, Total Bilirubin 0.7, Aspartate Amino Transf (AST/SGOT) 11, Alanine Aminotransferase (ALT/SGPT) 10, Alkaline Phosphatase 75, Total Protein 6.5, Albumin 3.7, Thyroid Stimulating Hormone (TSH) 0.98, Serum Alcohol < 10 12/20/22 22:07: Glucometer 235H 12/21/22 05:03: White Blood Count 7.3, Red Blood Count 4.03L, Hemoglobin 12.8L, Hematocrit 38L, Mean Corpuscular Volume 94, Mean Corpuscular Hemoglobin 32, Mean Corpuscular Hemoglobin Concent 34, Red Cell Distribution Width 13.2, Platelet Count 191, Mean Platelet Volume 10.3, Immature Granulocyte % (Auto) 0, Neutrophils (%) (Aut o) 71, Lymphocytes (%) (Auto) 18, Monocytes (%) (Auto) 8, Eosinophils (%) (Auto) 2, Basophils (%) (Auto) 1, Neutrophils # (Auto) 5.2, Lymphocytes # (Auto) 1.3, Monocytes # (Auto) 0.6, Eosinophils # (Auto) 0.2, Basophils # (Auto) 0.0, Immature Granulocyte # (Auto) 0.0, Sodium Level 138, Potassium Level 4.0, Chloride Level 107, Carbon Dioxide Level 23, Anion Gap 8, Blood Urea Nitrogen 14, Creatinine 0.73, Estimat Glomerular Filtration Rate 98, BUN/Creatinine Ratio 19, Glucose Level 200H, Calcium Level 9.0, Corrected Calcium 9.7, Total Bilirubin 0.6, Aspartate Amino Transf (AST/SGOT) 9, Alanine Aminotransferase (AL T/SGPT) 7, Alkaline Phosphatase 58, Total Protein 5.2L, Albumin 3.1L 12/21/22 05:06: Glucometer 195H Radiology Hip/spine x-ray (12/20/2022): IMPRESSION: 1. No acute fracture or dislocation of the pelvis and left hip. Lumbar spine CT (12/20/2022): IMPRESSION: 1. Degenerative findings throughout the spine most pronounced at L2-L3 with multilevel bulging disc material noted causing at least moderate central stenosis at L2-L3. If there is concern for the central canal or nerve roots MRI could provide better characterization. Physical Exam-([facility]) Physical Exam Vital Signs VS - Last 72 Hours, by Label 12/20/22 12/20/22 12/20/22 12/20/22 15:33 20:20 20:25 20:25 Temp 37.0 Pulse 75 62 69 Resp 20 B/P (MAP) 175/127 (143) 154/86 195/94 (127) Pulse Ox 99 98 95 95 O2 Delivery Room Air Room Air Room Air Room Air 12/20/22 12/20/22 12/20/22 12/20/22 21:18 21:51 21:57 22:02 Pulse 71 67 B/P (MAP) 161/86 (111) Pulse Ox 93 O2 Delivery Nasal Cannula O2 Flow Rate 2.00 FiO2 21 12/20/22 12/21/22 12/21/22 12/21/22 22:55 00:57 04:10 06:58 Temp 36.8 36.0 Pulse 74 68 67 Resp 20 20 B/P (MAP) 168/84 (112) 165/89 (114) Pulse Ox 97 100 97 O2 Delivery Nasal Cannula Nasal Cannula Nasal Cannula O2 Flow Rate 2.00 2.00 2.00 12/21/22 12/21/22 07:00 07:21 Temp 36.8 Pulse 89 80 Resp 15 B/P (MAP) 153/77 (102) Pulse Ox 98 O2 Delivery Nasal Cannula O2 Flow Rate 1.00 Capillary Refill : General Appearance: WD/WN HEENT: PERRL/EOMI Neck: non-tender, full range of motion Respiratory: chest non-tender, lungs clear, normal breath sounds, no respiratory distress, no accessory muscle use Cardiovascular: regular rate, rhythm, no edema, no murmur Gastrointestinal: normal bowel sounds, non tender, no organomegaly Genital/Rectal: other (Ulcer noted at urethral meatus, Hayes catheter in place) Back: normal inspection Extremities: other (No tenderness to palpation at left hip or left lower extremity. Patient able to bend his left knee without difficulty. Unable to lift left leg against gravity. No pain expressed with passive lifting, abduction, abduction and rotation of left leg) Neurologic/Psychiatric: alert, oriented x 3 Assessment/Plan Assessment/Plan Admission Status: Observation (1) UTI (urinary tract infection) Status: Acute Assessment & Plan: Patient presents due to a fall. Noting worsening confusion over the last couple weeks. Patient has a chronic indwelling catheter in place secondary to urinary retention. UA was mildly positive for UTI. Will empirically treat given that patient is symptomatic. Plan: Continue IV cefepime due to recent UTI treatment Follow-up urine culture (2) Yeast infection of the skin Status: Acute Assessment & Plan: Patient noted to have a yeast infection on his urethral meatus. Plan: Continue nystatin treatment (3) Uncontrolled hypertension Status: Chronic (4) Fall on same level Status: Acute Assessment & Plan: Patient presents due to a fall with inability to bear weight on left lower extremity. Hip and pelvis x-ray was negative. CT spine was done which was notable for degenerative findings most significant at the L2-L3 with moderate stenosis. Plan: PT/OT evaluation Consider physical therapy and possible Ortho referral in the outpatient Qualifiers: Qualified Codes: W18.30XA - Fall on same level, unspecified, initial encounter (5) Left leg weakness Status: Acute Assessment & Plan: See problem above (6) Cannabis abuse, daily use Status: Chronic Assessment & Plan: UDS was positive for cannabis. (7) Uncontrolled diabetes mellitus Status: Chronic Assessment & Plan: Initial glucose elevated to 346. Patient notes he is on metformin at home. Plan: Sliding scale insulin Hold metformin for now Follow-up A1c (8) Daily consumption of alcohol Status: Acute Assessment & Plan: Patient is a daily drinker of alcohol, drinks a 12 pack/day. Alcohol level in the ED was negative. Plan: Monitor for alcohol withdrawal, CIWA protocol (9) COPD (chronic obstructive pulmonary disease) Status: Chronic Assessment & Plan: Patient has COPD, is also a smoker. On 2.5 L nasal cannula at home. Plan: Continue oxygen at home level Restarted home medications Encourage smoking cessation MICHAEL CAREY MD, RESIDENT Dec 21, 2022 05:22
[2022-12-21 05:44] LABS: ALBUMIN 3.1 GM/DL (3.2-4.5); BILIRUBIN,TOTAL 0.6 MG/DL (0.1-1.0); CREATININE SERUM 0.73 MG/DL (0.60-1.30); TOTAL PROTEIN 5.2 GM/DL (6.4-8.2)
[2022-12-21] MEDS: inSUlin ASPART 1 UNIT/0.01 ML (PER UNIT) SC SCH ×4 (06:09→21:22)
[2022-12-21] MEDS: THIAMINE 100 MG (VITAMIN B-1) TAB PO SCH (06:09)
[2022-12-21] MEDS: THERAPEUTIC MULTIVITAMIN W/MINERALS TABLET PO SCH (06:09)
[2022-12-21] MEDS: RT-Ipratropium/Albuterol NEB 3 ML VIAL INH SCH ×2 (06:54→21:40)
[2022-12-21] MEDS ORDERED: IPRATROPIUM INH SCH (07:00)
[2022-12-21 07:21] VITALS: BP 153/77
--- NOTE | 2022-12-21 08:39 | History & Physical-Hospitalist ---
MICHAEL CAREY MD, RESIDENT 12/21/22 0839: History of Present Illness HPI/Chief Complaint CC: Lower extremity weakness Patient is a 67-year-old male with past medical history of COPD, urinary retention requiring chronic catheter placement, diabetes who presented due to a ground-level fall. He states that he was getting up from a seated position and felt his left lower extremity give out and ended up falling. He presented to the ED for evaluation as he was unable to move the leg at all. In the ED, scans were negative for any fractures. However it was noted that patient had significant weakness in his left lower extremity. In addition he was noted to have an ulceration on his urethral meatus and cloudy urine. Thus a urine sample was obtained which was mildly positive for UTI. He was thus admitted for UTI treatment and left lower extremity evaluation. Source: patient Exam Limitations: no limitations Date Seen 12/21/22 Time Seen by a Provider: 06:45 Attending Physician Romina Escobar MD,Resident PCP Admitting Physician: Masha De Leon DO Attending Physician: Masha De Leon DO Referring Physician Date of Admission Dec 20, 2022 at 20:23 Home Medications & Allergies Home Medications Reviewed patient Home Medication Reconciliation performed by pharmacy medication reconciliations biometric fingerprinting technician and/or nursing. Patients Allergies have been reviewed. Allergies Allergies Coded Allergies morphine (Unverified Allergy, Mild, Itching, 03/07/22) Uncoded Allergies codine ( Allergy, Mild, Itching, 11/07/21) Past Urzgoul-Uzjxxy-Tatccu Hx Patient Social History Tobacco Use?: Yes Tobacco type used: Cigarettes Smoking Status: Current Everyday Smoker Smokeless Tobacco Frequency: Current Everyday User Substance use?: Yes Substance type: Marijuana Substance frequency: Daily Alcohol Use?: Yes Alcohol type: Beer Alcohol Frequency: Daily Pt feels they are or have been: No Immunizations Up To Date First/Initial COVID19 Vaccinat: no Second COVID19 Vaccination Sriram: no Tetanus Booster (TDap): Unknown Seasonal Allergies Seasonal Allergies: No Current Status Advance Directives: No Primary Language: Bolivian Preferred Spoken Language: Bolivian Is interpretation needed?: No Sensory deficits: Hearing impairment Implanted or Applied Medical D: Heart mechanical device, Stents Past Medical History Surgeries: Orthopedic COPD High Cholesterol, Hypertension Stroke, TIA Kidney Stones Abdominal Hernia, Gastroesophageal Reflux Degenerate Disk Disease, Arthritis Diabetes, Non-Insulin dep Hearing Impairment: Hard of Hearing What Type of Treatment Did You: Surgical Intervention Anxiety, Depression Blood Disorders: No Family Medical History SOCIAL HISTORY: -SMOKES AT LEAST 1 PPD -ETOH--WAS > 30 PACK / DAY, IN THE LAST YEAR DRINKS AT LEAST 12 PACK/DAY, NO HISTORY OF WITHDRAWL SYMPTOMS -DRUGS--THC DAILY PT MOVED HERE IN 2021 FROM [place] Review of Systems Constitutional: weakness EENTM: No no symptoms reported Respiratory: cough (chronic); No short of breath, No wheezing Cardiovascular: No chest pain, No edema, No palpitations Gastrointestinal: No abdominal pain, No constipation, No diarrhea, No nausea, No vomiting Genitourinary: discharge; No dysuria Musculoskeletal: other (left leg pain) Skin: No no symptoms reported Physical Exam Physical Exam Vital Signs Vital Signs - First Documented 12/20/22 12/20/22 12/20/22 15:33 21:51 21:57 Pulse 75 B/P (MAP) 175/127 (143) Pulse Ox 99 O2 Delivery Room Air O2 Flow Rate 2.00 FiO2 21 Capillary Refill : Height, Weight, BMI Height: '" Weight: lbs. oz. kg; 18.10 BMI Method: General Appearance: No Apparent Distress HEENT: PERRL/EOMI Neck: Full Range of Motion, Normal Inspection Respiratory: Chest Non Tender, Lungs Clear, Normal Breath Sounds, No Accessory Muscle Use, No Respiratory Distress Cardiovascular: Regular Rate, Rhythm, No Edema, No Murmur Gastrointestinal: Normal Bowel Sounds, Non Tender, Soft Genital/Rectal: Other (ulcer noted at urethral meatus) Extremity: Other (No tenderness to palpation at left hip or left lower extremity. Patient able to bend his left knee without difficulty. Unable to lift left leg against gravity. No pain expressed with passive lifting, abduction, abduction and rotation of left leg) Neurologic/Psychiatric: Alert, Oriented x3 Skin: Warm/Dry Results Results/Procedures Labs Laboratory Tests 12/20/22 18:35 12/21/22 05:03 Patient resulted labs reviewed. Imaging: Reviewed Imaging Films Imaging Hip/spine x-ray (12/20/2022): IMPRESSION: 1. No acute fracture or dislocation of the pelvis and left hip. Lumbar spine CT (12/20/2022): IMPRESSION: 1. Degenerative findings throughout the spine most pronounced at L2-L3 with multilevel bulging disc material noted causing at least moderate central stenosis at L2-L3. If there is concern for the central canal or nerve roots MRI could provide better characterization. Assessment/Plan Admission Diagnosis UTI Admission Status: Observation Diagnosis/Problems Diagnosis/Problems (1) UTI (urinary tract infection) Status: Acute Assessment & Plan: Patient presents due to a fall. Noting worsening confusion over the last couple weeks. Patient has a chronic indwelling catheter in place secondary to urinary retention. UA was mildly positive for UTI. Will empirically treat given that patient is symptomatic. Plan: Continue IV cefepime due to recent UTI treatment Follow-up urine culture (2) Fall on same level Status: Acute Assessment & Plan: Patient presents due to a fall with inability to bear weight on left lower extremity. Hip and pelvis x-ray was negative. CT spine was done which was notable for degenerative findings most significant at the L2-L3 with moderate stenosis. Plan: PT/OT evaluation Consider physical therapy and possible Ortho referral in the outpatient Qualifiers: Encounter type: initial encounter Qualified Codes: W18.30XA - Fall on same level, unspecified, initial encounter (3) Left leg weakness Status: Acute Assessment & Plan: See problem above (4) Yeast infection of the skin Status: Acute Assessment & Plan: Patient noted to have a yeast infection on his urethral meatus. Plan: Continue nystatin treatment (5) COPD (chronic obstructive pulmonary disease) Status: Chronic Assessment & Plan: Patient has COPD, is also a smoker. On 2.5 L nasal cannula at home. Plan: Continue oxygen at home level Restarted home medications Encourage smoking cessation (6) Uncontrolled diabetes mellitus Status: Chronic Assessment & Plan: (2) Yeast infection of the skin Status: Acute Assessment & Plan: Patient noted to have a yeast infection on his urethral meatus. Plan: Continue nystatin treatment (3) Uncontrolled hypertension Status: Acute (4) Fall on same level Initial glucose elevated to 346. Patient notes he is on metformin at home. Plan: Sliding scale insulin Hold metformin for now Follow-up A1c (7) Cannabis abuse, daily use Status: Chronic Assessment & Plan: UDS was positive for cannabis. (8) Uncontrolled hypertension Status: Chronic Assessment & Plan: Restarted home lisinopril, kidney function stable. (9) Daily consumption of alcohol Status: Acute Assessment & Plan: (2) Yeast infection of the skin Status: Acute Assessment & Plan: Patient noted to have a yeast infection on his urethral meatus. Plan: Continue nystatin treatment (3) Uncontrolled hypertension Status: Acute (4) Fall on same level Patient is a daily drinker of alcohol, drinks a 12 pack/day. Alcohol level in the ED was negative. Scoring 0 on CIWA thus far. Plan: Monitor for alcohol withdrawal, CIWA protocol MASHA DE LEON DO 12/21/22 4566: History of Present Illness HPI/Chief Complaint Chief complaint: Inability to walk with urinary retention and UTI HPI: This is a 67-year-old male who presented to the ER with severe pain in back and having difficulty ambulating. patient was found to have UTI placed on empiric cefepime and Diflucan since he had a yeast UTI recently. We will evalua te what his needs are with therapy. Source: patient, old records Exam Limitations: no limitations Past Zkmrgzh-Glrkja-Nfcyaq Hx Patient Social History Marrital Status: single Employed/Student: unemployed, retired Smoking Status: Former Smoker Past Medical History Benign Prostatic Hyperpl, Bladder Infection Review of Systems Constitutional: see HPI, weakness Physical Exam Physical Exam General Appearance: No Apparent Distress, Chronically ill Eyes: Right Eye Normal Inspection, Right Eye PERRL HEENT: PERRL/EOMI, Normal ENT Inspection, Pharynx Normal, Moist Mucous Membranes Neck: Full Range of Motion, Normal Inspection, Non Tender Respiratory: Chest Non Tender, Lungs Clear, Normal Breath Sounds, No Accessory Muscle Use, No Respiratory Distress Cardiovascular: Regular Rate, Rhythm, No Edema, No Gallop, No JVD, No Murmur, Normal Peripheral Pulses Gastrointestinal: Normal Bowel Sounds, No Organomegaly, No Pulsatile Mass, Non Tender, Soft Back: Normal Inspection, No CVA Tenderness, No Vertebral Tenderness Extremity: Normal Capillary Refill, Normal Inspection, Normal Range of Motion, Non Tender, No Calf Tenderness, No Pedal Edema Neurologic/Psychiatric: Alert, Oriented x3, Abnormal Gait, Depressed Affect, Motor Weakness (Generalized) Skin: Normal Color, Warm/Dry Lymphatic: No Adenopathy Assessment/Plan Admission Diagnosis Assessment: UTI Unable to ambulate Severe back pain CT scan normal Plan: IV antibiotics IV Diflucan Home meds I personally performed the weinstein portions of the visit, discussed case with resident and concur with resident documentation of history, physical exam, assessment and treatment plan unless otherwise noted. Admission Status: Inpatient Order (span 2 midnights) Reason for Inpatient Admission: Unable ambulate with UTI with urinary retention MICHAEL Carson MD, RESIDENT Dec 21, 2022 08:39 MASHA DE LEON DO Dec 21, 2022 16:46
[2022-12-21] MEDS: SENNOSIDES 8.6 MG TABLET PO SCH ×2 (08:59→19:34)
[2022-12-21] MEDS: MONTELUKAST 10 MG TABLET PO SCH (08:59)
[2022-12-21] MEDS: FINASTERIDE 5 MG TABLET PO SCH (08:59)
[2022-12-21] MEDS: DOCUSATE SODIUM 100 MG CAPSULE PO SCH ×2 (08:59→19:34)
[2022-12-21] MEDS: FOLIC ACID 1 MG TAB PO SCH (08:59)
[2022-12-21] MEDS: FLUoxetine 20 MG CAPSULE PO SCH (08:59)
[2022-12-21] MEDS: MAGNESIUM OXIDE 400 MG TABLET PO SCH ×2 (08:59→19:32)
[2022-12-21] MEDS: NYSTATIN CREAM 30 GM TUBE TP SCH ×3 (09:00→21:22)
[2022-12-21] MEDS: ENOXAPARIN 30 MG/0.3 ML SYRINGE SC SCH (09:01)
--- NOTE | 2022-12-21 09:52 | Physical Therapy Evaluation ---
PT Evaluation-General Medical Diagnosis Admission Date Dec 20, 2022 at 20:23 Medical Diagnosis: UTI Onset Date: Dec 20, 2022 Therapy Diagnosis Therapy Diagnosis: Weakness/Debility Precautions Precautions/Isolations: Standard Precautions Weight Bear Status Right Lower Extremity: Right Weight Bearing/Tolerated Left Lower Extremity: Left Weight Bearing/Tolerated Referral Physician: Dr. Yepez Reason for Referral: Evaluation/Treatment Medical History Pertinent Medical History: COPD, DM, Smoking Current History P arrieved to ED 2/2 fall at home due to left leg "giving out" Reviewed History: Yes Social History Home: Single Level Current Living Status: Alone Entry Into Home: Stairs With Railing PT Steps Into Home: 1 Prior Prior Level of Function SCALE: Activities may be completed with or without assistive devices. 6-Zanquejosj-zyrlkqg completes the activity by him/herself with no assistance from a helper. 5-Set-up or Clean-up Assistance-helper sets up or cleans up; patient completes activity. [place] assists only prior to or following the activity. 4-Supervision or Touching Assistance-helper provides verbal cues and/or touching/steadying and/or contact guard assistance as patient completes activity. Assistance may be provided throughout the activity or intermittently. 3-Partial/Moderate Assistance-helper does LESS THAN HALF the effort. [place] lifts, holds or supports trunk or limbs, but provides less than half the effort. 2-Substantial/Maximal Assistance-helper does MORE THAN HALF the effort. [place] lifts or holds trunk or limbs and provides more than half the effort. 0-Kaanqfmsd-qxvwbi does ALL the effort. Patient does none of the effort to complete the activity. Or, the assistance of 2 or more helpers is required for the patient to complete the activity. If activity was not attempted, code reason: 7-Patient Refused. 9-Not Applicable-not attempted and the patient did not perform the activity befo re the current illness, exacerbation or injury. 10-Not Attempted due to Environmental Limitations-(lack of equipment, weather re straints, etc.). 88-Not Attempted due to Medical Conditions or Safety Concerns. Bed Mobility: 6 Transfers (B,C,W/C): 6 Gait: 6 Stairs: 6 Indoor Mobility (Ambulation): Independent Stairs: Independent Prior Devices Use: Walker Prior Device Use: 4WW occasionally PT Evaluation-Current Subjective Pt asleep in room upon arrival, agreeable to PT treatment. Pt/Family Goals return home Objective Patient Orientation: Person, Place, Situation Attachments: Oxygen, IV ROM/Strength ROM Lower Extremities RLE grossly 4/5 all planes LLE hip flex: 3+/4; knee ext: <3/5; Strength Lower Extremities LLE PROM WFL: AROM decreased due to strength deficits Integumentary/Posture Integumentary refer to nursing notes Bladder Incontinence: Hayes Cath Posture Pt has increased thoracic kyphosis in standing Neuromuscular (Tone, Coordination, Reflexes) Pt has decreased coordination and ataxic step pattern with LLE. Sensory Vision: Functional Hearing: Functional Sensation Right Lower Extremit: Intact Sensation Left Lower Extremity: Impaired Sensation Lower Extremities Pt approx 50% accurate with light touch testing to LLE Transfers Sit to Lying (QC): 4 Lying to Sitting/Side of Bed(Q: 4 Sit to Stand (QC): 4 Stood at EOB x 3 for approx 1-2 minutes each time. Weight shifting onto LLE, w hich results in LLE buckling at the knee each time Gait Comments/Gait Description Able to take 5 side steps at EOB, very ataxic on the left with poor coordination and control. Balance Standing Static: Poor Standing Dynamic: Poor Special Test Comments poor standing balance due to lack of strength and control of LLE Assessment/Needs Pt is a 67 year old male who presents to the hospital following a fall. He presents with significantly decreased LLE strength and sensation which decreases his functional mobility and increases his risk of falling again. He would benefit from skilled PT to ensure safety upon DC from hospital Rehab Potential: Fair PT Intermediate Goals Intermediate Goals PT Intermediate Goals Time Frame: Jan 04, 2023 Roll Left & Right (QC): 6 Sit to Lying (QC): 6 Lying-Sitting on Side/Bed(QC): 6 Sit to Stand (QC): 6 Chair/Gab-hf-Xgikw Xfer(QC): 6 Walk 10 feet (QC): 6 Walk 50ft with 2 Turns (QC): 6 Walk 150 ft (QC): 6 1 Step (curb) (QC): 6 PT Plan Problem List Problem List: Activity Tolerance, Functional Strength, Safety, Balance, Gait, Transfer, Bed Mobility, ROM Treatment/Plan Treatment Plan: Continue Plan of Care Treatment Plan: Bed Mobility, Functional Activity Avtar, Functional Strength, Gait, Safety, Therapeutic Exercise, Transfers Treatment Duration: Jan 04, 2023 Frequency: 6 times per week Estimated Hrs Per Day: .25 hour per day Patient and/or Family Agrees t: Yes Time Time In: 920 Time Out: 940 DATE: Dec 21, 2022 Total Billed Treatment Time: 20 Total Billed Treatment 1 visit, [facility] (20') JAS TAVERA PT Dec 21, 2022 09:52
[2022-12-21 11:28] VITALS: BP 165/83
[2022-12-21] MEDS: NS IV 1000 ML 1,000 ML IV SCH (13:08)
[2022-12-21 16:09] VITALS: BP 161/76
[2022-12-21] MEDS: NICOTINE 21 MG PATCH TD SCH (16:44)
[2022-12-21] MEDS: FLUTICASONE/VILANTEROL 100/25 MCG (7 DOSES) IH SCH (16:45)
[2022-12-21] MEDS: MELATONIN 3 MG TABLET PO PRN (19:32)
[2022-12-21 20:05] VITALS: BP 157/85
[2022-12-21 23:29] VITALS: BP 150/83
[2022-12-22] VITALS (8 sets, daily range): BP systolic 123–196; BP diastolic 68–94
[2022-12-22] MEDS: CEFEPIME INJECTION 1,000 MG in NS (IVPB) 50 ML 50 ML IV SCH ×4 (02:37→19:59)
[2022-12-22 05:30] LABS: BASOPHILS % (AUTO) 1 % (0-10); EOSINOPHILS # (AUTO) 0.1 10^3/uL (0.0-0.3); EOSINOPHILS % (AUTO) 2 % (0-10); HEMATOCRIT 37 % (40-54); HEMOGLOBIN 12.3 g/dL (13.3-17.7); LYMPHOCYTES # (AUTO) 1.3 10^3/uL (1.0-4.0); LYMPHOCYTES % (AUTO) 25 % (12-44); MEAN CORPUSCULAR HEMOGLOBIN 32 pg (25-34); MEAN CORPUSCULAR HGB CONC 34 g/dL (32-36); MEAN CORPUSCULAR VOLUME 95 fL (80-99); MEAN PLATELET VOLUME 10.5 fL (9.0-12.2); MONOCYTES # (AUTO) 0.4 10^3/uL (0.0-1.0); MONOCYTES % (AUTO) 7 % (0-12); NEUTROPHILS # (AUTO) 3.2 10^3/uL (1.8-7.8); NEUTROPHILS % (AUTO) 64 % (42-75); PLATELET COUNT 185 10^3/uL (130-400)
[2022-12-22 05:54] LABS: ALBUMIN 2.7 GM/DL (3.2-4.5); BILIRUBIN,TOTAL 0.4 MG/DL (0.1-1.0); CREATININE SERUM 0.81 MG/DL (0.60-1.30); POTASSIUM 4.1 MMOL/L (3.6-5.0); TOTAL PROTEIN 5.1 GM/DL (6.4-8.2)
[2022-12-22] MEDS: NS IV 1000 ML 1,000 ML IV SCH (06:16)
[2022-12-22] MEDS: THIAMINE 100 MG (VITAMIN B-1) TAB PO SCH (06:17)
[2022-12-22] MEDS: THERAPEUTIC MULTIVITAMIN W/MINERALS TABLET PO SCH (06:17)
[2022-12-22] MEDS: inSUlin ASPART 1 UNIT/0.01 ML (PER UNIT) SC SCH ×4 (06:17→20:40)
[2022-12-22] MEDS: FLUTICASONE/VILANTEROL 100/25 MCG (7 DOSES) IH SCH (06:34)
[2022-12-22] MEDS: RT-Ipratropium/Albuterol NEB 3 ML VIAL INH SCH ×2 (06:34→20:33)
[2022-12-22] MEDS: FOLIC ACID 1 MG TAB PO SCH (08:36)
[2022-12-22] MEDS: MAGNESIUM OXIDE 400 MG TABLET PO SCH ×2 (08:36→19:59)
[2022-12-22] MEDS: DOCUSATE SODIUM 100 MG CAPSULE PO SCH ×2 (08:36→19:59)
[2022-12-22] MEDS: ENOXAPARIN 30 MG/0.3 ML SYRINGE SC SCH (08:36)
[2022-12-22] MEDS: SENNOSIDES 8.6 MG TABLET PO SCH ×2 (08:36→19:59)
[2022-12-22] MEDS: NICOTINE 21 MG PATCH TD SCH (08:36)
[2022-12-22] MEDS: FINASTERIDE 5 MG TABLET PO SCH (08:36)
[2022-12-22] MEDS: MONTELUKAST 10 MG TABLET PO SCH (08:36)
[2022-12-22] MEDS: FLUoxetine 20 MG CAPSULE PO SCH (08:36)
[2022-12-22] MEDS: PATCH REMOVAL TP SCH (08:37)
[2022-12-22] MEDS: NYSTATIN CREAM 30 GM TUBE TP SCH ×3 (08:37→19:59)
[2022-12-22] MEDS ORDERED: NICOTINE 21 MG PATCH TD SCH (09:00)
--- NOTE | 2022-12-22 10:04 | Progress Note - Hospitalist ---
Subjective HPI/CC On Admission Date Seen by Provider: Dec 22, 2022 Time Seen by Provider: 11:00 Chief complaint: Inability to walk with urinary retention and UTI HPI: This is a 67-year-old male who presented to the ER with severe pain in back and having difficulty ambulating. patient was found to have UTI placed on emp iric cefepime and Diflucan since he had a yeast UTI recently. We will evaluate what his needs are with therapy. Subjective/Events-last exam Improved status No falls Can't walk on left leg Pain controlled ARU eval tomorrow Review of Systems General: Fatigue, Malaise Musculoskeletal: leg pain Objective Exam Vital Signs Vital Signs Date Time Temp Pulse Resp B/P (MAP) Pulse Ox O2 Delivery O2 Flow Rate FiO2 12/22/22 11:35 36.2 86 15 123/68 (86) 99 Nasal Cannula 1.00 12/20/22 21:57 21 Capillary Refill : General Appearance: No Apparent Distress, WD/WN, Chronically ill Respiratory: Lungs Clear Cardiovascular: Regular Rate, Rhythm Neurologic/Psychiatric: Alert, Oriented x3 Results/Procedures Lab Laboratory Tests 12/22/22 05:18 Patient resulted labs reviewed. Imaging: Reviewed Imaging Films Assessment/Plan Assessment and Plan Assess & Plan/Chief Complaint Assessment: Unable to ambulate due to left sided myelopathy/radiculopathy Chronic disability from spinal disease UTI In-dwelling catheter due to BPH Yeast UTI recently Chronic debility Plan: Cefepime Diflucan PT OT ARU MRI tomorrow JADEN DE LEON DO Dec 22, 2022 10:04
[2022-12-22] MEDS ORDERED: ONDANSETRON 4 MG ORAL DISSOLVE TABLET SL PRN (11:30)
[2022-12-22] MEDS ORDERED: TAMSULOSIN 0.4 MG (FLOMAX) CAP PO SCH (18:00)
[2022-12-22] MEDS: cloNIDine 0.1 MG TABLET PO PRN (18:25)
[2022-12-22] MEDS ORDERED: MELATONIN PO SCH (21:00)
[2022-12-22] MEDS ORDERED: hydrALAZINE 25 MG TABLET PO PRN (21:00)
[2022-12-22] MEDS ORDERED: MELATONIN 10 MG TABLET PO SCH (21:00)
[2022-12-22] MEDS ORDERED: PYRIDOXINE PO SCH (21:00)
[2022-12-22] MEDS ORDERED: amLODIPine 5 MG TABLET PO ONE (21:00)
[2022-12-22] MEDS: MELATONIN 3 MG TABLET PO PRN (22:31)
[2022-12-22] MEDS: diphenhydrAMINE 25 MG TABLET PO PRN (22:31)
[2022-12-23] MEDS: CEFEPIME INJECTION 1,000 MG in NS (IVPB) 50 ML 50 ML IV SCH ×2 (02:32→08:34)
[2022-12-23 03:44] VITALS: BP 135/75
[2022-12-23 06:09] LABS: BASOPHILS % (AUTO) 0 % (0-10); EOSINOPHILS # (AUTO) 0.2 10^3/uL (0.0-0.3); EOSINOPHILS % (AUTO) 4 % (0-10); HEMATOCRIT 38 % (40-54); HEMOGLOBIN 12.9 g/dL (13.3-17.7); LYMPHOCYTES # (AUTO) 1.2 10^3/uL (1.0-4.0); LYMPHOCYTES % (AUTO) 26 % (12-44); MEAN CORPUSCULAR HEMOGLOBIN 32 pg (25-34); MEAN CORPUSCULAR HGB CONC 34 g/dL (32-36); MEAN CORPUSCULAR VOLUME 96 fL (80-99); MEAN PLATELET VOLUME 11.3 fL (9.0-12.2); MONOCYTES # (AUTO) 0.4 10^3/uL (0.0-1.0); MONOCYTES % (AUTO) 8 % (0-12); NEUTROPHILS # (AUTO) 2.8 10^3/uL (1.8-7.8); NEUTROPHILS % (AUTO) 61 % (42-75); PLATELET COUNT 178 10^3/uL (130-400); WHITE BLOOD COUNT 4.6 10^3/uL (4.3-11.0)
[2022-12-23] MEDS: THIAMINE 100 MG (VITAMIN B-1) TAB PO SCH (06:20)
[2022-12-23] MEDS: THERAPEUTIC MULTIVITAMIN W/MINERALS TABLET PO SCH (06:20)
[2022-12-23] MEDS: inSUlin ASPART 1 UNIT/0.01 ML (PER UNIT) SC SCH ×4 (06:23→20:54)
[2022-12-23 06:31] LABS: ALBUMIN 3.2 GM/DL (3.2-4.5); BILIRUBIN,TOTAL 0.4 MG/DL (0.1-1.0); CALCIUM 9.4 MG/DL (8.5-10.1); CREATININE SERUM 0.84 MG/DL (0.60-1.30); POTASSIUM 4.2 MMOL/L (3.6-5.0); TOTAL PROTEIN 5.4 GM/DL (6.4-8.2)
[2022-12-23 07:32] VITALS: BP 159/84
--- NOTE | 2022-12-23 07:33 | Progress Note ---
MICHAEL CAREY MD, RESIDENT 12/23/22 0733: Progress Note Assessment/Plan Date Seen by Provider: Dec 23, 2022 Time Seen by Provider: 07:30 Events since last exam Patient is a 67-year-old male with a past medical history of COPD, urinary retention chronic catheter in place and diabetes presented with left lower extremity weakness after ground-level fall. X-rays in the ED were negative for any fractures, patient was noted to have a UTI on UA. Given that he was unable to bear any weight on his left lower extremity and required UTI treatment he was ultimately admitted for further management. While in the hospital, patient was treated with cefepime for UTI treatment. He was also noted to have an ulcer on his urethral meatus which we treated with nystatin for yeast infection. UA eventually grew Gabriela albicans which will be treated with fluconazole. He is still unable to bear any weight on his left lower extremity and thus an MRI was ordered which is pending. Patient is feeling well otherwise and has no concerns. Would like to be able to ambulate at his baseline. Assessment/Plan Unable to ambulate due to left sided myelopathy/radiculopathy Chronic disability from spinal disease UTI In-dwelling catheter due to BPH Yeast UTI recently Chronic debility Plan: We will discontinue cefepime today Starting fluconazole for treatment of Gabriela in urine Continue nystatin for yeast infection on urethral meatus Follow-up MRI to evaluate left lower extremity weakness Pending MRI results, will determine whether patient is appropriate for disposition to inpatient rehab Continue PT/OT for now Continue catheter care Vitals Last set of Vitals Signs Vital Signs Date Time Temp Pulse Resp B/P (MAP) Pulse Ox O2 Delivery O2 Flow Rate FiO2 12/23/22 03:44 36.2 68 18 135/75 (95) 96 Room Air 12/22/22 16:11 2.00 12/20/22 21:57 21 I&O I&O Intake and Output 12/23/22 00:00 Intake Total 2840 ml Output Total 3000 ml Balance -160 ml Intake Oral 1740 ml IV Total 1100 ml Output Urine Total 3000 ml Labs Laboratory Tests 12/22/22 11:09: Glucometer 278H 12/22/22 16:14: Glucometer 244H 12/22/22 20:25: Glucometer 242H 12/23/22 05:13: White Blood Count 4.6, Red Blood Count 4.01L, Hemoglobin 12.9L, Hematocrit 38L, Mean Corpuscular Volume 96, Mean Corpuscular Hemoglobin 32, Mean Corpuscular Hemoglobin Concent 34, Red Cell Distribution Width 13.1, Platelet Count 178, Mean Platelet Volume 11.3, Immature Granulocyte % (Auto) 0, Neutrophils (%) (Auto) 61, Lymphocytes (%) (Auto) 26, Monocytes (%) (Auto) 8, Eosinophils (%) (Auto) 4, Basophils (%) (Auto) 0, Neutrophils # (Auto) 2.8, Lymphocytes # (Auto) 1.2, Monocytes # (Auto) 0.4, Eosinophils # (Auto) 0.2, Basophils # (Auto) 0.0, I mmature Granulocyte # (Auto) 0.0, Sodium Level 138, Potassium Level 4.2, Chloride Level 106, Carbon Dioxide Level 25, Anion Gap 7, Blood Urea Nitrogen 16, Creatinine 0.84, Estimat Glomerular Filtration Rate 94, BUN/Creatinine Ratio 19, Glucose Level 285H, Calcium Level 9.4, Corrected Calcium 10.0, Total Bilirubin 0.4, Aspartate Amino Transf (AST/SGOT) 11, Alanine Aminotransferase (ALT/SGPT) 6, Alkaline Phosphatase 55, Total Protein 5.4L, Albumin 3.2 12/23/22 06:19: Glucometer 273H Microbiology 12/20/22 Urine Culture - Final, Complete Gabriela albicans Focused Exam Respiratory: Chest Non Tender, Lungs Clear, Normal Breath Sounds, No Accessory Muscle Use, No Respiratory Distress Cardiovascular: Regular Rate, Rhythm, No Edema, No Murmur Skin: warm/dry JADEN DE LEON DO 12/24/22 0438: Progress Note Assessment/Plan Date Seen by Provider: Dec 23, 2022 Time Seen by Provider: 10:00 Events since last exam No major events MRI will be obtained Left leg is still weak Therapy shows inconsistency with performance Appears he wants to go live in [place] [facility] Assessment/Plan Severe back pain Left leg weakness Chronic back issues MICHAEL CAREY MD, RESIDENT Dec 23, 2022 07:33 JADEN DE LEON DO Dec 24, 2022 04:38
[2022-12-23] MEDS: FOLIC ACID 1 MG TAB PO SCH (08:34)
[2022-12-23] MEDS: MONTELUKAST 10 MG TABLET PO SCH (08:34)
[2022-12-23] MEDS: SENNOSIDES 8.6 MG TABLET PO SCH ×2 (08:34→20:53)
[2022-12-23] MEDS: FLUoxetine 20 MG CAPSULE PO SCH (08:34)
[2022-12-23] MEDS: amLODIPine 5 MG TABLET PO SCH (08:34)
[2022-12-23] MEDS: MAGNESIUM OXIDE 400 MG TABLET PO SCH ×2 (08:34→20:53)
[2022-12-23] MEDS: ASPIRIN 81 MG CHEWABLE TABLET PO SCH (08:34)
[2022-12-23] MEDS: PANTOPRAZOLE 40 MG TABLET PO SCH (08:35)
[2022-12-23] MEDS: ENOXAPARIN 30 MG/0.3 ML SYRINGE SC SCH (08:35)
[2022-12-23] MEDS: FINASTERIDE 5 MG TABLET PO SCH (08:35)
[2022-12-23] MEDS: NICOTINE 21 MG PATCH TD SCH (08:35)
[2022-12-23] MEDS: FLUTICASONE/VILANTEROL 100/25 MCG (7 DOSES) IH SCH (08:42)
--- NOTE | 2022-12-23 08:47 | Physician Query-Final Dx ---
MARYANNE ROSE 12/23/22 0847: Final Diagnosis Give Final Diagnosis Please give Final Diagnosis The medical record reflects the following clinical scenario: The patient, in the setting of History/Risk factors, Urinary retention with Indwelling uringary catheter on admission, Daily alcohol use, Admitted with UTI and Lumbar back pain/Radiculopathy and documentation of bowel incontinent Clinical Findings Nursing documentation of "penile pain, burning and purulent drainage" on admission, Urine culture with Gabriela Albicans, Treatment New urinary catheter placed on admission with securement device, meticulous jorge care/catheter care during admission, IV Fluconazole, and Cefepime Question: Can you specify if the UTI is due to/associated with Indwelling Urinary Catheter? Yes - UTI is due to/associated with indwelling urinary catheter No - UTI is not due to/associated with indwelling urinary catheter Other, with explanation of the clinical findings Clinically undetermined, no explanation for the clinical findings Please clarify and document your clinical opinion in the Progress Notes and Discharge Summary including the definitive and/or presumptive diagnosis, (suspected or probable), related to the above clinical findings. Please include clinical findings supporting your diagnosis. In responding to this query, please exercise your independent professional judgment. The purpose of this communication is to more accurately reflect the complexity of your patients condition. The fact that a question is asked does not imply that any particular answer is desired or expected. Thank you for timely response to this clarification. Maryanne Rose, MSN, RN Clinical Puncher [phone] [email or web address] JADEN DE LEON DO 12/23/222040: Final Diagnosis Give Final Diagnosis Yes - UTI is due to/associated with indwelling urinary catheter MARYANNE ROSE Dec 23, 2022 08:47 JADEN DE LEON DO Dec 23, 2022 20:41
[2022-12-23] MEDS ORDERED: TAMSULOSIN 0.4 MG (FLOMAX) CAP PO SCH (09:00)
[2022-12-23] MEDS ORDERED: LORATADINE 10 MG TABLET PO SCH (09:00)
[2022-12-23] MEDS: PATCH REMOVAL TP SCH (09:22)
[2022-12-23] MEDS: DOCUSATE SODIUM 100 MG CAPSULE PO SCH ×2 (09:23→20:53)
[2022-12-23] MEDS: NYSTATIN CREAM 30 GM TUBE TP SCH ×3 (09:24→20:55)
[2022-12-23] MEDS: RT-Ipratropium/Albuterol NEB 3 ML VIAL INH SCH ×2 (09:42→21:10)
[2022-12-23] MEDS ORDERED: METF-478 PO (10:39)
[2022-12-23] MEDS ORDERED: ONDA4TAB11 SL (10:39)
[2022-12-23] MEDS ORDERED: RT-ALBUINH INH (10:39)
[2022-12-23] MEDS ORDERED: MELATONIN 10 MG TABLET PO PRN (11:00)
[2022-12-23 11:11] VITALS: BP 154/81
--- NOTE | 2022-12-23 11:46 | Physical Therapy Daily Note ---
PT Daily Note-Current Subjective Patient agrees to PT. He states, "I can't move my left leg. They think I had a stroke." Pain Section J - Health Conditions 1. Rarely or not at all 2. Occasionally 3. Frequently 4. Almost constantly 8. Unable to answer Pain Effect on Sleep: 1 Pain Interference with Therapy: 1 Pain Interference w/Day-to-Day: 1 Transfers SCALE: Activities may be completed with or without assistive devices. 0-Tamxwgvdii-kffmyeb completes the activity by him/herself with no assistance from a helper. 5-Set-up or Clean-up Assistance-helper sets up or cleans up; patient completes activity. [place] assists only prior to or following the activity. 4-Supervision or Touching Assistance-helper provides verbal cues and/or touching/steadying and/or contact guard assistance as patient completes activity. Assistance may be provided throughout the activity or intermittently. 3-Partial/Moderate Assistance-helper does LESS THAN HALF the effort. [place] lifts, holds or supports trunk or limbs, but provides less than half the effort. 2-Substantial/Maximal Assistance-helper does MORE THAN HALF the effort. [place] lifts or holds trunk or limbs and provides more than half the effort. 3-Lzggjuyyv-lllyih does ALL the effort. Patient does none of the effort to complete the activity. Or, the assistance of 2 or more helpers is required for the patient to complete the activity. If activity was not attempted, code reason: 7-Patient Refused. 9-Not Applicable-not attempted and the patient did not perform the activity before the current illness, exacerbation or injury. 10-Not Attempted due to Environmental Limitations-(lack of equipment, weather restraints, etc.). 88-Not Attempted due to Medical Conditions or Safety Concerns. Lying to Sitting/Side of Bed(Q: 4 Sit to Stand (QC): 4 Chair/Daw-ds-Sggly Xfer(QC): 4 Weight Bearing Right Lower Extremity: Right Weight Bearing/Tolerated Left Lower Extremity: Left Weight Bearing/Tolerated Gait Training Distance: 150' Walk 10 feet (QC): 4 Walk 50 ft with 2 Turns(QC): 4 Walk 150 ft (QC): 4 Gait Assistive Device: FWW patient initially attempting to drag left LE during gait. PT VC's to take a longer step with patient performing without difficulty. Exercises Seated Therapy Exercises: Ankle pumps, Long arc quads Seated Reps: 15 (patient able to activate left quad with isometric contraction with knee extended) Assessment Patient did present with some inconsistences with MMT left LE. Patient, when distracted and put through testing, was able to activate left quad contraction. Patient up in recliner with needs met. PT Java Sybase Developer Goals Mcfp Goals PT Mcfp Goals Time Frame: Jan 04, 2023 Roll Left & Right (QC): 6 Sit to Lying (QC): 6 Lying-Sitting on Side/Bed(QC): 6 Sit to Stand (QC): 6 Chair/Qrr-kp-Sblmm Xfer(QC): 6 Walk 10 feet (QC): 6 Walk 50ft with 2 Turns (QC): 6 Walk 150 ft (QC): 6 1 Step (curb) (QC): 6 PT Plan Treatment/Plan Treatment Plan: Continue Plan of Care Treatment Plan: Bed Mobility, Functional Activity Avtar, Functional Strength, Gait, Safety, Therapeutic Exercise, Transfers Treatment Duration: Jan 04, 2023 Frequency: 6 times per week Estimated Hrs Per Day: .25 hour per day Patient and/or Family Agrees t: Yes Time Time In: 1117 Time Out: 1129 DATE: Dec 23, 2022 Total Billed Treatment Time: 12 Total Billed Treatment 1 visit GT 12 min GREG MARION PT Dec 23, 2022 11:46
--- NOTE | 2022-12-23 14:57 | Occupational Therapy Eval ---
OT Evaluation-General/PLF Medical Diagnosis Admission Date Dec 20, 2022 at 20:23 Medical Diagnosis: UTI Onset Date: Dec 20, 2022 Therapy Diagnosis Therapy Diagnosis: LLE weakness Precautions Precautions/Isolations: Standard Precautions Weight Bear Status Weight Bearing Restriction: Weight Bearing/Tolerated Location Restriction: LE Bilateral Referral Physician: Dr. Yepez Referral Reason: Activity Tolerance, Self Care, Evaluation/Treatment, Strengthening/ROM Medical History Pertinent Medical History: COPD, DM, Smoking Additional Medical History Patient admitted/ER for UTI 05/30/22, . 12/07/22 Admitted or ER for ETOH intoxication 03/04/22, LOB 11/13/21 and orthostatic HTN 12/25/21. CT results L2L3 bulging disc with moderate central stenosis. MRI completed 12/23/22 however results unavailable at time of EVAL. OT spoke with RNTRAE and RN reports patient daughter states her father has had several falls over the course of a year Current History ports he fell out of WC at MRI, staff report a lowering to the floor w/ LLE tangled and patient unable to bear weight. Patient reports he has lived in [place] for years and just came back to stay with his family. Reviewed History: Yes Social History Home: Single Level Current Living Status: Alone Entry Into Home: Stairs With Railing Steps Into Home: 1 ADL-Prior Level of Function SCALE: Activities may be completed with or without assistive devices. 9-Dxiiqaddbi-frhhlcz completes the activity by him/herself with no assistance from a helper. 5-Set-up or Clean-up Assistance-helper sets up or cleans up; patient completes activity. [place] assists only prior to or following the activity. 4-Supervision or Touching Assistance-helper provides verbal cues and/or touching/steadying and/or contact guard assistance as patient completes ac tivity. Assistance may be provided throughout the activity or intermittently. 3-Partial/Moderate Assistance-helper does LESS THAN HALF the effort. [place] lifts, holds or supports trunk or limbs, but provides less than half the effort. 2-Substantial/Maximal Assistance-helper does MORE THAN HALF the effort. [place] lifts or holds trunk or limbs and provides more than half the effort. 2-Jyhuvnglm-ahbjri does ALL the effort. Patient does none of the effort to complete the activity. Or, the assistance of 2 or more helpers is required for the patient to complete the activity. If activity was not attempted, code reason: 7-Patient Refused. 9-Not Applicable-not attempted and the patient did not perform the activity before the current illness, exacerbation or injury. 10-Not Attempted due to Environmental Limitations-(lack of equipment, weather restraints, etc.). 88-Not Attempted due to Medical Conditions or Safety Concerns. 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 Pain Location: No Pain Reported Mental Status/Objective Patient Orientation: Person, Place, Time, Situation Attachments: Hayes Catheter Current Hand Dominance: Right Upper Extremity ROM BUE ROM WNLs Upper Extremity Coordination TIP to TIP WNLS, snaps, ties, buvckle and button WNLs. Upper Extremity Sensation reports WNLs Upper Extremity Strength LUE when tested isolated -4/5 when tested with RUE +4/5 ADL-Treatment ADL-Current On arrival, patient in recliner w/ socks loosely fitting. OT requested patient to pull socks snug. Patient flexed forward and elevated each foot separately w/ hip flexed to pull up socks.Patient manipulated all normal fasteners without difficulty. In standing patient is able to rock forward and backwards rising to toes and pressure through heel elevating toes w/ FWW stability and CGA. Patient is able to match toe taps multidirectional following mirrored therapist lead w/o LOB to LLE. When stance on RLE ataxic directional movements to LLE to toe tap. Patient is able to march in place raising knee to FWW bar height w/o LOB using FEE and CGA from OT Eating (QC): 6 (opens sugar and butter packets ) Oral Hygiene (QC): 5 Shower/Bathe Self (QC): 4 (PCT reports shower today w/ min Assist, no LOB in shower or transfer) Upper Body Dressing (QC): 6 Lower Body Dressing (QC): 5 (VCs for dressing sequence of LLE first ON and LLE last OFF) On/Off Footwear (QC): 6 Toileting Hygiene (QC): 7 Transfer from standing to bed CGA w/ FWW and supine, OT observed patient lift LLE first into bed and then RLE placed on top of LLE. No assistance required Education OT Patient Education: Correct positioning, Exercise program, Modified ADL techniques, Progress toward Goal/Update tx plan, Purpose of tx/functional activities, Reviewed precautions, Rehab process, Safety issues, Transfer techniques, Use of adapted equipment, W/C management Teaching Recipient: Patient Teaching Methods: Demonstration Response to Teaching: Reinforcement Needed OT Correspondence Analyst Goals Senior Living Goals Eating (QC): 6 Oral Hygiene (QC): 6 Toileting Hygiene (QC): 6 Shower/Bathe Self (QC): 6 Upper Body Dressing (QC): 6 Lower Body Dressing (QC): 6 On/Off Footwear (QC): 6 1=Demonstrate adherence to instructed precautions during ADL tasks. 2=Patient will verbalize/demonstrate understanding of assistive devices/modifications for ADL. 3=Patient will improve strength/tolerance for activity to enable patient to perform ADL's. OT Education/Plan Problem List/Assessment Assessment: Decreased Activ Tolerance, Decreased Safety Aware, Impaired Funct Balance, Impaired Self-Care Skills Discharge Recommendations Plan/Recommendations: Continue POC Treatment Plan/Plan of Care Treatment,Training & Education: Yes Patient would benefit from OT for education, treatment and training to promote independence in ADL's, mobility, safety and/or upper extremity function for ADL's. Plan of Care: ADL Retraining, Cognitive Retraining, Concurrent Therapy, Functional Mobility, Group Exercise/Act as Ind, UE Funct Exercise/Act, UE Neuromus Re-Ed/Coord Treatment Duration: Dec 27, 2022 Frequency: 3 times per week (3-5 times per week) Estimated Hrs Per Day: .25 hour per day Agreement: Yes Rehab Potential: Fair Time Start Time: 13:00 Stop Time: 13:15 DATE: Dec 23, 2022 Total Time Billed (hr/min): 15 Billed Treatment Time EVM 15 min DINO OSEI OT Dec 23, 2022 14:57
--- NOTE | 2022-12-23 15:23 | Diagnostic Imaging Report ---
PROCEDURE: MRI lumbar spine. TECHNIQUE: Multiplanar, multisequence MRI of the lumbar spine was performed without contrast. INDICATION: Low back pain with left leg weakness. COMPARISON: CT lumbar spine 12/20/2022. FINDINGS: There are five lumbar-type vertebral bodies for the purposes of this report. Normal alignment. Vertebral body heights are preserved. Modic type II degenerative endplate changes at L2-L3. The visualized pelvis and paravertebral soft tissues are unremarkable. No abnormal signal in the conus which terminates at L1. Normal morphology of the cauda equina. L1-L2: No spinal canal, lateral recess, or neural foraminal narrowing. L2-L3: Broad-based disc bulging results in mild bilateral lateral recess and neural foraminal narrowing. No spinal canal narrowing. L3-L4: Broad-based disc bulging and disc space height loss result in mild bilateral lateral recess and moderate bilateral neural foraminal narrowing. No spinal canal narrowing. L4-L5: Broad-based disc bulging and disc space height loss result in mild bilateral lateral recess and moderate bilateral neural foraminal narrowing. No spinal canal narrowing. L5-S1: No spinal canal, lateral recess, or neural foraminal narrowing. IMPRESSION: 1. Spondylotic changes result in scattered moderate neural foraminal narrowing as above. 2. No high-grade spinal canal stenosis. 3. No acute osseous findings. Modic type II degenerative endplate changes at L2-L3. Dictated by: Dictated on workstation # [id number]
[2022-12-23 15:29] VITALS: BP 132/76
[2022-12-23] MEDS: TAMSULOSIN 0.4 MG (FLOMAX) CAP PO SCH (20:54)
[2022-12-23] MEDS: diphenhydrAMINE 25 MG TABLET PO PRN (21:01)
[2022-12-23 23:36] VITALS: BP 172/87
[2022-12-24 03:11] VITALS: BP 172/83
[2022-12-24] MEDS: cloNIDine 0.1 MG TABLET PO PRN (03:13)
[2022-12-24] MEDS: inSUlin ASPART 1 UNIT/0.01 ML (PER UNIT) SC SCH ×4 (06:00→20:47)
[2022-12-24] MEDS: THERAPEUTIC MULTIVITAMIN W/MINERALS TABLET PO SCH (06:00)
[2022-12-24 06:04] LABS: BASOPHILS % (AUTO) 1 % (0-10); EOSINOPHILS # (AUTO) 0.1 10^3/uL (0.0-0.3); EOSINOPHILS % (AUTO) 3 % (0-10); HEMATOCRIT 37 % (40-54); HEMOGLOBIN 12.4 g/dL (13.3-17.7); LYMPHOCYTES # (AUTO) 1.2 10^3/uL (1.0-4.0); LYMPHOCYTES % (AUTO) 29 % (12-44); MEAN CORPUSCULAR HEMOGLOBIN 32 pg (25-34); MEAN CORPUSCULAR HGB CONC 34 g/dL (32-36); MEAN CORPUSCULAR VOLUME 95 fL (80-99); MEAN PLATELET VOLUME 10.9 fL (9.0-12.2); MONOCYTES # (AUTO) 0.4 10^3/uL (0.0-1.0); MONOCYTES % (AUTO) 9 % (0-12); NEUTROPHILS # (AUTO) 2.4 10^3/uL (1.8-7.8); NEUTROPHILS % (AUTO) 59 % (42-75); PLATELET COUNT 185 10^3/uL (130-400); WHITE BLOOD COUNT 4.1 10^3/uL (4.3-11.0)
[2022-12-24 06:32] LABS: ALBUMIN 3.3 GM/DL (3.2-4.5); BILIRUBIN,TOTAL 0.3 MG/DL (0.1-1.0); CALCIUM 9.2 MG/DL (8.5-10.1); CREATININE SERUM 0.83 MG/DL (0.60-1.30); POTASSIUM 4.1 MMOL/L (3.6-5.0); TOTAL PROTEIN 5.4 GM/DL (6.4-8.2)
[2022-12-24] MEDS: FLUTICASONE/VILANTEROL 100/25 MCG (7 DOSES) IH SCH (06:58)
[2022-12-24] MEDS: RT-Ipratropium/Albuterol NEB 3 ML VIAL INH SCH ×2 (06:58→22:00)
[2022-12-24 07:33] VITALS: BP 123/71
[2022-12-24] MEDS: SENNOSIDES 8.6 MG TABLET PO SCH ×2 (08:45→21:00)
[2022-12-24] MEDS: DOCUSATE SODIUM 100 MG CAPSULE PO SCH ×2 (08:46→21:01)
[2022-12-24] MEDS: amLODIPine 5 MG TABLET PO SCH (08:46)
[2022-12-24] MEDS: FOLIC ACID 1 MG TAB PO SCH (08:46)
[2022-12-24] MEDS: PANTOPRAZOLE 40 MG TABLET PO SCH (08:46)
[2022-12-24] MEDS: ASPIRIN 81 MG CHEWABLE TABLET PO SCH (08:46)
[2022-12-24] MEDS: ENOXAPARIN 30 MG/0.3 ML SYRINGE SC SCH (08:47)
[2022-12-24] MEDS: NICOTINE 21 MG PATCH TD SCH (08:47)
[2022-12-24] MEDS: NYSTATIN CREAM 30 GM TUBE TP SCH ×3 (08:48→21:01)
[2022-12-24] MEDS: PATCH REMOVAL TP SCH (08:48)
--- NOTE | 2022-12-24 08:58 | Discharge Summary ---
MICHAEL CAREY MD, RESIDENT 12/24/22 0857: Discharge Summary Hospital Course Was the Problem List Reviewed?: Yes Problems/Dx: (1) UTI (urinary tract infection) Status: Acute Assessment & Plan: Patient presents due to a fall. Noting worsening confusion over the last couple weeks. Patient has a chronic indwelling catheter in place secondary to urinary retention. UA was positive for UTI. Initially treated with IV cefepime. Plan: Urine culture growing Gabriela We will discharge patient with Diflucan to complete treatment course (2) Fall on same level Status: Acute Assessment & Plan: Patient presents due to a fall with inability to bear weight on left lower extremity. Hip and pelvis x-ray was negative. CT spine was done which was notable for degenerative findings most significant at the L2-L3 with moderate stenosis. MRI of the spine was negative for stenosis but did show degenerative changes as well as neuroforaminal narrowing at L2-L5 ranging from mild to moderate Plan: PT/OT evaluation Patient doing great per PT/OT, likely had a muscle strain will discharge to SNF Qualifiers: Qualified Codes: W18.30XA - Fall on same level, unspecified, initial encounter (3) Left leg weakness Status: Acute Assessment & Plan: See problem above (4) Yeast infection of the skin Status: Acute Assessment & Plan: Patient noted to have a yeast infection on his urethral meatus. Plan: Continue nystatin treatment (5) COPD (chronic obstructive pulmonary disease) Status: Chronic Assessment & Plan: Patient has COPD, is also a smoker. On 2.5 L nasal cannula at home. Plan: Saturation look good on room air, continue as needed Continue home medications Encourage smoking cessation (6) Uncontrolled diabetes mellitus Status: Chronic Assessment & Plan: Sliding scale insulin (7) Cannabis abuse, daily use Status: Chronic Assessment & Plan: UDS was positive for cannabis. (8) Uncontrolled hypertension Status: Chronic Assessment & Plan: Restarted home lisinopril, kidney function stable. (9) Daily consumption of alcohol Status: Acute Assessment & Plan: Patient is a daily drinker of alcohol, drinks a 12 pack/day. Alcohol level in the ED was negative. Scoring 0 on CIWA thus far. Plan: Monitor for alcohol withdrawal, CIWA protocol Hospital Course Date of Admission: Dec 20, 2022 at 20:23 Admission Diagnosis : Family Physician/Provider: Romina Escobar MD,Resident Date of Discharge: 12/24/22 Discharge Diagnosis: [UTI, left lower extremity weakness] Hospital Course: [Patient is a 67-year-old male with a past medical history of COPD, urinary retention requiring chronic catheter placement, diabetes who presented with a ground-level fall. He states his left lower extremity gave out and was unable to bear weight on this extremity thus he presented to the ED for further evaluation. X-rays were negative for any fractures however it was noted that patient had weakness in his left lower extremity as well as a urinary tract infection. He was managed with cefepime initially for the urinary tract infection however urine cultures showed Gabriela albicans. He was thus switched to Diflucan to continue treatment of his UTI. MRI of the spine was conducted which was negative for any stenosis but was notable for foraminal narrowing from the L2-L5 ranging from mild to moderate and degenerative changes. However there were no findings that would indicate why patient had left lower extremity weakness. This continued to improve throughout hospitalization and physical therapy and Occupational Therapy noted that had good range of motion with distractibility. Patient was thus discharged to [facility] in stable condition.] Labs and Pending Lab Test: Laboratory Tests 12/23/22 10:50: Glucometer 289H 12/23/22 15:31: Glucometer 260H 12/23/22 20:25: Glucometer 260H 12/24/22 05:24: White Blood Count 4.1L, Red Blood Count 3.88L, Hemoglobin 12.4L, Hematocrit 37L, Mean Corpuscular Volume 95, Mean Corpuscular Hemoglobin 32, Mean Corpuscular Hemoglobin Concent 34, Red Cell Distribution Width 13.2, Platelet Count 185, Mean Platelet Volume 10.9, Immature Granulocyte % (Auto) 0, Neutrophils (%) (Auto) 59, Lymphocytes (%) (Auto) 29, Monocytes (%) (Auto) 9, Eosinophils (%) (Auto) 3, Basophils (%) (Auto) 1, Neutrophils # (Auto) 2.4, Lymphocytes # (Auto) 1.2, Monocytes # (Auto) 0.4, Eosinophils # (Auto) 0.1, Basophils # (Auto) 0.0, Immature Granulocyte # (Auto) 0.0, Sodium Level 137, Potassium Level 4.1, Chloride Level 105, Carbon Dioxide Level 25, Anion Gap 7, Blood Urea Nitrogen 21H, Creatinine 0.83, Estimat Glomerular Filtration Rate 95, BUN/Creatinine Ratio 25, Glucose Level 286H, Calcium Level 9.2, Corrected Calcium 9.8, Total Bilirubin 0.3, Aspartate Amino Transf (AST/SGOT) 10, Alanine Aminotransferase (ALT/SGPT) 6, Alkaline Phosphatase 58, Total Protein 5.4L, Albumin 3.3 12/24/22 05:55: Glucometer 268H Microbiology 12/20/22 Urine Culture - Final, Complete Gabriela albicans Home Meds Active Reported Ondansetron Odt (Ondansetron) 4 Mg Tab.rapdis 4 Mg SL Q4H PRN Metformin HCl ER (Metformin HCl) 500 Mg Tab.er.24 1,000 Mg PO BID TAKES 2 (500MG) TABLETS Ventolin Hfa (Albuterol Sulfate) 1 Puff Puff 2 Puff INH Q4H PRN Spiriva (Tiotropium Cabins) 18 Mcg Aerp 1 Inh IH DAILY Nasal Allergy (Triamcinolone Acetonide) 55 Mcg Ethel 1 Ethel NSEACH DAILY Finasteride 5 Mg Tablet 5 Mg PO HS Jardiance (Empagliflozin) 25 Mg Tablet 25 Mg PO DAILY Pantoprazole Sodium 40 Mg Tablet.dr 40 Mg PO DAILY Fluoxetine HCl 20 Mg Tablet 20 Mg PO HS Montelukast Sodium 10 Mg Tablet 10 Mg PO HS Flomax (Tamsulosin HCl) 0.4 Mg Cap 0.4 Mg PO HS Cetirizine HCl 10 Mg Tablet 10 Mg PO HS Melatonin 5 mg Tablet (Melatonin/Pyridoxine) 5 Mg-1 Mg Tablet 1 Tab PO HS PRN Atorvastatin Calcium 40 Mg Tablet 40 Mg PO HS Symbicort 160-4.5 Mcg Inhaler (Budesonide/Formoterol Fumarate) 160 Mcg-4.5 Mcg/Actuation Hfa.aer.ad 2 Puff IH BID Lisinopril 40 Mg Tablet 20 Mg PO DAILY TAKES OF A (40MG) TABLET Aspirin 81 Mg Tab.chew 81 Mg PO DAILY Assessment/Pt Instructions Please see electronic discharge instructions given to patient. Discharge Instructions Discharge Diet: No Restrictions Activity as Tolerated: Yes Discharge Physical Examination Vital Signs Vital Signs Date Time Temp Pulse Resp B/P (MAP) Pulse Ox O2 Delivery O2 Flow Rate FiO2 12/24/22 07:33 36.2 81 16 123/71 (88) 99 Room Air 12/24/22 03:11 0.00 0.00 12/20/22 21:57 21 General Appearance: No Apparent Distress HEENT: PERRL/EOMI Respiratory: Chest Non Tender, Lungs Clear, Normal Breath Sounds, No Accessory Muscle Use, No Respiratory Distress Cardiovascular: Regular Rate, Rhythm, No Edema, No Murmur Gastrointestinal: Normal Bowel Sounds, Non Tender, Soft Extremity: Other (Patient able to adduct, abduct and lift left lower extremity without significant weakness) Skin: Normal Color Neurologic/Psychiatric: Alert, Oriented x3 Allergies: Coded Allergies: morphine (Unverified Allergy, Mild, Itching, 03/07/22) Uncoded Allergies: codine (Allergy, Mild, Itching, 11/07/21) Copy Copies To 1: ROMINA ESCOBAR MD,RESIDENT Discharge Summary Date of Admission Dec 20, 2022 at 20:23 Date of Discharge Admission Diagnosis Assessment: UTI Unable to ambulate Severe back pain CT scan normal Plan: IV antibiotics IV Diflucan Home meds I personally performed the weinstein portions of the visit, discussed case with resid ent and concur with resident documentation of history, physical exam, assessment and treatment plan unless otherwise noted. Discharge Diagnosis (1) UTI (urinary tract infection) Status: Acute Assessment & Plan: Patient presents due to a fall. Noting worsening confusion over the last couple weeks. Patient has a chronic indwelling catheter in place secondary to urinary retention. UA was mildly positive for UTI. Will empirically treat given that patient is symptomatic. Plan: Continue IV cefepime due to recent UTI treatment Follow-up urine culture (2) Fall on same level Status: Acute Assessment & Plan: Patient presents due to a fall with inability to bear weight on left lower extremity. Hip and pelvis x-ray was negative. CT spine was done which was notable for degenerative findings most significant at the L2-L3 with moderate stenosis. Plan: PT/OT evaluation Consider physical therapy and possible Ortho referral in the outpatient Qualifiers: Qualified Codes: W18.30XA - Fall on same level, unspecified, initial encounter (3) Left leg weakness Status: Acute Assessment & Plan: See problem above (4) Yeast infection of the skin Status: Acute Assessment & Plan: Patient noted to have a yeast infection on his urethral meatus. Plan: Continue nystatin treatment (5) COPD (chronic obstructive pulmonary disease) Status: Chronic Assessment & Plan: Patient has COPD, is also a smoker. On 2.5 L nasal cannula at home. Plan: Continue oxygen at home level Restarted home medications Encourage smoking cessation (6) Uncontrolled diabetes mellitus Status: Chronic Assessment & Plan: (2) Yeast infection of the skin Status: Acute Assessment & Plan: Patient noted to have a yeast infection on his urethral meatus. Plan: Continue nystatin treatment (3) Uncontrolled hypertension Status: Acute (4) Fall on same level Initial glucose elevated to 346. Patient notes he is on metformin at home. Plan: Sliding scale insulin Hold metformin for now Follow-up A1c (7) Cannabis abuse, daily use Status: Chronic Assessment & Plan: UDS was positive for cannabis. (8) Uncontrolled hypertension Status: Chronic Assessment & Plan: Restarted home lisinopril, kidney function stable. (9) Daily consumption of alcohol Status: Acute Assessment & Plan: (2) Yeast infection of the skin Status: Acute Assessment & Plan: Patient noted to have a yeast infection on his urethral meatus. Plan: Continue nystatin treatment (3) Uncontrolled hypertension Status: Acute (4) Fall on same level Patient is a daily drinker of alcohol, drinks a 12 pack/day. Alcohol level in the ED was negative. Scoring 0 on CIWA thus far. Plan: Monitor for alcohol withdrawal, CIWA protocol JADEN DE LEON DO 12/24/22 1857: Discharge Summary Hospital Course Was the Problem List Reviewed?: Yes Hospital Course I personally performed the weinstein portions of the visit, discussed case with resident and concur with resident documentation of history, physical exam, assessment and treatment plan unless otherwise noted. Assessment/Pt Instructions [facility] Discharge Planning: <30 minutes discharge planning Discharge Instructions Discharge Diet: No Restrictions Discharge Physical Examination General Appearance: No Apparent Distress, WD/WN Allergies: Coded Allergies: morphine (Unverified Allergy, Mild, Itching, 03/07/22) Uncoded Allergies: codine (Allergy, Mild, Itching, 11/07/21) Copy Copies To 1: ROMINA ESCOBAR MD,RESIDENT MICHAEL CAREY MD, RESIDENT Dec 24, 2022 08:57 JADEN DE LEON DO Dec 24, 2022 18:57
--- NOTE | 2022-12-24 09:04 | Occ Therapy Progress Note ---
Therapy Progress Note Patient being discharged, declined therapy this morning, Please discontinue OT services. DINO OSEI OT Dec 24, 2022 09:04
--- NOTE | 2022-12-24 10:04 | Discharge Inst-Skilled Nursing ---
Discharge Inst-Skilled NF Reconcile Patient Problems Problems Reviewed?: Yes Chief Complaint Chief complaint: Inability to walk with urinary retention and UTI HPI: This is a 67-year-old male who presented to the ER with severe pain in back and having difficulty ambulating. patient was found to have UTI placed on empiric cefepime and Diflucan since he had a yeast UTI recently. We will evaluate what his needs are with therapy. Patient Instructions Patient Problems: Back pain Left leg weakness Consult/Follow Up/Orders Follow Up Appt.: [facility] rounds Skilled NF Admit to: [facility] Certification (SNF) I certify that SNF services are required to be given on an inpatient basis because of the above named patient's need for prison care on a continuing basis for the conditions(s) for which he/she was receiving inpatient hospital services prior to his/her transfer to the SNF. Half-Way Facility Order: Nursing Services, Family And Divorce Legal Assistant-Evaluate & Treat, Physical Therapy-Evaluate & Treat Oxygen Delivery Method: Room Air Discharge Diet: No Restrictions Daily Activity as Tolerated: Yes Resuscitation Status: Do Not Resuscitate New & Resume Previous Orders Masha Yepez Dec 24, 2022 10:03 MASHA YEPEZ DO Dec 24, 2022 10:04
[2022-12-24] MEDS ORDERED: FLUC200T9 PO (10:36)
[2022-12-24] MEDS ORDERED: NYST15CR35 TP (10:36)
[2022-12-24 11:27] VITALS: BP 131/84
--- NOTE | 2022-12-24 15:03 | Physical Therapy Daily Note ---
PT Daily Note-Current Subjective Pt found lying supine in bed upon entry. Agreed to PT. Reports that he does not know whether or not he is going home today. States that he has had some difficulty /c picking up his L leg. Pain Section J - Health Conditions 1. Rarely or not at all 2. Occasionally 3. Frequently 4. Almost constantly 8. Unable to answer Pain Effect on Sleep: 1 Pain Interference with Therapy: 1 Pain Interference w/Day-to-Day: 1 Mental Status Patient Orientation: Person Transfers SCALE: Activities may be completed with or without assistive devices. 9-Ndnjukpgyf-ouymucz completes the activity by him/herself with no assistance from a helper. 5-Set-up or Clean-up Assistance-helper sets up or cleans up; patient completes activity. [place] assists only prior to or following the activity. 4-Supervision or Touching Assistance-helper provides verbal cues and/or touching/steadying and/or contact guard assistance as patient completes activity. Assistance may be provided throughout the activity or intermittently. 3-Partial/Moderate Assistance-helper does LESS THAN HALF the effort. [place] lifts, holds or supports trunk or limbs, but provides less than half the effort. 2-Substantial/Maximal Assistance-helper does MORE THAN HALF the effort. [place] lifts or holds trunk or limbs and provides more than half the effort. 1-Uxnzvkhck-fuvoeg does ALL the effort. Patient does none of the effort to complete the activity. Or, the assistance of 2 or more helpers is required for the patient to complete the activity. If activity was not attempted, code reason: 7-Patient Refused. 9-Not Applicable-not attempted and the patient did not perform the activity before the current illness, exacerbation or injury. 10-Not Attempted due to Environmental Limitations-(lack of equipment, weather restraints, etc.). 88-Not Attempted due to Medical Conditions or Safety Concerns. Lying to Sitting/Side of Bed(Q: 4 Sit to Stand (QC): 4 Weight Bearing Right Lower Extremity: Right Weight Bearing/Tolerated Left Lower Extremity: Left Weight Bearing/Tolerated Gait Training Does the Patient Walk?: Yes Distance: 150 Walk 10 feet (QC): 4 Walk 50 ft with 2 Turns(QC): 4 Walk 150 ft (QC): 4 Gait Persons Needed: 1 Gait Assistive Device: FWW Assessment Current Status: Good Progress Pt performs lying to sitting transfer /c SBA for safety due to strength deficits. Pt has some difficulty moving LLE onto floor but is able to complete without touching assistance. Pt then performed sit to stand transfer /c SBA for safety due to strength deficits. He then ambulates up to 150 feet before requesting to be seated. Pt displays slight foot drag on L during swing phase and reports increased pain during stance phase on L. Pt left in recliner /c call light in place and all needs met post-treatment. Continue to progress pt per POC. PT [facility] Goals Investor Relations Specialist Goals PT [facility] Goals Time Frame: Jan 04, 2023 Roll Left & Right (QC): 6 Sit to Lying (QC): 6 Lying-Sitting on Side/Bed(QC): 6 Sit to Stand (QC): 6 Chair/Kha-ca-Ewkmo Xfer(QC): 6 Walk 10 feet (QC): 6 Walk 50ft with 2 Turns (QC): 6 Walk 150 ft (QC): 6 1 Step (curb) (QC): 6 PT Plan Treatment/Plan Treatment Plan: Continue Plan of Care Treatment Plan: Bed Mobility, Functional Activity [place], Functional Strength, Gait, Safety, Therapeutic Exercise, Transfers Treatment Duration: Jan 04, 2023 Frequency: 6 times per week Estimated Hrs Per Day: .25 hour per day Patient and/or Family Agrees t: Yes Time Time In: 1439 Time Out: 1455 DATE: Dec 24, 2022 Total Billed Treatment Time: 16 Total Billed Treatment 1 visit GT x 1 ROBERT LINDSAY PTA Dec 24, 2022 15:03
[2022-12-24 16:00] VITALS: BP 127/78
[2022-12-24 20:00] VITALS: BP 150/77
[2022-12-24] MEDS: MONTELUKAST 10 MG TABLET PO SCH (21:00)
[2022-12-24] MEDS: TAMSULOSIN 0.4 MG (FLOMAX) CAP PO SCH (21:00)
[2022-12-24] MEDS: FINASTERIDE 5 MG TABLET PO SCH (21:01)
[2022-12-24] MEDS: LORATADINE 10 MG TABLET PO SCH (21:01)
[2022-12-24] MEDS: FLUoxetine 20 MG CAPSULE PO SCH (21:01)
[2022-12-24 23:31] VITALS: BP 149/90
[2022-12-25] VITALS (7 sets, daily range): BP systolic 116–150; BP diastolic 73–90
--- NOTE | 2022-12-25 05:05 | Discharge Summary ---
Discharge Summary Hospital Course Problems/Dx: (1) UTI (urinary tract infection) Status: Acute (2) Fall on same level Status: Acute Qualifiers: Qualified Codes: W18.30XA - Fall on same level, unspecified, initial encounter (3) Left leg weakness Status: Acute (4) Yeast infection of the skin Status: Acute (5) COPD (chronic obstructive pulmonary disease) Status: Chronic (6) Uncontrolled diabetes mellitus Status: Chronic (7) Cannabis abuse, daily use Status: Chronic (8) Uncontrolled hypertension Status: Chronic (9) Daily consumption of alcohol Status: Acute Hospital Course Date of Admission: Dec 20, 2022 at 20:23 Admission Diagnosis : Family Physician/Provider: Romina Escobar MD,Resident Date of Discharge: 12/25/22 Discharge Diagnosis: [ ] Hospital Course: [ 1) UTI (urinary tract infection) Status: Acute Assessment & Plan: Patient presents due to a fall. Noting worsening confusion over the last couple weeks. Patient has a chronic indwelling catheter in place secondary to urinary retention. UA was positive for UTI. Initially treated with IV cefepime. Plan: Urine culture growing Gabriela We will discharge patient with Diflucan to complete treatment course (2) Fall on same level Status: Acute Assessment & Plan: Patient presents due to a fall with inability to bear weight on left lower extremity. Hip and pelvis x-ray was negative. CT spine was done which was notable for degenerative findings most significant at the L2-L3 with moderate stenosis. MRI of the spine was negative for stenosis but did show degenerative changes as well as neuroforaminal narrowing at L2-L5 ranging from mild to moderate Plan: PT/OT evaluation Patient doing great per PT/OT, likely had a muscle strain will discharge to SNF Qualifiers: Qualified Codes: W18.30XA - Fall on same level, unspecified, initial encounter (3) Left leg weakness Status: Acute Assessment & Plan: See problem above (4) Yeast infection of the skin Status: Acute Assessment & Plan: Patient noted to have a yeast infection on his urethral meatus. Plan: Continue nystatin treatment (5) COPD (chronic obstructive pulmonary disease) Status: Chronic Assessment & Plan: Patient has COPD, is also a smoker. On 2.5 L nasal cannula at home. Plan: Saturation look good on room air, continue as needed Continue home medications Encourage smoking cessation (6) Uncontrolled diabetes mellitus Status: Chronic Assessment & Plan: Sliding scale insulin (7) Cannabis abuse, daily use Status: Chronic Assessment & Plan: UDS was positive for cannabis. (8) Uncontrolled hypertension Status: Chronic Assessment & Plan: Restarted home lisinopril, kidney function stable. (9) Daily consumption of alcohol Status: Acute Assessment & Plan: Patient is a daily drinker of alcohol, drinks a 12 pack/day. Alcohol level in the ED was negative. Scoring 0 on CIWA thus far. Plan: Monitor for alcohol withdrawal, CIWA protocol Hospital Course Date of Admission: Dec 20, 2022 at 20:23 Admission Diagnosis : Family Physician/Provider: Romina Escobar MD,Resident Date of Discharge: 12/24/22 Discharge Diagnosis: [UTI, left lower extremity weakness] Hospital Course: [Patient is a 67-year-old male with a past medical history of COPD, urinary retention requiring chronic catheter placement, diabetes who presented with a ground-level fall. He states his left lower extremity gave out and was unable to bear weight on this extremity thus he presented to the ED for further evaluation. X-rays were negative for any fractures however it was noted that patient had weakness in his left lower extremity as well as a urinary tract infection. He was managed with cefepime initially for the urinary tract infection however urine cultures showed Gabriela albicans. He was thus switched to Diflucan to continue treatment of his UTI. MRI of the spine was conducted which was negative for any stenosis but was notable for foraminal narrowing from the L2-L5 ranging from mild to moderate and degenerative changes. However there were no findings that would indicate why patient had left lower extremity weakness. This continued to improve throughout hospitalization and physical therapy and Occupational Therapy noted that had good range of motion with distractibility. Patient was thus discharged to [facility] in stable condition.] Labs and Pending Lab Test: Laboratory Tests 12/24/22 05:24: White Blood Count 4.1L, Red Blood Count 3.88L, Hemoglobin 12.4L, Hematocrit 37L, Mean Corpuscular Volume 95, Mean Corpuscular Hemoglobin 32, Mean Corpuscular Hemoglobin Concent 34, Red Cell Distribution Width 13.2, Platelet Count 185, Mean Platelet Volume 10.9, Immature Granulocyte % (Auto) 0, Neutrophils (%) (Auto) 59, Lymphocytes (%) (Auto) 29, Monocytes (%) (Auto) 9, Eosinophils (%) (Auto) 3, Basophils (%) (Auto) 1, Neutrophils # (Auto) 2.4, Lymphocytes # (Auto) 1.2, Monocytes # (Auto) 0.4, Eosinophils # (Auto) 0.1, Basophils # (Auto) 0.0, Immature Granulocyte # (Auto) 0.0, Sodium Level 137, Potassium Level 4.1, Chloride Level 105, Carbon Dioxide Level 25, Anion Gap 7, Blood Urea Nitrogen 21H, Creatinine 0.83, Estimat Glomerular Filtration Rate 95, BUN/Creatinine Ratio 25, Glucose Level 286H, Calcium Level 9.2, Corrected Calcium 9.8, Total Bilirubin 0.3, Aspartate Amino Transf (AST/SGOT) 10, Alanine Aminotransferase (ALT/SGPT) 6, Alkaline Phosphatase 58, Total Protein 5.4L, Albumin 3.3 12/24/22 05:55: Glucometer 268H 12/24/22 10:29: Glucometer 302H 12/24/22 16:05: Glucometer 271H 12/24/22 20:28: Glucometer 148H Microbiology 12/20/22 Urine Culture - Final, Complete Gabriela albicans Home Meds Active Fluconazole 200 Mg Tablet 200 Mg PO BID 10 Days Nystatin 100,000 Unit/Gram Cream..g. 50 Gm TP TID 14 Days Apply until ulcer has resolved Reported Ondansetron Odt (Ondansetron) 4 Mg Tab.rapdis 4 Mg SL Q4H PRN Metformin HCl ER (Metformin HCl) 500 Mg Tab.er.24 1,000 Mg PO BID TAKES 2 (500MG) TABLETS Ventolin Hfa (Albuterol Sulfate) 1 Puff Puff 2 Puff INH Q4H PRN Spiriva (Tiotropium [place]) 18 Mcg Aerp 1 Inh IH DAILY Nasal Allergy (Triamcinolone Acetonide) 55 Mcg Geneva 1 Geneva NSEACH DAILY Finasteride 5 Mg Tablet 5 Mg PO HS Jardiance (Empagliflozin) 25 Mg Tablet 25 Mg PO DAILY Pantoprazole Sodium 40 Mg Tablet.dr 40 Mg PO DAILY Fluoxetine HCl 20 Mg Tablet 20 Mg PO HS Montelukast Sodium 10 Mg Tablet 10 Mg PO HS Flomax (Tamsulosin HCl) 0.4 Mg Cap 0.4 Mg PO HS Cetirizine HCl 10 Mg Tablet 10 Mg PO HS Melatonin 5 mg Tablet (Melatonin/Pyridoxine) 5 Mg-1 Mg Tablet 1 Tab PO HS PRN Atorvastatin Calcium 40 Mg Tablet 40 Mg PO HS Symbicort 160-4.5 Mcg Inhaler (Budesonide/Formoterol Fumarate) 160 Mcg-4.5 Mcg/Actuation Hfa.aer.ad 2 Puff IH BID Lisinopril 40 Mg Tablet 20 Mg PO DAILY TAKES OF A (40MG) TABLET Aspirin 81 Mg Tab.chew 81 Mg PO DAILY Assessment/Pt Instructions long-term pending Discharge Planning: <30 minutes discharge planning Discharge Instructions Discharge Diet: No Restrictions Activity as Tolerated: Yes Discharge Physical Examination Vital Signs Vital Signs Date Time Temp Pulse Resp B/P (MAP) Pulse Ox O2 Delivery O2 Flow Rate FiO2 12/25/22 03:33 36.5 74 16 146/78 (100) 98 Nasal Cannula 2.50 2.50 12/25/22 03:27 28 General Appearance: No Apparent Distress, WD/WN, Chronically ill Allergies: Coded Allergies: morphine (Unverified Allergy, Mild, Itching, 03/07/22) Uncoded Allergies: codine (Allergy, Mild, Itching, 11/07/21) Discharge Summary Date of Admission Dec 20, 2022 at 20:23 Date of Discharge Discharge Date: Dec 25, 2022 Admission Diagnosis Assessment: UTI Unable to ambulate Severe back pain CT scan normal Plan: IV antibiotics IV Diflucan Home meds I personally performed the weinstein portions of the visit, discussed case with resident and concur with resident documentation of history, physical exam, assessment and treatment plan unless otherwise noted. 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 Noting worsening confusion over the last couple weeks. Patient has a chronic indwelling catheter in place secondary to urinary retention. UA was positive for UTI. Initially treated with IV cefepime. Plan: Urine culture growing Gabriela We will discharge patient with Diflucan to complete treatment course (2) Fall on same level Status: Acute Assessment & Plan: Patient presents due to a fall with inability to bear weight on left lower extremity. Hip and pelvis x-ray was negative. CT spine was done which was notable for degenerative findings most significant at the L2-L3 with moderate stenosis. MRI of the spine was negative for stenosis but did show degenerative changes as well as neuroforaminal narrowing at L2-L5 ranging from mild to moderate Plan: PT/OT evaluation Patient doing great per PT/OT, likely had a muscle strain will discharge to SNF Qualifiers: Qualified Codes: W18.30XA - Fall on same level, unspecified, initial encounter (3) Left leg weakness Status: Acute Assessment & Plan: See problem above (4) Yeast infection of the skin Status: Acute Assessment & Plan: Patient noted to have a yeast infection on his urethral meatus. Plan: Continue nystatin treatment (5) COPD (chronic obstructive pulmonary disease) Status: Chronic Assessment & Plan: Patient has COPD, is also a smoker. On 2.5 L nasal cannula at home. Plan: Saturation look good on room air, continue as needed Continue home medications Encourage smoking cessation (6) Uncontrolled diabetes mellitus Status: Chronic Assessment & Plan: Sliding scale insulin (7) Cannabis abuse, daily use Status: Chronic Assessment & Plan: UDS was positive for cannabis. (8) Uncontrolled hypertension Status: Chronic Assessment & Plan: Restarted home lisinopril, kidney function stable. (9) Daily consumption of alcohol Status: Acute Assessment & Plan: Patient is a daily drinker of alcohol, drinks a 12 pack/day. Alcohol level in the ED was negative. Scoring 0 on CIWA thus far. Plan: Monitor for alcohol withdrawal, CIWA protocol JADEN DE LEON DO Dec 25, 2022 05:05
[2022-12-25 05:57] LABS: BASOPHILS % (AUTO) 1 % (0-10); EOSINOPHILS # (AUTO) 0.1 10^3/uL (0.0-0.3); EOSINOPHILS % (AUTO) 3 % (0-10); HEMATOCRIT 39 % (40-54); HEMOGLOBIN 12.8 g/dL (13.3-17.7); LYMPHOCYTES % (AUTO) 26 % (12-44); MEAN CORPUSCULAR HEMOGLOBIN 32 pg (25-34); MEAN CORPUSCULAR HGB CONC 33 g/dL (32-36); MEAN CORPUSCULAR VOLUME 96 fL (80-99); MEAN PLATELET VOLUME 10.8 fL (9.0-12.2); MONOCYTES # (AUTO) 0.4 10^3/uL (0.0-1.0); MONOCYTES % (AUTO) 10 % (0-12); NEUTROPHILS # (AUTO) 2.3 10^3/uL (1.8-7.8); NEUTROPHILS % (AUTO) 60 % (42-75); PLATELET COUNT 176 10^3/uL (130-400); WHITE BLOOD COUNT 3.9 10^3/uL (4.3-11.0)
[2022-12-25 06:16] LABS: ALBUMIN 3.3 GM/DL (3.2-4.5); BILIRUBIN,TOTAL 0.3 MG/DL (0.1-1.0); CALCIUM 9.4 MG/DL (8.5-10.1); CREATININE SERUM 0.86 MG/DL (0.60-1.30); POTASSIUM 4.4 MMOL/L (3.6-5.0); TOTAL PROTEIN 5.5 GM/DL (6.4-8.2)
[2022-12-25] MEDS: inSUlin ASPART 1 UNIT/0.01 ML (PER UNIT) SC SCH ×4 (06:20→20:41)
[2022-12-25] MEDS: THERAPEUTIC MULTIVITAMIN W/MINERALS TABLET PO SCH (06:20)
[2022-12-25] MEDS: FLUTICASONE/VILANTEROL 100/25 MCG (7 DOSES) IH SCH (08:13)
[2022-12-25] MEDS: RT-Ipratropium/Albuterol NEB 3 ML VIAL INH SCH ×2 (08:13→21:01)
[2022-12-25] MEDS ORDERED: FLUC200T9 PO (08:40)
[2022-12-25] MEDS: DOCUSATE SODIUM 100 MG CAPSULE PO SCH ×2 (09:45→20:41)
[2022-12-25] MEDS: FOLIC ACID 1 MG TAB PO SCH (09:45)
[2022-12-25] MEDS: amLODIPine 5 MG TABLET PO SCH (09:45)
[2022-12-25] MEDS: PANTOPRAZOLE 40 MG TABLET PO SCH (09:46)
[2022-12-25] MEDS: ASPIRIN 81 MG CHEWABLE TABLET PO SCH (09:46)
[2022-12-25] MEDS: SENNOSIDES 8.6 MG TABLET PO SCH ×2 (09:46→20:41)
[2022-12-25] MEDS: ENOXAPARIN 30 MG/0.3 ML SYRINGE SC SCH (09:46)
[2022-12-25] MEDS: PATCH REMOVAL TP SCH (09:47)
[2022-12-25] MEDS: NYSTATIN CREAM 30 GM TUBE TP SCH ×3 (09:47→20:43)
[2022-12-25] MEDS: NICOTINE 21 MG PATCH TD SCH (09:47)
--- NOTE | 2022-12-25 14:24 | Physical Therapy Daily Note ---
PT Daily Note-Current Subjective Pt found lying in bed upon entry. Agreed to PT. Reports that his LLE is feeling better today. Pain Section J - Health Conditions 1. Rarely or not at all 2. Occasionally 3. Frequently 4. Almost constantly 8. Unable to answer Pain Effect on Sleep: 1 Pain Interference with Therapy: 1 Pain Interference w/Day-to-Day: 1 Mental Status Patient Orientation: Person, Place Attachments: Hayes Catheter Transfers SCALE: Activities may be completed with or without assistive devices. 3-Copglxgzjt-geyhajv completes the activity by him/herself with no assistance from a helper. 5-Set-up or Clean-up Assistance-helper sets up or cleans up; patient completes activity. Anderson assists only prior to or following the activity. 4-Supervision or Touching Assistance-helper provides verbal cues and/or touching/steadying and/or contact guard assistance as patient completes activity. Assistance may be provided throughout the activity or intermittently. 3-Partial/Moderate Assistance-helper does LESS THAN HALF the effort. Anderson lifts, holds or supports trunk or limbs, but provides less than half the effort. 2-Substantial/Maximal Assistance-helper does MORE THAN HALF the effort. Anderson lifts or holds trunk or limbs and provides more than half the effort. 1-Yyhanthoc-mhfkhg does ALL the effort. Patient does none of the effort to complete the activity. Or, the assistance of 2 or more helpers is required for the patient to complete the activity. If activity was not attempted, code reason: 7-Patient Refused. 9-Not Applicable-not attempted and the patient did not perform the activity before the current illness, exacerbation or injury. 10-Not Attempted due to Environmental Limitations-(lack of equipment, weather restraints, etc.). 88-Not Attempted due to Medical Conditions or Safety Concerns. Sit to Lying (QC): 6 Lying to Sitting/Side of Bed(Q: 6 Sit to Stand (QC): 6 Weight Bearing Right Lower Extremity: Right Weight Bearing/Tolerated Left Lower Extremity: Left Weight Bearing/Tolerated Gait Training Does the Patient Walk?: Yes Distance: 350 Walk 10 feet (QC): 4 Walk 50 ft with 2 Turns(QC): 4 Walk 150 ft (QC): 4 Gait Persons Needed: 1 Gait Assistive Device: FWW Assessment Current Status: Good Progress Pt performs all completed bed mobility independently without use of an assistive device. He completes a sit to stand transfer from the edge of bed independently and required no VCs for proper sequencing. Pt then ambulates 350 feet /c use of a FWW and CGA for safety due to balance deficits. Pt demonstrates a slight limp during stance phase on LLE and reports numbness below knee. Increased BLE fatigue reported post-ambulation. Pt left in bed post-treatment /c call light in place and all needs met post-treatment. Continue to progress pt per POC. PT Long-Term Goals Roll Grinder Operator Goals PT Long-Term Goals Time Frame: Jan 04, 2023 Roll Left & Right (QC): 6 Sit to Lying (QC): 6 Lying-Sitting on Side/Bed(QC): 6 Sit to Stand (QC): 6 Chair/Htt-od-Snftu Xfer(QC): 6 Walk 10 feet (QC): 6 Walk 50ft with 2 Turns (QC): 6 Walk 150 ft (QC): 6 1 Step (curb) (QC): 6 PT Plan Treatment/Plan Treatment Plan: Continue Plan of Care Treatment Plan: Bed Mobility, Functional Activity Avtar, Functional Strength, Gait, Safety, Therapeutic Exercise, Transfers Treatment Duration: Jan 04, 2023 Frequency: 6 times per week Estimated Hrs Per Day: .25 hour per day Patient and/or Family Agrees t: Yes Time Time In: 1308 Time Out: 1324 DATE: Dec 25, 2022 Total Billed Treatment Time: 16 Total Billed Treatment 1 visit GT x 1 ROBERT LINDSAY GANG PUNCH OPERATOR Dec 25, 2022 14:24
[2022-12-25] MEDS: MONTELUKAST 10 MG TABLET PO SCH (20:41)
[2022-12-25] MEDS: FLUoxetine 20 MG CAPSULE PO SCH (20:41)
[2022-12-25] MEDS: FINASTERIDE 5 MG TABLET PO SCH (20:41)
[2022-12-25] MEDS: TAMSULOSIN 0.4 MG (FLOMAX) CAP PO SCH (20:41)
[2022-12-25] MEDS: LORATADINE 10 MG TABLET PO SCH (20:41)
[2022-12-26 03:34] VITALS: BP 126/77
[2022-12-26] MEDS: THERAPEUTIC MULTIVITAMIN W/MINERALS TABLET PO SCH (05:36)
[2022-12-26] MEDS: inSUlin ASPART 1 UNIT/0.01 ML (PER UNIT) SC SCH ×4 (05:36→20:24)
[2022-12-26 06:13] LABS: BASOPHILS % (AUTO) 1 % (0-10); EOSINOPHILS # (AUTO) 0.1 10^3/uL (0.0-0.3); EOSINOPHILS % (AUTO) 3 % (0-10); HEMATOCRIT 38 % (40-54); HEMOGLOBIN 12.4 g/dL (13.3-17.7); LYMPHOCYTES % (AUTO) 25 % (12-44); MEAN CORPUSCULAR HEMOGLOBIN 32 pg (25-34); MEAN CORPUSCULAR HGB CONC 33 g/dL (32-36); MEAN CORPUSCULAR VOLUME 96 fL (80-99); MEAN PLATELET VOLUME 10.8 fL (9.0-12.2); MONOCYTES # (AUTO) 0.3 10^3/uL (0.0-1.0); MONOCYTES % (AUTO) 8 % (0-12); NEUTROPHILS # (AUTO) 2.4 10^3/uL (1.8-7.8); NEUTROPHILS % (AUTO) 63 % (42-75); PLATELET COUNT 170 10^3/uL (130-400); WHITE BLOOD COUNT 3.8 10^3/uL (4.3-11.0)
[2022-12-26 06:33] LABS: ALBUMIN 3.4 GM/DL (3.2-4.5); BILIRUBIN,TOTAL 0.3 MG/DL (0.1-1.0); CALCIUM 9.6 MG/DL (8.5-10.1); CREATININE SERUM 0.89 MG/DL (0.60-1.30); POTASSIUM 4.3 MMOL/L (3.6-5.0); TOTAL PROTEIN 5.4 GM/DL (6.4-8.2)
[2022-12-26] MEDS: RT-Ipratropium/Albuterol NEB 3 ML VIAL INH SCH ×2 (07:23→21:41)
[2022-12-26] MEDS: FLUTICASONE/VILANTEROL 100/25 MCG (7 DOSES) IH SCH (07:28)
[2022-12-26 07:32] VITALS: BP 126/82
[2022-12-26] MEDS: PANTOPRAZOLE 40 MG TABLET PO SCH (08:16)
[2022-12-26] MEDS: NYSTATIN CREAM 30 GM TUBE TP SCH ×3 (08:16→20:13)
[2022-12-26] MEDS: SENNOSIDES 8.6 MG TABLET PO SCH ×2 (08:17→20:12)
[2022-12-26] MEDS: DOCUSATE SODIUM 100 MG CAPSULE PO SCH ×2 (08:17→20:12)
[2022-12-26] MEDS: amLODIPine 5 MG TABLET PO SCH (08:17)
[2022-12-26] MEDS: ASPIRIN 81 MG CHEWABLE TABLET PO SCH (08:17)
[2022-12-26] MEDS: PATCH REMOVAL TP SCH (08:17)
[2022-12-26] MEDS: NICOTINE 21 MG PATCH TD SCH (08:17)
[2022-12-26] MEDS: ENOXAPARIN 30 MG/0.3 ML SYRINGE SC SCH (08:17)
[2022-12-26] MEDS: FOLIC ACID 1 MG TAB PO SCH (08:17)
[2022-12-26 11:38] VITALS: BP 140/79
--- NOTE | 2022-12-26 12:42 | Progress Note ---
MICHAEL CAREY MD, RESIDENT 12/26/22 1242: Subjective HPI/CC On Admission Date Seen by Provider: Dec 26, 2022 Time Seen by Provider: 08:45 Chief complaint: Inability to walk with urinary retention and UTI HPI: This is a 67-year-old male who presented to the ER with severe pain in back and having difficulty ambulating. patient was found to have UTI placed on empiric cefepime and Diflucan since he had a yeast UTI recently. We will evaluate what his needs are with therapy. Subjective/Events-last exam Is doing well today. Is hopeful that he will be able to go tomorrow. He is having some anxiety and agitation at night, believes it is due to one of his medications. He otherwise has no concerns today. Review of Systems General: No Fatigue HEENT: No Head Aches Pulmonary: No Dyspnea, No Cough Cardiovascular: No: Chest Pain, Palpitations, Edema Gastrointestinal: No: Nausea, Vomiting, Diarrhea, Constipation Genitourinary: No Dysuria Objective Exam Vital Signs Vital Signs Date Time Temp Pulse Resp B/P (MAP) Pulse Ox O2 Delivery O2 Flow Rate FiO2 12/26/22 11:38 36.8 81 18 140/79 (99) 96 Room Air 12/26/22 08:00 0.00 12/25/22 03:27 28 Capillary Refill : General Appearance: No Apparent Distress HEENT: PERRL/EOMI Neck: Full Range of Motion, Normal Inspection Respiratory: Chest Non Tender, Lungs Clear, Normal Breath Sounds, No Accessory Muscle Use, No Respiratory Distress Cardiovascular: Regular Rate, Rhythm, No Edema, No Murmur Gastrointestinal: Normal Bowel Sounds, Non Tender, Soft Extremity: Normal Range of Motion Neurologic/Psychiatric: Alert, Oriented x3 Skin: Normal Color, Warm/Dry Results/Procedures Lab Laboratory Tests 12/26/22 05:59 Patient resulted labs reviewed. Imaging: Reviewed Imaging Films Assessment/Plan Assessment and Plan Assess & Plan/Chief Complaint UTI, left lower extremity weakness Diagnosis/Problems Diagnosis/Problems (1) UTI (urinary tract infection) Status: Acute Assessment & Plan: Patient presents due to a fall. Noting worsening confusion over the last couple weeks. Patient has a chronic indwelling catheter in place secondary to urinary retention. UA was positive for UTI. Initially treated with IV cefepime. Plan: Urine culture growing Gabriela Continue fluconazole 200 mg daily (2) Fall on same level Status: Acute Assessment & Plan: Patient presents due to a fall with inability to bear weight on left lower extremity. Hip and pelvis x-ray was negative. CT spine was done which was notable for degenerative findings most significant at the L2-L3 with moderate stenosis. MRI of the spine was negative for stenosis but did show degenerative changes as well as neuroforaminal narrowing at L2-L5 ranging from mild to moderate Plan: Continue PT OT Patient doing great per PT/OT, plan for discharge to SNF tomorrow Qualifiers: Qualified Codes: W18.30XA - Fall on same level, unspecified, initial encounter (3) Left leg weakness Status: Acute Assessment & Plan: See problem above (4) Yeast infection of the skin Status: Acute Assessment & Plan: Patient noted to have a yeast infection on his urethral meatus. Plan: Continue nystatin treatment (5) COPD (chronic obstructive pulmonary disease) Status: Chronic Assessment & Plan: Patient has COPD, is also a smoker. On 2.5 L nasal cannula at home. Plan: Saturation look good on room air, continue as needed Continue home medications Encourage smoking cessation, nicotine patch ordered (6) Uncontrolled diabetes mellitus Status: Chronic Assessment & Plan: Sliding scale insulin (7) Cannabis abuse, daily use Status: Chronic Assessment & Plan: UDS was positive for cannabis. (8) Uncontrolled hypertension Status: Chronic Assessment & Plan: Continue home lisinopril and amlodipine. (9) Daily consumption of alcohol Status: Acute Assessment & Plan: Patient is a daily drinker of alcohol, drinks a 12 pack/day. Alcohol level in the ED was negative. Scoring 0 on CIWA. Plan: Discontinued CIWA protocol JADEN DE LEON DO 12/26/222053: Subjective Subjective/Events-last exam Doing well [facility] tomorrow Assessment/Plan Assessment and Plan Assess & Plan/Chief Complaint I personally performed the weinstein portions of the visit, discussed case with resident and concur with resident documentation of history, physical exam, assessment and treatment plan unless otherwise noted. MICHAEL CAREY MD, RESIDENT Dec 26, 2022 12:42 JADEN DE LEON DO Dec 26, 2022 20:54
[2022-12-26] MEDS ORDERED: hydrOXYzine 25 MG CAPSULE PO PRN (12:45)
--- NOTE | 2022-12-26 14:01 | Physical Therapy Daily Note ---
PT Daily Note-Current Subjective Pt found supine in bed upon entry. Agreed to PT. Reports that his LLE is feeling better today. Pain Section J - Health Conditions 1. Rarely or not at all 2. Occasionally 3. Frequently 4. Almost constantly 8. Unable to answer Pain Effect on Sleep: 1 Pain Interference with Therapy: 1 Pain Interference w/Day-to-Day: 1 Mental Status Patient Orientation: Person, Place Attachments: Hayes Catheter Transfers SCALE: Activities may be completed with or without assistive devices. 2-Ykgqyfsgqt-fdwiqdu completes the activity by him/herself with no assistance from a helper. 5-Set-up or Clean-up Assistance-helper sets up or cleans up; patient completes activity. [place] assists only prior to or following the activity. 4-Supervision or Touching Assistance-helper provides verbal cues and/or touching/steadying and/or contact guard assistance as patient completes activity. Assistance may be provided throughout the activity or intermittently. 3-Partial/Moderate Assistance-helper does LESS THAN HALF the effort. [place] lifts, holds or supports trunk or limbs, but provides less than half the effort. 2-Substantial/Maximal Assistance-helper does MORE THAN HALF the effort. [place] lifts or holds trunk or limbs and provides more than half the effort. 6-Vjiwevijh-sbdqzx does ALL the effort. Patient does none of the effort to complete the activity. Or, the assistance of 2 or more helpers is required for the patient to complete the activity. If activity was not attempted, code reason: 7-Patient Refused. 9-Not Applicable-not attempted and the patient did not perform the activity before the current illness, exacerbation or injury. 10-Not Attempted due to Environmental Limitations-(lack of equipment, weather restraints, etc.). 88-Not Attempted due to Medical Conditions or Safety Concerns. Sit to Lying (QC): 6 Lying to Sitting/Side of Bed(Q: 6 Sit to Stand (QC): 6 Weight Bearing Right Lower Extremity: Right Weight Bearing/Tolerated Left Lower Extremity: Left Weight Bearing/Tolerated Gait Training Does the Patient Walk?: Yes Distance: 350 Walk 10 feet (QC): 4 Walk 50 ft with 2 Turns(QC): 4 Walk 150 ft (QC): 4 Gait Persons Needed: 1 Gait Assistive Device: FWW Assessment Current Status: Good Progress Pt performs all bed mobility independently /c use of bed railing. Sit to stand transfer performed from edge of bed /c use of UEs for push off. He then ambulat es 350 feet /c use of FWW. Displays increased step length duration on LLE likely due to reported pain during stance phase. SBA required during ambulation due to reported pain and balance deficits. He required occasional CGA during turns /c use of FWW due to signs of slight loss of balance. Pt left supine in bed /c call light in place and all needs met post-treatment. He states that he would like a shower. RN notified. Continue to progress pt per POC. PT Mcfp Goals Mcfp Goals PT Mcfp Goals Time Frame: Jan 04, 2023 Roll Left & Right (QC): 6 Sit to Lying (QC): 6 Lying-Sitting on Side/Bed(QC): 6 Sit to Stand (QC): 6 Chair/Fan-nt-Bqenf Xfer(QC): 6 Walk 10 feet (QC): 6 Walk 50ft with 2 Turns (QC): 6 Walk 150 ft (QC): 6 1 Step (curb) (QC): 6 PT Plan Treatment/Plan Treatment Plan: Continue Plan of Care Treatment Plan: Bed Mobility, Functional Activity Avtar, Functional Strength, Gait, Safety, Therapeutic Exercise, Transfers Treatment Duration: Jan 04, 2023 Frequency: 6 times per week Estimated Hrs Per Day: .25 hour per day Patient and/or Family Agrees t: Yes Time Time In: 1340 Time Out: 1358 DATE: Dec 26, 2022 Total Billed Treatment Time: 18 Total Billed Treatment 1 visit GT x 1 ROBERT LINDSAY SCOURING TRAIN OPERATOR Dec 26, 2022 14:01
[2022-12-26 16:50] VITALS: BP 145/77
[2022-12-26 19:24] VITALS: BP 146/85
[2022-12-26] MEDS: TAMSULOSIN 0.4 MG (FLOMAX) CAP PO SCH (20:10)
[2022-12-26] MEDS: FLUoxetine 20 MG CAPSULE PO SCH (20:12)
[2022-12-26] MEDS: MONTELUKAST 10 MG TABLET PO SCH (20:12)
[2022-12-26] MEDS: FINASTERIDE 5 MG TABLET PO SCH (20:12)
[2022-12-26] MEDS: LORATADINE 10 MG TABLET PO SCH (20:12)
[2022-12-26 23:09] VITALS: BP 142/80
[2022-12-27] MEDS: THERAPEUTIC MULTIVITAMIN W/MINERALS TABLET PO SCH (05:49)
[2022-12-27] MEDS: inSUlin ASPART 1 UNIT/0.01 ML (PER UNIT) SC SCH ×2 (06:01→11:16)
[2022-12-27 06:29] LABS: BASOPHILS % (AUTO) 1 % (0-10); EOSINOPHILS # (AUTO) 0.1 10^3/uL (0.0-0.3); EOSINOPHILS % (AUTO) 3 % (0-10); HEMATOCRIT 36 % (40-54); HEMOGLOBIN 12.1 g/dL (13.3-17.7); LYMPHOCYTES # (AUTO) 1.3 10^3/uL (1.0-4.0); LYMPHOCYTES % (AUTO) 37 % (12-44); MEAN CORPUSCULAR HEMOGLOBIN 32 pg (25-34); MEAN CORPUSCULAR HGB CONC 33 g/dL (32-36); MEAN CORPUSCULAR VOLUME 96 fL (80-99); MEAN PLATELET VOLUME 10.9 fL (9.0-12.2); MONOCYTES # (AUTO) 0.4 10^3/uL (0.0-1.0); MONOCYTES % (AUTO) 10 % (0-12); NEUTROPHILS # (AUTO) 1.8 10^3/uL (1.8-7.8); NEUTROPHILS % (AUTO) 50 % (42-75); PLATELET COUNT 161 10^3/uL (130-400); WHITE BLOOD COUNT 3.6 10^3/uL (4.3-11.0)
[2022-12-27 06:43] LABS: ALBUMIN 3.3 GM/DL (3.2-4.5); POTASSIUM 4.2 MMOL/L (3.6-5.0)
[2022-12-27 06:45] LABS: CALCIUM 9.2 MG/DL (8.5-10.1)
[2022-12-27 06:46] LABS: TOTAL PROTEIN 5.4 GM/DL (6.4-8.2)
[2022-12-27 06:48] LABS: BILIRUBIN,TOTAL 0.4 MG/DL (0.1-1.0)
[2022-12-27 06:49] LABS: CREATININE SERUM 0.87 MG/DL (0.60-1.30)
[2022-12-27] MEDS: RT-Ipratropium/Albuterol NEB 3 ML VIAL INH SCH (07:39)
[2022-12-27] MEDS: FLUTICASONE/VILANTEROL 100/25 MCG (7 DOSES) IH SCH (07:39)
[2022-12-27 08:00] VITALS: BP 136/81
[2022-12-27] MEDS: PATCH REMOVAL TP SCH (08:35)
[2022-12-27] MEDS: SENNOSIDES 8.6 MG TABLET PO SCH (08:35)
[2022-12-27] MEDS: amLODIPine 5 MG TABLET PO SCH (08:35)
[2022-12-27] MEDS: ASPIRIN 81 MG CHEWABLE TABLET PO SCH (08:35)
[2022-12-27] MEDS: PANTOPRAZOLE 40 MG TABLET PO SCH (08:35)
[2022-12-27] MEDS: DOCUSATE SODIUM 100 MG CAPSULE PO SCH (08:35)
[2022-12-27] MEDS: NYSTATIN CREAM 30 GM TUBE TP SCH (08:36)
[2022-12-27] MEDS: NICOTINE 21 MG PATCH TD SCH (08:36)
[2022-12-27] MEDS: ENOXAPARIN 30 MG/0.3 ML SYRINGE SC SCH (08:36)
--- NOTE | 2022-12-27 08:41 | Physical Therapy Daily Note ---
PT Daily Note-Current Subjective Pt found supine in bed upon entry. Agreed to PT. Reports that he is feeling good today. No reports of pain. Pain Section J - Health Conditions 1. Rarely or not at all 2. Occasionally 3. Frequently 4. Almost constantly 8. Unable to answer Pain Effect on Sleep: 1 Pain Interference with Therapy: 1 Pain Interference w/Day-to-Day: 1 Mental Status Patient Orientation: Person, Place Attachments: [place] Catheter Transfers SCALE: Activities may be completed with or without assistive devices. 8-Zhepgawrgn-pxxgxqh completes the activity by him/herself with no assistance from a helper. 5-Set-up or Clean-up Assistance-helper sets up or cleans up; patient completes activity. [place] assists only prior to or following the activity. 4-Supervision or Touching Assistance-helper provides verbal cues and/or touching/steadying and/or contact guard assistance as patient completes activity. Assistance may be provided throughout the activity or intermittently. 3-Partial/Moderate Assistance-helper does LESS THAN HALF the effort. [place] lifts, holds or supports trunk or limbs, but provides less than half the effort. 2-Substantial/Maximal Assistance-helper does MORE THAN HALF the effort. [place] lifts or holds trunk or limbs and provides more than half the effort. 6-Khdqhbgwg-crvrir does ALL the effort. Patient does none of the effort to complete the activity. Or, the assistance of 2 or more helpers is required for the patient to complete the activity. If activity was not attempted, code reason: 7-Patient Refused. 9-Not Applicable-not attempted and the patient did not perform the activity before the current illness, exacerbation or injury. 10-Not Attempted due to Environmental Limitations-(lack of equipment, weather restraints, etc.). 88-Not Attempted due to Medical Conditions or Safety Concerns. Sit to Lying (QC): 6 Lying to Sitting/Side of Bed(Q: 6 Sit to Stand (QC): 6 Weight Bearing Right Lower Extremity: Right Weight Bearing/Tolerated Left Lower Extremity: Left Weight Bearing/Tolerated Gait Training Does the Patient Walk?: Yes Distance: 350 Walk 10 feet (QC): 4 Walk 50 ft with 2 Turns(QC): 4 Walk 150 ft (QC): 4 Gait Persons Needed: 1 Gait Assistive Device: FWW Assessment Current Status: Good Progress Pt performs sitting to lying and lying to sitting transfer independently /c use of bed railing. Sit to stand transfer performed independently /c use of UEs for push off. Pt ambulated 350 feet /c use of FWW. Required CGA /c turning due to demonstrated unsteadiness. Displays inconsistent stride lengths likely due to reported R hip pain caused by favoring of LLE. Pt left supine in bed /c nurse present, call light in place, and all needs met. Continue to progress pt per POC. PT Workers Compensation Attorney Goals Workers Compensation Attorney Goals PT Workers Compensation Attorney Goals Time Frame: Jan 04, 2023 Roll Left & Right (QC): 6 Sit to Lying (QC): 6 Lying-Sitting on Side/Bed(QC): 6 Sit to Stand (QC): 6 Chair/Hwj-ec-Sudqn Xfer(QC): 6 Walk 10 feet (QC): 6 Walk 50ft with 2 Turns (QC): 6 Walk 150 ft (QC): 6 1 Step (curb) (QC): 6 PT Plan Treatment/Plan Treatment Plan: Continue Plan of Care Treatment Plan: Bed Mobility, Functional Activity [place], Functional Strength, Gait, Safety, Therapeutic Exercise, Transfers Treatment Duration: Jan 04, 2023 Frequency: 6 times per week Estimated Hrs Per Day: .25 hour per day Patient and/or Family Agrees t: Yes Time Time In: 819 Time Out: 834 DATE: Dec 27, 2022 Total Billed Treatment Time: 15 Total Billed Treatment 1 visit GT x 1 ROBERT LINDSAY DIRECTOR OF QUALITY IMPROVEMENT Dec 27, 2022 08:41
[2022-12-27] MEDS: FOLIC ACID 1 MG TAB PO SCH (08:52)
--- NOTE | 2022-12-27 09:28 | Discharge Summary ---
MICHAEL CAREY MD, RESIDENT 12/27/22 0928: Discharge Summary Hospital Course Was the Problem List Reviewed?: Yes Problems/Dx: (1) UTI (urinary tract infection) Status: Acute Assessment & Plan: Patient presents due to a fall. Noting worsening confusion over the last couple weeks. Patient has a chronic indwelling catheter in place secondary to urinary retention. UA was positive for UTI. Initially treated with IV cefepime. Plan: Urine culture growing Gabriela Continue fluconazole 200 mg daily (2) Fall on same level Status: Acute Assessment & Plan: Patient presents due to a fall with inability to bear weight on left lower extremity. Hip and pelvis x-ray was negative. CT spine was done which was notable for degenerative findings most significant at the L2-L3 with moderate stenosis. MRI of the spine was negative for stenosis but did show degenerative changes as well as neuroforaminal narrowing at L2-L5 ranging from mild to moderate Plan: Continue PT OT Patient doing great per PT/OT, was witnessed to be walking around the unit this morning. Plan for [facility] to [facility] today Qualifiers: Qualified Codes: W18.30XA - Fall on same level, unspecified, initial encounter (3) Left leg weakness Status: Acute Assessment & Plan: See problem above (4) Yeast infection of the skin Status: Acute Assessment & Plan: Patient noted to have a yeast infection on his urethral meatus. Plan: Continue nystatin treatment (5) COPD (chronic obstructive pulmonary disease) Status: Chronic Assessment & Plan: Patient has COPD, is also a smoker. On 2.5 L nasal cannula at home. Plan: Saturation look good on room air, continue as needed Continue home medications Encourage smoking cessation, nicotine patch ordered (6) Uncontrolled diabetes mellitus Status: Chronic Assessment & Plan: Sliding scale insulin Qualifiers: Qualified Codes: E11.65 - Type 2 diabetes mellitus with hyperglycemia (7) Cannabis abuse, daily use Status: Chronic Assessment & Plan: UDS was positive for cannabis. (8) Uncontrolled hypertension Status: Chronic Assessment & Plan: Continue home lisinopril and amlodipine. (9) Daily consumption of alcohol Status: Acute Assessment & Plan: Patient is a daily drinker of alcohol, drinks a 12 pack/day. Alcohol level in the ED was negative. Scoring 0 on CIWA. Plan: Discontinued CIWA protocol Hospital Course Date of Admission: Dec 20, 2022 at 20:23 Admission Diagnosis : Family Physician/Provider: Romina Escobar MD,Resident Date of Discharge: 12/27/22 Discharge Diagnosis: [UTI, left lower extremity weakness] Hospital Course: [Patient is a 67-year-old male with a past medical history of COPD, urinary r etention requiring chronic catheter placement, diabetes who presented with a ground-level fall. He states his left lower extremity gave out and was unable to bear weight on this extremity thus he presented to the ED for further evaluation. X-rays were negative for any fractures however it was noted that patient had weakness in his left lower extremity as well as a urinary tract i nfection. He was managed with cefepime initially for the urinary tract infection however urine cultures showed Gabriela albicans. He was thus switched to Diflucan to continue treatment of his UTI. MRI of the spine was conducted which was negative for any stenosis but was notable for foraminal narrowing from the L2-L5 ranging from mild to moderate and degenerative changes. However there were no findings that would indicate why patient had left lower extremity weakness. This continued to improve throughout hospitalization and physical therapy and Occupational Therapy noted that had good range of motion with distractibility. Patient was initially to be discharged to [facility] however there was some setbacks with placement. He continued to work with physical therapy and Occupational Therapy while inpatient and continued to progress in terms of mobility. [facility] Labs and Pending Lab Test: Laboratory Tests 12/26/22 11:10: Glucometer 268H 12/26/22 16:14: Glucometer 206H 12/26/22 20:16: Glucometer 250H 12/27/22 05:45: White Blood Count 3.6L, Red Blood Count 3.79L, Hemoglobin 12.1L, Hematocrit 36L, Mean Corpuscular Volume 96, Mean Corpuscular Hemoglobin 32, Mean Corpuscular Hemoglobin Concent 33, Red Cell Distribution Width 13.2, Platelet Count 161, Mean Platelet Volume 10.9, Immature Granulocyte % (Auto) 0, Neutrophils (%) (Auto) 50, Lymphocytes (%) (Auto) 37, Monocytes (%) (Auto) 10, Eosinophils (%) (Auto) 3, Basophils (%) (Auto) 1, Neutrophils # (Auto) 1.8, Lymphocytes # (Auto) 1.3, Monocytes # (Auto) 0.4, Eosinophils # (Auto) 0.1, Basophils # (Auto) 0.0, Immature Granulocyte # (Auto) 0.0, Sodium Level 139, Potassium Level 4.2, Chloride Level 108H, Carbon Dioxide Level 24, Anion Gap 7, Blood Urea Nitrogen 18, Creatinine 0.87, Estimat Glomerular Filtration Rate 93, BUN/Creatinine Ratio 21, Glucose Level 223H, Calcium Level 9.2, Corrected Calcium 9.8, Total Bilirubin 0.4, Aspartate Amino Transf (AST/SGOT) 13, Alanine Aminotransferase (ALT/SGPT) 11, Alkaline Phosphatase 55, Total Protein 5.4L, Albumin 3.3 12/27/22 05:50: Glucometer 218H Microbiology 12/20/22 Urine Culture - Final, Complete Gabriela albicans Home Meds Active Fluconazole 200 Mg Tablet 200 Mg PO DAILY 10 Days Nystatin 100,000 Unit/Gram Cream..g. 50 Gm TP TID 14 Days Apply until ulcer has resolved Reported Ondansetron Odt (Ondansetron) 4 Mg Tab.rapdis 4 Mg SL Q4H PRN Metformin HCl ER (Metformin HCl) 500 Mg Tab.er.24 1,000 Mg PO BID TAKES 2 (500MG) TABLETS Ventolin Hfa (Albuterol Sulfate) 1 Puff Puff 2 Puff INH Q4H PRN Spiriva (Tiotropium [place]) 18 Mcg Aerp 1 Inh IH DAILY Nasal Allergy (Triamcinolone Acetonide) 55 Mcg [place] 1 [place] NSEACH DAILY Finasteride 5 Mg Tablet 5 Mg PO HS Jardiance (Empagliflozin) 25 Mg Tablet 25 Mg PO DAILY Pantoprazole Sodium 40 Mg Tablet.dr 40 Mg PO DAILY Fluoxetine HCl 20 Mg Tablet 20 Mg PO HS Montelukast Sodium 10 Mg Tablet 10 Mg PO HS Flomax (Tamsulosin HCl) 0.4 Mg Cap 0.4 Mg PO HS Cetirizine HCl 10 Mg Tablet 10 Mg PO HS Melatonin 5 mg Tablet (Melatonin/Pyridoxine) 5 Mg-1 Mg Tablet 1 Tab PO HS PRN Atorvastatin Calcium 40 Mg Tablet 40 Mg PO HS Symbicort 160-4.5 Mcg Inhaler (Budesonide/Formoterol Fumarate) 160 Mcg-4.5 Mcg/Actuation Hfa.aer.ad 2 Puff IH BID Lisinopril 40 Mg Tablet 20 Mg PO DAILY TAKES OF A (40MG) TABLET Aspirin 81 Mg Tab.chew 81 Mg PO DAILY Assessment/Pt Instructions Please see electronic discharge instructions given to patient. Discharge Instructions Discharge Diet: No Restrictions Activity as Tolerated: Yes Discharge Physical Examination Vital Signs Vital Signs Date Time Temp Pulse Resp B/P (MAP) Pulse Ox O2 Delivery O2 Flow Rate FiO2 12/27/22 08:00 36.7 95 20 136/81 (99) 97 Room Air 12/27/22 07:44 0.00 12/25/22 03:27 28 General Appearance: No Apparent Distress HEENT: Normal ENT Inspection Respiratory: Chest Non Tender, Lungs Clear, Normal Breath Sounds, No Accessory Muscle Use, No Respiratory Distress Cardiovascular: Regular Rate, Rhythm, No Edema, No Murmur Gastrointestinal: Normal Bowel Sounds, Non Tender, Soft Extremity: Other (Improving range of motion in left lower extremity, able to bear weight with assistance.) Skin: Normal Color, Warm/Dry Neurologic/Psychiatric: Alert, Oriented x3 Allergies: Coded Allergies: morphine (Unverified Allergy, Mild, Itching, 03/07/22) Uncoded Allergies: codine (Allergy, Mild, Itching, 11/07/21) Discharge Summary Date of Admission Dec 20, 2022 at 20:23 Date of Discharge Discharge Date: Dec 25, 2022 Admission Diagnosis Assessment: UTI Unable to ambulate Severe back pain CT scan normal Plan: IV antibiotics IV Diflucan Home meds I personally performed the weinstein portions of the visit, discussed case with resident and concur with resident documentation of history, physical exam, assessment and treatment plan unless otherwise noted. Discharge Diagnosis UTI, left lower extremity weakness (1) UTI (urinary tract infection) Status: Acute Assessment & Plan: Patient presents due to a fall. Noting worsening confusion over the last couple weeks. Patient has a chronic indwelling catheter in place secondary to urinary retention. UA was positive for UTI. Initially treated with IV cefepime. Plan: Urine culture growing Gabriela Continue fluconazole 200 mg daily (2) Fall on same level Status: Acute Assessment & Plan: Patient presents due to a fall with inability to bear weight on left lower extremity. Hip and pelvis x-ray was negative. CT spine was done which was notable for degenerative findings most significant at the L2-L3 with moderate stenosis. MRI of the spine was negative for stenosis but did show degenerative changes as well as neuroforaminal narrowing at L2-L5 ranging from mild to moderate Plan: Continue PT OT Patient doing great per PT/OT, plan for discharge to SNF tomorrow Qualifiers: Qualified Codes: W18.30XA - Fall on same level, unspecified, initial encounter (3) Left leg weakness Status: Acute Assessment & Plan: See problem above (4) Yeast infection of the skin Status: Acute Assessment & Plan: Patient noted to have a yeast infection on his urethral meatus. Plan: Continue nystatin treatment (5) COPD (chronic obstructive pulmonary disease) Status: Chronic Assessment & Plan: Patient has COPD, is also a smoker. On 2.5 L nasal cannula at home. Plan: Saturation look good on room air, continue as needed Continue home medications Encourage smoking cessation, nicotine patch ordered (6) Uncontrolled diabetes mellitus Status: Chronic Assessment & Plan: Sliding scale insulin Qualifiers: Qualified Codes: E11.65 - Type 2 diabetes mellitus with hyperglycemia (7) Cannabis abuse, daily use Status: Chronic Assessment & Plan: UDS was positive for cannabis. (8) Uncontrolled hypertension Status: Chronic Assessment & Plan: Continue home lisinopril and amlodipine. (9) Daily consumption of alcohol Status: Acute Assessment & Plan: Patient is a daily drinker of alcohol, drinks a 12 pack/day. Alcohol level in the ED was negative. Scoring 0 on CIWA. Plan: Discontinued CIWA protocol JADEN DE LEON DO 12/27/222045: Discharge Summary Hospital Course Was the Problem List Reviewed?: Yes Assessment/Pt Instructions I personally performed the weinstein portions of the visit, discussed case with mushtaq sanches and concur with resident documentation of history, physical exam, assessment and treatment plan unless otherwise noted. Discharge Planning: <30 minutes discharge planning Discharge Instructions Discharge Diet: No Restrictions Discharge Physical Examination Allergies: Coded Allergies: morphine (Unverified Allergy, Mild, Itching, 03/07/22) Uncoded Allergies: codine (Allergy, Mild, Itching, 11/07/21) MICHAEL CAREY MD, RESIDENT Dec 27, 2022 09:28 JADEN DE LEON DO Dec 27, 2022 20:46
[2022-12-27] MEDS ORDERED: PANT40TA52 PO (10:25)
[2022-12-27] MEDS ORDERED: LISI40TA9 PO (10:25)
[2022-12-27] MEDS ORDERED: MELA1TAB15 PO (10:25)
[2022-12-27] MEDS ORDERED: NYST15CR35 TP (10:25)
[2022-12-27] MEDS ORDERED: [UNRECOGNIZED DRUG - CODE] NSEACH (10:25)
[2022-12-27] MEDS ORDERED: TMSL.4C PO (10:25)
[2022-12-27] MEDS ORDERED: FLUO20TA28 PO (10:25)
[2022-12-27] MEDS ORDERED: METF-478 PO (10:25)
[2022-12-27] MEDS ORDERED: BUDE10.2 IH (10:25)
[2022-12-27] MEDS ORDERED: ATOR40TA70 PO (10:25)
[2022-12-27] MEDS ORDERED: FLUC200T9 PO (10:25)
[2022-12-27] MEDS ORDERED: TIOT18CA2 IH (10:25)
[2022-12-27] MEDS ORDERED: ASPI-999 PO (10:25)
[2022-12-27] MEDS ORDERED: EMPA25TA PO (10:25)
[2022-12-27] MEDS ORDERED: RT-ALBUINH INH (10:25)
[2022-12-27] MEDS ORDERED: MONT-40 PO (10:25)
[2022-12-27] MEDS ORDERED: ONDA4TAB11 SL (10:25)
[2022-12-27] MEDS ORDERED: FINA5TAB6 PO (10:25)
[2022-12-27] MEDS ORDERED: CETI10TA17 PO (10:25)
== END 2022-12-27 12:35 | DRG 699 ==
LOC: EDUNIT# 15:17 → ER 15:19 → 4TH 20:23
PROVIDERS: ADMIT Internal Medicine; ATTEND Internal Medicine
DX: T83.518A Infection and inflammatory reaction due to other urinary catheter, initial encounter (principal); G95.9 Disease of spinal cord, unspecified; N39.0 Urinary tract infection, site not specified; M54.9 Dorsalgia, unspecified; Z87.891 Personal history of nicotine dependence; Z66 Do not resuscitate; B37.2 Candidiasis of skin and nail; J44.9 Chronic obstructive pulmonary disease, unspecified; E11.65 Type 2 diabetes mellitus with hyperglycemia; I10 Essential (primary) hypertension; F12.10 Cannabis abuse, uncomplicated; N40.1 Benign prostatic hyperplasia with lower urinary tract symptoms; R33.8 Other retention of urine; R53.81 Other malaise; Z79.82 Long term (current) use of aspirin; Z79.899 Other long term (current) drug therapy; K21.9 Gastro-esophageal reflux disease without esophagitis; E78.00 Pure hypercholesterolemia, unspecified; M19.90 Unspecified osteoarthritis, unspecified site; E11.9 Type 2 diabetes mellitus without complications; F41.9 Anxiety disorder, unspecified; F32.A Depression, unspecified; Z11.52 Encounter for screening for COVID-19
CPT/HCPCS: 36415; 51702; 72131; 72148; 80053; 80306; 80320; 81000; 82947; 83036; 83735; 84443; 85025; 87088; 87636; 93005; 93041; 94640; 94664; 94760; 96361; 96365

== ENCOUNTER → 2023-01-03 | Outpatient (CLI) | payer MEDICARE ==
[~2023-01-03] MED LIST changes: +DOXY100T2 PO; +EMPA25TA PO; +FINA5TAB6 PO; +FLUC200T9 PO; +FLUO20TA28 PO; +METF-478 PO; +NYST15CR35 TP; +PANT40TA52 PO; +RT-ALBUINH INH; +[UNRECOGNIZED DRUG - CODE] NSEACH
--- NOTE | 2023-01-03 15:41 | Diagnostic Imaging Report ---
PROCEDURE: MR imaging of the brain without contrast. TECHNIQUE: Multiplanar, multisequence MR imaging of the brain was performed without contrast. INDICATION: Syncope COMPARISON: Brain MRI on 11/13/2021. FINDINGS: Acute punctate lacunar infarct within the right centrum semiovale bile. Extensive chronic small vessel ischemic disease. Mild global volume loss. Encephalomalacia within the right occipital lobe. Chronic lacunar infarcts within the bilateral thalami. No acute or chronic hemorrhage. No marrow replacement process within the skull. The pituitary gland is normal. No midline shift or mass effect. IMPRESSION: Acute lacunar infarct within the right centrum semiovale. Extensive chronic small vessel ischemic disease. Mild global volume loss. Encephalomalacia within the right parietal-occipital region Chronic lacunar infarcts within bilateral thalami. Dictated by: Dictated on workstation # [id number]
--- NOTE | 2023-01-03 16:03 | Diagnostic Imaging Report ---
PROCEDURE: MR imaging cervical spine without contrast. TECHNIQUE: Multiplanar, multisequence MR imaging of the cervical spine was performed without contrast. INDICATION: Trauma. COMPARISON: CT cervical spine of 03/04/2022. FINDINGS: Straightening of cervical spine is present. No fracture or concerning marrow replacing process. Anterior cervical interbody fusion has been performed at C5-C6 since prior examination. No injury of the anterior posterior longitudinal ligaments. Ligamentum flavum is intact. No interspinous edema to suggest injury. There is a benign hemangioma within the T3 vertebral body. Cervical cord is normal in size and signal. No extradural fluid collection. C2-C3: Normal. C3-C4: Small central disc protrusion causes mild spinal canal stenosis. Right-sided uncovertebral joint hypertrophy causes moderate foraminal stenosis. C4-C5: Central disc protrusion and ligament flavum hypertrophy cause mild spinal canal stenosis. There is severe bilateral neuroforaminal stenosis due to uncovertebral joint hypertrophy. C5-C6: Discectomy without posterior disc material. Moderate bilateral neuroforaminal stenosis. C6-C7: Small central disc protrusion causes mild spinal canal stenosis. No neuroforaminal narrowing. C7-T1: Normal. IMPRESSION: 1. No fracture, ligamentous injury or malalignment in the cervical spine. 2. Normal cervical cord without impingement. 3. Multilevel mild degenerative changes are detailed above. Dictated by: Dictated on workstation # [id number]
== END ==
LOC: RAD 14:37
PROVIDERS: ATTEND Nurse Practitioner
DX: M48.02 Spinal stenosis, cervical region (principal); M47.812 Spondylosis without myelopathy or radiculopathy, cervical region; M50.21 Other cervical disc displacement, high cervical region; M50.221 Other cervical disc displacement at C4-C5 level; M50.223 Other cervical disc displacement at C6-C7 level; R29.6 Repeated falls; Z98.1 Arthrodesis status
CPT/HCPCS: 70551; 72141

== ENCOUNTER 2023-02-01 20:32 | Emergency (ER) | payer MEDICARE ==
[~2023-02-01] VITALS: Ht 178 cm; Wt 57.0 kg
[2023-02-01] MEDS ORDERED: NS IV 1000 ML 1,000 ML IV SCH (21:30)
[2023-02-01 21:33] LABS: CLARITY,URINE TURBID; COLOR,URINE YELLOW; GLUCOSE, URINE (UA) 3+ (NEGATIVE); PROTEIN,URINE 2+ (NEGATIVE)
[2023-02-01 21:34] LABS: BACTERIA,URINE LARGE /HPF; BILIRUBIN,URINE NEGATIVE (NEGATIVE); KETONES,URINE 1+ (NEGATIVE); LEUKOCYTE ESTERASE ,URINE 3+ (NEGATIVE); NITRITE,URINE POSITIVE (NEGATIVE); URINE OTHER TRANS EPI 0-2 /HPF; WBC,URINE >100 /HPF
[2023-02-01 21:50] LABS: BASOPHILS % (AUTO) 0 % (0-10); EOSINOPHILS % (AUTO) 0 % (0-10); HEMATOCRIT 40 % (40-54); HEMOGLOBIN 13.6 g/dL (13.3-17.7); LYMPHOCYTES # (AUTO) 0.8 10^3/uL (1.0-4.0); LYMPHOCYTES % (AUTO) 10 % (12-44); MEAN CORPUSCULAR HEMOGLOBIN 32 pg (25-34); MEAN CORPUSCULAR HGB CONC 34 g/dL (32-36); MEAN CORPUSCULAR VOLUME 94 fL (80-99); MEAN PLATELET VOLUME 9.2 fL (9.0-12.2); MONOCYTES # (AUTO) 0.8 10^3/uL (0.0-1.0); MONOCYTES % (AUTO) 9 % (0-12); NEUTROPHILS # (AUTO) 6.9 10^3/uL (1.8-7.8); NEUTROPHILS % (AUTO) 80 % (42-75); PLATELET COUNT 255 10^3/uL (130-400); WHITE BLOOD COUNT 8.5 10^3/uL (4.3-11.0)
[2023-02-01 22:08] LABS: ALBUMIN 3.7 GM/DL (3.2-4.5); BILIRUBIN,TOTAL 0.8 MG/DL (0.1-1.0); CALCIUM 9.3 MG/DL (8.5-10.1); CREATININE SERUM 0.84 MG/DL (0.60-1.30); POTASSIUM 4.1 MMOL/L (3.6-5.0); TOTAL PROTEIN 6.2 GM/DL (6.4-8.2)
[2023-02-01] MEDS ORDERED: CEPHALEXIN 250 MG CAPSULE PO STA (22:38)
[2023-02-01] MEDS ORDERED: CEPH500T PO (22:44)
--- NOTE | 2023-02-01 22:44 | ED General ---
General Chief Complaint: General Problems/Pain Stated Complaint: LETHARGIC/HIGH BLOOD PRESSURE/LOSS OF APETITE Nursing Triage Note: BROUGHT IN BY CAREGIVER FOR LETHARGY, INCREASED WEAKNESS, DECREASED PO INTAKE. PT WITH INDWELLING MIRANDA X1 MONTH. Source of Information: Patient, Family Exam Limitations: No Limitations History of Present Illness Date Seen by Provider: Feb 01, 2023 Time Seen by Provider: 21:54 Initial Comments 67-year-old male presents emerged part today for weakness fatigue and decreased p.o. intake. He had a stroke about a month ago and has been gradually declining since that time with increased frequency where he was recently in bed and not do much. No fevers or chills. He drinks a couple of Ensure drinks a day but otherwise minimal p.o. intake. No abdominal pain, chest pain cough fevers. Does have PT OT that are coming to the home. All other systems reviewed and negative except documented per HPI. Voice recognition software was used to help create this chart Allergies and Home Medications Allergies Coded Allergies: morphine (Unverified Allergy, Mild, Itching, 03/07/22) Uncoded Allergies: codine (Allergy, Mild, Itching, 11/07/21) Patient Home Medication List Home Medication List Reviewed: Yes Albuterol Sulfate (Ventolin Hfa) 1 Puff Puff, 2 PUFF INH Q4H PRN for SHORTNESS OF BREATH Prescribed by: Patria Muñoz on 12/27/22 1025 Aspirin (Aspirin) 81 Mg Tab.chew, 81 MG PO DAILY Prescribed by: Patria Muñoz on 12/27/22 1025 Atorvastatin Calcium (Atorvastatin Calcium) 40 Mg Tablet, 40 MG PO HS Prescribed by: Patria Muñoz on 12/27/22 1025 Budesonide/Formoterol Fumarate (Symbicort 160-4.5 Mcg Inhaler) 160 Mcg-4.5 Mcg/Actuation Hfa.aer.ad, 2 PUFF IH BID Prescribed by: Patria Muñoz on 12/27/22 1025 Cephalexin (Cephalexin) 500 Mg Tablet, 500 MG PO BID Prescribed by: ANTHONY MARTE MD on 02/01/23 8814 Cetirizine HCl (Cetirizine HCl) 10 Mg Tablet, 10 MG PO HS Prescribed by: Patria Muñoz on 12/27/22 1025 Empagliflozin (Jardiance) 25 Mg Tablet, 25 MG PO DAILY Prescribed by: Patria Muñoz on 12/27/22 1025 Finasteride (Finasteride) 5 Mg Tablet, 5 MG PO HS Prescribed by: Patria Muñoz on 12/27/22 102 Fluconazole (Fluconazole) 200 Mg Tablet, 200 MG PO DAILY Prescribed by: Patria Muñoz on 12/27/22 1025 Fluoxetine HCl (Fluoxetine HCl) 20 Mg Tablet, 20 MG PO HS Prescribed by: Patria Muñoz on 12/27/22 1025 Lisinopril (Lisinopril) 40 Mg Tablet, 20 MG PO DAILY Prescribed by: Patria Muñoz on 12/27/22 1025 Melatonin/Pyridoxine (Melatonin 5 mg Tablet) 5 Mg-1 Mg Tablet, 1 TAB PO HS PRN for SLEEP Prescribed by: Patria Muñoz on 12/27/22 1025 Metformin HCl (Metformin HCl ER) 500 Mg Tab.er.24, 1,000 MG PO BID Prescribed by: Patria Muñoz on 12/27/22 1025 Montelukast Sodium (Montelukast Sodium) 10 Mg Tablet, 10 MG PO HS Prescribed by: Patria Muñoz on 12/27/22 1025 Nystatin (Nystatin) 100,000 Unit/Gram Cream..g., 50 GM TP TID Prescribed by: Patria Muñoz on 12/27/22 1025 Ondansetron (Ondansetron Odt) 4 Mg Tab.rapdis, 4 MG SL Q4H PRN for NAUSEA/VOMITING-1ST LINE Prescribed by: Patria Muñoz on 12/27/22 1025 Pantoprazole Sodium (Pantoprazole Sodium) 40 Mg Tablet.dr, 40 MG PO DAILY Prescribed by: Patria Muñoz on 12/27/22 1025 Tamsulosin HCl (Flomax) 0.4 Mg Cap, 0.4 MG PO HS Prescribed by: Patria Muñoz on 12/27/22 1025 Tiotropium [place] (Spiriva) 18 Mcg Aerp, 1 INH IH DAILY Prescribed by: Patria Muñoz on 12/27/22 1025 Triamcinolone Acetonide (Nasal Allergy) 55 Mcg Lorraine, 1 SPRAY NSEACH DAILY Prescribed by: Patria Muñoz on 12/27/22 1025 Review of Systems Review of Systems Constitutional: see HPI Past [id number] Hx Patient Social History Tobacco Use?: Yes Substance use?: Yes Substance type: Marijuana Alcohol Use?: Yes Alcohol Frequency: Once in a while Pt feels they are or have been: No Immunizations Up To Date First/Initial COVID19 Vaccinat: no Second COVID19 Vaccination Sriram: no Third COVID19 Vaccination Date: no Seasonal Allergies Seasonal Allergies: No Past Medical History Surgery/Hospitalization HX: femoral bypass, meniscus, hernia repair, HTN, RENAL STENT, GERD, DM TYPE II, HLD, COPD, TIA, URINARY RETENTION, UTI Surgeries: Yes Orthopedic Respiratory: Yes COPD Cardiac: Yes High Cholesterol, Hypertension Neurological: No Stroke, TIA Genitourinary: Yes ( 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), left ureteral stent) Benign Prostatic Hyperpl, Bladder Infection Gastrointestinal: Yes Abdominal Hernia, Gastroesophageal Reflux Musculoskeletal: No Degenerate Disk Disease, Arthritis Endocrine: Yes Diabetes, Non-Insulin dep HEENT: No Hearing Impairment: Hard of Hearing Cancer: No What Type of Treatment Did You: Surgical Intervention Psychosocial: No Anxiety, Depression Integumentary: No Blood Disorders: No Family Medical History SOCIAL HISTORY: -SMOKES AT LEAST 1 PPD -ETOH--WAS > 30 PACK / DAY, IN THE LAST YEAR DRINKS AT LEAST 12 PACK/DAY, NO HISTORY OF WITHDRAWL SYMPTOMS -DRUGS--THC DAILY PT MOVED HERE IN 2021 FROM [place] Physical Exam Vital Signs Vital Signs - First Documented 02/01/23 20:44 Temp 37.3 Pulse 78 Resp 16 B/P (MAP) 142/106 (118) Pulse Ox 95 O2 Delivery Room Air Capillary Refill : Less Than 3 Seconds Height, Weight, BMI Height: '" Weight: lbs. oz. kg; 17.00 BMI Method: General Appearance: No Apparent Distress, WD/WN HEENT: Normal ENT Inspection, Pharynx Normal Neck: Normal Inspection, Non Tender, Supple Respiratory: Chest Non Tender, Lungs Clear, Normal Breath Sounds, No Accessory Muscle Use, No Respiratory Distress Cardiovascular: Regular Rate, Rhythm, No Murmur, Normal Peripheral Pulses Gastrointestinal: Normal Bowel Sounds, No Organomegaly, Non Tender, Soft Extremity: Normal Capillary Refill, Normal Inspection, Non Tender, No Calf Tenderness, No Pedal Edema Neurologic/Psychiatric: Alert, Oriented x3, No Motor/Sensory Deficits, Normal Mood/Affect, 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 Norm as Tested Skin: Normal Color, Warm/Dry Progress/Results/Core Measures Suspected Sepsis SIRS Temperature: Pulse: 78 Respiratory Rate: 16 Laboratory Tests 02/01/23 21:40: White Blood Count 8.5 Blood Pressure 142 /106 Mean: 118 Laboratory Tests 02/01/23 21:40: Creatinine 0.84, Platelet Count 255, Total Bilirubin 0.8 Results/Orders Lab Results Laboratory Tests Test 02/01/23 21:05 02/01/23 21:40 Range/Units Urine Color YELLOW Urine Clarity TURBID Urine pH 6.0 5-9 Urine Specific Lucas 1.015 L 1.016-1.022 Urine Protein 2+ H NEGATIVE Urine Glucose (UA) 3+ H NEGATIVE Urine Ketones 1+ H NEGATIVE Urine Nitrite POSITIVE H NEGATIVE Urine Bilirubin NEGATIVE NEGATIVE Urine Urobilinogen 1.0 < = 1.0 MG/DL Urine Leukocyte Esterase 3+ H NEGATIVE Urine RBC (Auto) 2+ H NEGATIVE Urine RBC 2-5 H /HPF Urine WBC >100 H /HPF Urine Squamous Epithelial Cells NONE /HPF Urine Crystals NONE /LPF Urine Bacteria LARGE H /HPF Urine Casts NONE /LPF Urine Mucus NEGATIVE /LPF Urine Other TRANS EPI 0-2 /HPF Urine Culture Indicated YES White Blood Count 8.5 4.3-11.0 10^3/uL Red Blood Count 4.30 4.30-5.52 10^6/uL Hemoglobin 13.6 13.3-17.7 g/dL Hematocrit 40 40-54 % Mean Corpuscular Volume 94 80-99 fL Mean Corpuscular Hemoglobin 32 25-34 pg Mean Corpuscular Hemoglobin Concent 34 32-36 g/dL Red Cell Distribution Width 12.9 10.0-14.5 % Platelet Count 255 130-400 10^3/uL Mean Platelet Volume 9.2 9.0-12.2 fL Immature Granulocyte % (Auto) 1 % Neutrophils (%) (Auto) 80 H 42-75 % Lymphocytes (%) (Auto) 10 L 12-44 % Monocytes (%) (Auto) 9 0-12 % Eosinophils (%) (Auto) 0 0-10 % Basophils (%) (Auto) 0 0-10 % Neutrophils # (Auto) 6.9 1.8-7.8 10^3/uL Lymphocytes # (Auto) 0.8 L 1.0-4.0 10^3/uL Monocytes # (Auto) 0.8 0.0-1.0 10^3/uL Eosinophils # (Auto) 0.0 0.0-0.3 10^3/uL Basophils # (Auto) 0.0 0.0-0.1 10^3/uL Immature Granulocyte # (Auto) 0.0 0.0-0.1 10^3/uL Sodium Level 136 135-145 MMOL/L Potassium Level 4.1 3.6-5.0 MMOL/L Chloride Level 103 98-107 MMOL/L Carbon Dioxide Level 20 L 21-32 MMOL/L Anion Gap 13 5-14 MMOL/L Blood Urea Nitrogen 21 H 7-18 MG/DL Creatinine 0.84 0.60-1.30 MG/DL Estimat Glomerular Filtration Rate 94 BUN/Creatinine Ratio 25 Glucose Level 129 H 70-105 MG/DL Calcium Level 9.3 8.5-10.1 MG/DL Corrected Calcium 9.5 8.5-10.1 MG/DL Total Bilirubin 0.8 0.1-1.0 MG/DL Aspartate Amino Transf (AST/SGOT) 10 5-34 U/L Alanine Aminotransferase (ALT/SGPT) 12 0-55 U/L Alkaline Phosphatase 70 40-136 U/L Total Protein 6.2 L 6.4-8.2 GM/DL Albumin 3.7 3.2-4.5 GM/DL My Orders Orders - ANTHONY MARTE DO Ua Culture If Indicated (02/01/23 21:00) Comprehensive Metabolic Panel (02/01/23 21:29) Cbc And Automated Diff (02/01/23 21:29) Ed Iv/Invasive Line Start (02/01/23 21:29) Ns Iv 1000 Ml (Ns Iv 1000 Ml) (02/01/23 21:30) Urine Culture (02/01/23 21:05) Cephalexin Capsule (Cephalexin Capsule) (02/01/23 22:38) Vital Signs/I&O 02/01/23 02/01/23 20:44 22:48 Temp 37.3 37.0 Pulse 78 75 Resp 16 16 B/P (MAP) 142/106 (118) 142/75 Pulse Ox 95 96 O2 Delivery Room Air Room Air Capillary Refill : Less Than 3 Seconds Blood Pressure Mean: 118 Departure Communication (Admissions) Patient is hemodynamically stable overall nontoxic on exam with no focal exam findings. Chest x-ray is negative for any acute cardiopulmonary abnormality. I have reviewed the imaging personally as well. Labs are reassuring with no acute abnormalities. He is given some IV fluids while awaiting lab results and he states he is feeling slightly better. Overall no emergent medical conditions identified for your symptoms today and are likely related to chronic deconditioning from his stroke a month ago. He has no new focal neurodeficits or really any residual deficits from stroke outside of some transient confusion at times. His states this has been normal since his stroke. He is afebrile no neck stiffness headache or anything else indicate meningitis encephalitis or other acute neurologic emergency. He is discharged home in stable condition with supportive care. Impression Primary Impression: UTI (urinary tract infection) Qualified Codes: N30.01 - Acute cystitis with hematuria Disposition: HOME, SELF-CARE Condition: Stable Departure-Patient Inst. Referrals: LIAN TIPTON MD,RESIDENT (PCP/Family) Primary Care Physician Patient Instructions: Urinary Tract Infection, Adult (DC) Add. Discharge Instructions: Take the antibiotics as prescribed until they are gone. Increase his fluids at home and allow him to rest as needed. Continue working with PT and OT to regain his strength. Return to the emergency department for any severe concerns. All discharge instructions reviewed with patient and/or family. Voiced understanding. Scripts Cephalexin (Cephalexin) 500 Mg Tablet 500 MG PO BID for 7 Days, #14 TAB Prov: ANTHONY MARTE DO 02/01/23 ANTHONY MARTE DO Feb 01, 2023 22:44
[2023-02-01 22:48] VITALS: BP 142/75
== END 2023-02-01 22:51 | disposition home or self-care (01) ==
LOC: EDUNIT# 20:32 → ER 20:35
DX: N39.0 Urinary tract infection, site not specified (principal); F17.210 Nicotine dependence, cigarettes, uncomplicated
CPT/HCPCS: 36415; 80053; 81000; 85025; 87077; 87088; 87186